=== PATIENT | female | born 1950 | race American Indian/Alaskan Native ===

== ENCOUNTER 2019-06-26 05:03 | Inpatient (IN) | payer MEDICARE ==
[2019-06-26] MEDS ORDERED: dilTIAZem 50 MG/10 ML INJ IV ONE (05:07)
[2019-06-26] MEDS ORDERED: SODIUM CHLORIDE 0.9% 1000 ML 1,000 ML IV ONE (05:07)
--- NOTE | 2019-06-26 05:09 | Emergency Department Report ---
ED Palpitations HPI - General Stated Complaint: DIFFICULTY IN BREATHING Time Seen by Provider: 06/26/19 05:05 Source: patient, EMS Mode of arrival: Stretcher Limitations: No Limitations - History of Present Illness Initial Comments: Patient is a 68-year-old female that presents emergency complaints of shortness of breath patient states that cough approximately 3 days. Patient states she's had nausea and vomiting for 3 days. Patient's initial arrival and now. Patient denies fever and chills. Patient denies chest pain. Patient states she called EMS because her shortness of breath worsened. MD Complaint: rapid heart beat, "heart racing", palpitations -: Sudden Context: occured during rest Associated Symptoms: shortness of breath. denies: syncope, near-syncope, nausea /vomiting, anxiety, diaphoresis, cough, parasthesias, feeling of impending doom, muscle cramps - Related Data Home Medications Medication Instructions Recorded Confirmed Last Taken Bisoprolol/Hctz (Nf) [Ziac 5/6.25 1 tab PO DAILY 03/18/14 03/18/14 03/18/14 (Nf)] HYDROcodone/ACETAMINOPHEN 1 tab PO PRN 03/18/14 03/18/14 Unknown [Hydrocodone Acetaminophen(Nf) 7.5/500 mg Tab] Methscopolamine [place] [Pamine] 1 tab PO DAILY 03/18/14 03/18/14 Unknown Allergies Allergy/AdvReac Type Severity Reaction Status Date / Time No Known Allergies Allergy Verified 03/18/14 13:43 ED Review of Systems ROS: Stated complaint: DIFFICULTY IN BREATHING Other details as noted in HPI Constitutional: denies: chills, fever Eyes: denies: eye pain, eye discharge, vision change ENT: denies: ear pain, throat pain Respiratory: shortness of breath. denies: cough, wheezing Cardiovascular: denies: chest pain, palpitations Endocrine: no symptoms reported Gastrointestinal: denies: abdominal pain, nausea, diarrhea Genitourinary: denies: urgency, dysuria, discharge Musculoskeletal: denies: back pain, joint swelling, arthralgia Skin: denies: rash, lesions Neurological: denies: headache, weakness, paresthesias Psychiatric: denies: anxiety, depression Hematological/Lymphatic: denies: easy bleeding, easy bruising ED Past Medical Hx - Past Medical History Previous Medical History?: Yes Hx Hypertension: Yes Hx Asthma: No Hx COPD: No Hx Tuberculosis: No Hx HIV: No Additional medical history: Mouth cancer. - Surgical History Past Surgical History?: Yes Hx Appendectomy: Yes (CHILDHOOD) Additional Surgical History: Mouth surgery of her mouth cancer. - Family History Family history: no significant - Social History Smoking Status: Never Smoker Substance Use Type: None - Medications Home Medications: Home Medications Medication Instructions Recorded Confirmed Last Taken Type Bisoprolol/Hctz (Nf) [Ziac 5/6.25 1 tab PO DAILY 03/18/14 03/18/14 03/18/14 History (Nf)] HYDROcodone/ACETAMINOPHEN 1 tab PO PRN 03/18/14 03/18/14 Unknown History [Hydrocodone Acetaminophen(Nf) 7.5/500 mg Tab] Methscopolamine [place] [Pamine] 1 tab PO DAILY 03/18/14 03/18/14 Unknown History ED Physical Exam - General Limitations: Physical Limitation General appearance: alert, in no apparent distress - Head Head exam: Present: atraumatic, normocephalic - Eye Eye exam: Present: normal appearance - ENT ENT exam: Present: mucous membranes dry - Neck Neck exam: Present: normal inspection - Respiratory Respiratory exam: Present: normal lung sounds bilaterally, rhonchi. Absent: respiratory distress, wheezes - Cardiovascular Cardiovascular Exam: Present: regular rate, normal rhythm, tachycardia. Absent: systolic murmur, diastolic murmur, rubs, gallop - GI/Abdominal GI/Abdominal exam: Present: soft, normal bowel sounds. Absent: distended, tenderness - Extremities Exam Extremities exam: Present: normal inspection - Back Exam Back exam: Present: normal inspection - Neurological Exam Neurological exam: Present: alert, oriented X3 - Psychiatric Psychiatric exam: Present: normal affect, normal mood - Skin Skin exam: Present: warm, dry, intact, normal color. Absent: rash ED Course Vital Signs 06/26/19 06/26/19 06/26/19 05:10 05:16 05:20 Temperature 103.2 F H Pulse Rate 155 H 153 H Respiratory 41 H 39 H 1 L Rate Blood Pressure 159/77 06/26/19 06/26/19 06/26/19 05:21 05:30 05:45 Temperature 103.2 F H Pulse Rate 155 H 153 H 148 H Respiratory 22 37 H 38 H Rate Blood Pressure 159/77 159/77 138/62 06/26/19 06/26/19 06/26/19 06:00 06:15 06:30 Temperature Pulse Rate 151 H 121 H Respiratory 33 H 25 H 26 H Rate Blood Pressure 109/91 109/91 109/91 - Reevaluation(s) Reevaluation #1: Patient placed on cardiac nurse specialist and shows an irregular rate of greater than 150. Patient will be given a Cardizem push and given fluids. Patient found to be febrile. Patient was given rectal Tylenol and given fluids. Sepsis protocol initiated. 06/26/19 05:15 Reevaluation #2: Nurses unable to obtain as peripheral IV and central line placed. Patient given Cardizem and heart rate decreased. Patient will be given fluids. Patient placed on a Cardizem drip. 06/26/19 0550 Reevaluation #3: I discussed all results and plan of care with patient. Patient agrees plan of care. 06/26/19 06:16 - Consultations Consultation #1: Hospitalist consulted for admission. Hospitalist admit patient. 06/26/19 06:17 - Central Line Placement Right Femoral Consent Obtained: verbal consent, emergent situation Time Out Performed: Yes Patient Placed on Monitor/Pulse Ox: Yes MD Prep: mask, gown, gloves Central Line Prep: Povidone-Iodine 1%, Chlorhexidine scrub, sterile drapes applied Local Anesthesia Used: Lidocaine 1% Ultrasound Used for Placement: Yes Central Line Lumen Inserted: triple Bloods Obtained for Lab: Yes Central Line Position: good blood return, all ports aspirated, flus, sutured in place with 2-0 Dressing Applied: Tegaderm Patient Tolerated Procedure: well, no complications Complications: none ED Medical Decision Making - Lab Data Result diagrams: 06/26/19 05:43 06/26/19 05:43 - EKG Data -: EKG Interpreted by Me EKG shows normal: sinus rhythm, axis, intervals, QRS complexes, ST-T waves Rate: tachycardia - Radiology Data Radiology results: report reviewed, image reviewed interpreted by me: Bilateral pneumonia. - Medical Decision Making Patient is a 68-year-old female that presents emergency room with complaints of shortness of breath and cough. Patient also had nausea and vomiting for 3 days. Patient found to be febrile and tachycardic. Patient's tachycardic rhythm appears to be SVT and was given Cardizem. Nursing notes were obtained peripheral IV and a right femoral central line placed. See procedure note. Patient had x-ray which shows bilateral pneumonia. Patient's labs unremarkable except for lactic acidosis. Patient given fluids and antibiotics. Patient given Tylenol for her fever. - Differential Diagnosis pneumonia, sepsis, SIRS, nausea vomiting, SVT, tachycardia Critical Care Time: Yes Critical care time in (mins) excluding proc time.: 35 Critical care attestation.: If time is entered above; I have spent that time in minutes in the direct care of this critically ill patient, excluding procedure time. Critical Care Time: 35 minutes ED Disposition Clinical Impression: Tachycardia, Cough, SVT (supraventricular tachycardia), Lactic acid acidosis, SOB (shortness of breath) Fever Qualifiers: Fever type: unspecified Qualified Code(s): R50.9 - Fever, unspecified Pneumonia Qualifiers: Pneumonia type: due to unspecified organism Laterality: bilateral Lung location: unspecified part of lung Qualified Code(s): J18.9 - Pneumonia, unspecified organism Sepsis Qualifiers: Sepsis type: sepsis due to unspecified organism Sepsis acute organ dysfunction status: without acute organ dysfunction Qualified Code(s): A41.9 - Sepsis, unspecified organism Disposition: DC-09 OP ADMIT IP TO THIS HOSP Is pt being admited?: Yes Does the pt Need Aspirin: No Condition: Critical Time of Disposition: 06:16
[2019-06-26] MEDS ORDERED: SODIUM CHLORIDE 0.9% 1000 ML IV SOLN IV ONE (05:16)
[2019-06-26] MEDS ORDERED: CEFEPIME/NS 2 GM/100 ML 2 GM/100 ML BAG IV ONE (05:17)
[2019-06-26] MEDS ORDERED: ACETAMINOPHEN 500 MG TAB ONE (05:33)
--- NOTE | 2019-06-26 05:36 | XRay Report ---
CHEST 1 VIEW INDICATION: tachy. COMPARISON: None. FINDINGS: Support devices: None. Heart: Normal. Lungs/Pleura: There are patchy bilateral pulmonary opacities. No significant effusion, no pneumothora x. IMPRESSION: 1. Patchy bilateral airspace disease is concerning for multifocal pneumonia. Follow-up is recommended . Signer Name: Adam Sullivan MD Signed: 06/26/2019 5:31 AM Workstation Name: [id number]
[2019-06-26] MEDS ORDERED: ACETAMINOPHEN 325 MG/10.15 ML ORAL LIQD UNIT DOSE ONE (05:39)
[2019-06-26] MEDS ORDERED: ACETAMINOPHEN 325 MG/10.15 ML ORAL LIQD UNIT DOSE PO ONE (05:40)
[2019-06-26] MEDS ORDERED: LIDOCAINE (2%) 20 MG/1 ML VIAL 20 ML MDV INFILTRATI ONE (05:48)
[2019-06-26 05:56] LABS: Hematocrit 40.7 % (30.3-42.9); Hemoglobin 14.3 gm/dl (10.1-14.3); Mean Corpuscular HGB Conc 35 % (30-34); Mean Corpuscular Volume 100 fl (79-97); Platelet Count 287 K/mm3 (140-440); Red Blood Count 4.08 M/mm3 (3.65-5.03); Red Cell Distribution Width 14.5 % (13.2-15.2)
[2019-06-26] MEDS ORDERED: dilTIAZem/D5W 100 MG/100 ML BAG IV SCH ×2 (06:00→07:00)
[2019-06-26 06:08] LABS: Alanine Aminotransferase 49 units/L (7-56); Albumin 4.1 g/dL (3.9-5); BUN/Creatinine Ratio 17; Blood Urea Nitrogen 15 mg/dL (7-17); Calcium 9.5 mg/dL (8.4-10.2); Hemolysis Index 4
[2019-06-26 06:54] LABS: Band Neutrophils # (Manual) 0.5 K/mm3; Basophils % (Manual) 0 % (0.0-1.8); Eosinophils % (Manual) 0 % (0.0-4.3); Platelet Estimate Consistent w Auto; Total Cells Counted 100
[2019-06-26 07:43] LABS: Bacteria,Urine 1+ /HPF (Negative); Bilirubin,Urine NEG (Negative); Blood,Urine NEG (Negative); Color,Urine Straw (Yellow); Mucus,Urine FEW /HPF; Protein,Urine <15 mg/dL mg/dL (Negative); Urobilinogen,Urine < 2.0 mg/dL (<2.0)
[2019-06-26 07:48] LABS: Amphetamine Screen,Urine PRESUMPTIVE NEGATIVE; Benzodiazepines Screen,Urine PRESUMPTIVE NEGATIVE; Cannabinoid Screen,Urine PRESUMPTIVE NEGATIVE; Cocaine Screen,Urine PRESUMPTIVE NEGATIVE; Methadone Screen,Urine PRESUMPTIVE NEGATIVE; Opiate Screen,Urine PRESUMPTIVE NEGATIVE
[2019-06-26] MEDS ORDERED: [UNRECOGNIZED DRUG - OTHER] PO PRN (09:46)
[2019-06-26] MEDS ORDERED: HYDROCODONE PO PRN (09:46)
[2019-06-26] MEDS ORDERED: ACETAMINOPHEN PO PRN (09:46)
[2019-06-26] MEDS ORDERED: ACETAMINOPHEN 325 MG TAB PO PRN (09:47)
[2019-06-26] MEDS ORDERED: ONDANSETRON 4 MG/2 ML INJ IV PRN (09:47)
--- NOTE | 2019-06-26 09:51 | History and Physical Report ---
History of Present Illness Date of admission: 06/26/19 06:36 Chief complaint: Shortness of breath History of present illness: 68-year-old woman who presents to the hospital with cough x3 days. Associated with nausea vomiting. She also did not check her temperature at home. Does not know if she is having fevers. She reports palpitations, feeling like her heart is racing away from her.She also presents complaining of palpitations. She is reporting fatigue malaise, and just feels quite terrible. She denies any sick contacts. She states that she had bronchitis a long time ago but does not usually have lung problems. Past medical history; hypertension, history of mouth cancer Surgical history; appendectomy, and mild surgery for mouth cancer Family history; non contributory social hx; denies hx of smoker Medications and Allergies Allergies Allergy/AdvReac Type Severity Reaction Status Date / Time No Known Allergies Allergy Verified 03/18/14 13:43 Home Medications Medication Instructions Recorded Confirmed Last Taken Type Bisoprolol/Hctz (Nf) [Ziac 5/6.25 1 tab PO DAILY 03/18/14 06/26/19 03/18/14 History (Nf)] HYDROcodone/ACETAMINOPHEN 1 tab PO PRN 03/18/14 06/26/19 Unknown History [Hydrocodone Acetaminophen(Nf) 7.5/500 mg Tab] Methscopolamine [place] [Pamine] 1 tab PO DAILY 03/18/14 06/26/19 Unknown History Active Meds: Active Medications Acetaminophen (Tylenol) 650 mg PO Q4H PRN PRN Reason: Pain MILD(1-3)/Fever >100.5/CALLEJAS Miscellaneous Medication (Methscopolamine [place] [Pamine]) 1 tab PO DAILY PEPE Miscellaneous Medication (Hydrocodone/Acetaminophen [Hydrocodone Acetaminophen(Nf) 7.5/500 Mg Tab]) 1 tab PO Q6H PRN PRN Reason: Pain, Moderate (4-6) Ondansetron HCl (Zofran) 4 mg IV Q8H PRN PRN Reason: Nausea And Vomiting Sodium Chloride (Sodium Chloride Flush Syringe 10 Ml) 10 ml IV BID PEPE Sodium Chloride (Sodium Chloride Flush Syringe 10 Ml) 10 ml IV PRN PRN PRN Reason: LINE FLUSH Review of Systems All systems: negative Exam - Constitutional Vitals: Temp Pulse Resp BP Pulse Ox 100.4 F H 114 H 26 H 169/69 88 06/26/19 07:20 06/26/19 09:30 06/26/19 09:30 06/26/19 09:30 06/26/19 09:00 General appearance: Present: severe distress, well-nourished - EENT Eyes: Present: PERRL ENT: hearing intact, clear oral mucosa - Neck Neck: Present: supple, normal ROM - Respiratory Respiratory effort: normal Respiratory: bilateral: diminished, rhonchi - Cardiovascular Heart Sounds: Present: S1 & S2. Absent: rub, click - Extremities Extremities: pulses symmetrical, No edema Peripheral Pulses: within normal limits - Abdominal General gastrointestinal: Present: soft, non-tender, non-distended, normal bowel sounds Female genitourinary: Present: normal - Integumentary Integumentary: Present: clear, warm, dry - Musculoskeletal Musculoskeletal: gait normal, strength equal bilaterally - Psychiatric Psychiatric: appropriate mood/affect, intact judgment & insight - Neurologic Neurologic: CNII-XII intact, moves all extremities Results - Labs CBC & Chem 7: 06/26/19 05:43 06/26/19 05:43 Labs: Laboratory Last Values WBC 10.4 K/mm3 (4.5-11.0) 06/26/19 05:43 RBC 4.08 M/mm3 (3.65-5.03) 06/26/19 05:43 Hgb 14.3 gm/dl (10.1-14.3) 06/26/19 05:43 Hct 40.7 % (30.3-42.9) 06/26/19 05:43 MCV 100 fl (79-97) H 06/26/19 05:43 MCH 35 pg (28-32) H 06/26/19 05:43 MCHC 35 % (30-34) H 06/26/19 05:43 RDW 14.5 % (13.2-15.2) 06/26/19 05:43 Plt Count 287 K/mm3 (140-440) 06/26/19 05:43 Add Manual Diff Complete 06/26/19 05:43 Total Counted 100 06/26/19 05:43 Seg Neutrophils % Repossession Agent 06/26/19 05:43 Seg Neuts % (Manual) 87.0 % (40.0-70.0) H 06/26/19 05:43 Band Neutrophils % 5.0 % 06/26/19 05:43 Lymphocytes % (Manual) 6.0 % (13.4-35.0) L 06/26/19 05:43 Reactive Lymphs % (Man) 0 % 06/26/19 05:43 Monocytes % (Manual) 2.0 % (0.0-7.3) 06/26/19 05:43 Eosinophils % (Manual) 0 % (0.0-4.3) 06/26/19 05:43 Basophils % (Manual) 0 % (0.0-1.8) 06/26/19 05:43 Metamyelocytes % 0 % 06/26/19 05:43 Myelocytes % 0 % 06/26/19 05:43 Promyelocytes % 0 % 06/26/19 05:43 Blast Cells % 0 % 06/26/19 05:43 Nucleated RBC % Not Reportable 06/26/19 05:43 Seg Neutrophils # Man 9.0 K/mm3 (1.8-7.7) H 06/26/19 05:43 Band Neutrophils # 0.5 K/mm3 06/26/19 05:43 Lymphocytes # (Manual) 0.6 K/mm3 (1.2-5.4) L 06/26/19 05:43 Abs React Lymphs (Man) 0.0 K/mm3 06/26/19 05:43 Monocytes # (Manual) 0.2 K/mm3 (0.0-0.8) 06/26/19 05:43 Eosinophils # (Manual) 0.0 K/mm3 (0.0-0.4) 06/26/19 05:43 Basophils # (Manual) 0.0 K/mm3 (0.0-0.1) 06/26/19 05:43 Metamyelocytes # 0.0 K/mm3 06/26/19 05:43 Myelocytes # 0.0 K/mm3 06/26/19 05:43 Promyelocytes # 0.0 K/mm3 06/26/19 05:43 Blast Cells # 0.0 K/mm3 06/26/19 05:43 WBC Morphology Not Reportable 06/26/19 05:43 Hypersegmented Neuts Not Reportable 06/26/19 05:43 Hyposegmented Neuts Not Reportable 06/26/19 05:43 Hypogranular Neuts Not Reportable 06/26/19 05:43 Smudge Cells Not Reportable 06/26/19 05:43 Toxic Granulation Not Reportable 06/26/19 05:43 Toxic Vacuolation Not Reportable 06/26/19 05:43 Dohle Bodies Not Reportable 06/26/19 05:43 Pelger-Huet Anomaly Not Reportable 06/26/19 05:43 Ty Rods Not Reportable 06/26/19 05:43 Platelet Estimate Consistent w auto 06/26/19 05:43 Clumped Platelets Not Reportable 06/26/19 05:43 Plt Clumps, EDTA Not Reportable 06/26/19 05:43 Large Platelets Not Reportable 06/26/19 05:43 Giant Platelets Not Reportable 06/26/19 05:43 Platelet Satelliting Not Reportable 06/26/19 05:43 Plt Morphology Comment Not Reportable 06/26/19 05:43 RBC Morphology Not Reportable 06/26/19 05:43 Dimorphic RBCs Not Reportable 06/26/19 05:43 Polychromasia Not Reportable 06/26/19 05:43 Hypochromasia Not Reportable 06/26/19 05:43 Poikilocytosis Not Reportable 06/26/19 05:43 Anisocytosis Not Reportable 06/26/19 05:43 Microcytosis Not Reportable 06/26/19 05:43 Macrocytosis Not Reportable 06/26/19 05:43 Spherocytes Not Reportable 06/26/19 05:43 Pappenheimer Bodies Not Reportable 06/26/19 05:43 Sickle Cells Not Reportable 06/26/19 05:43 Target Cells Not Reportable 06/26/19 05:43 Tear Drop Cells Not Reportable 06/26/19 05:43 Ovalocytes Not Reportable 06/26/19 05:43 Helmet Cells Not Reportable 06/26/19 05:43 [place] Bodies Not Reportable 06/26/19 05:43 [place] Rings Not Reportable 06/26/19 05:43 [place] Cells Not Reportable 06/26/19 05:43 Bite Cells Not Reportable 06/26/19 05:43 Crenated Cell Not Reportable 06/26/19 05:43 Elliptocytes Not Reportable 06/26/19 05:43 Acanthocytes (Spur) Not Reportable 06/26/19 05:43 Rouleaux Not Reportable 06/26/19 05:43 Hemoglobin C Crystals Not Reportable 06/26/19 05:43 Schistocytes Not Reportable 06/26/19 05:43 Malaria parasites Not Reportable 06/26/19 05:43 [place] Bodies Not Reportable 06/26/19 05:43 Hem Pathologist Commnt No 06/26/19 05:43 Sodium 141 mmol/L (137-145) 06/26/19 05:43 Potassium 3.7 mmol/L (3.6-5.0) 06/26/19 05:43 Chloride 95.9 mmol/L (98-107) L 06/26/19 05:43 Carbon Dioxide 28 mmol/L (22-30) 06/26/19 05:43 Anion Gap 21 mmol/L 06/26/19 05:43 BUN 15 mg/dL (7-17) 06/26/19 05:43 Creatinine 0.9 mg/dL (0.7-1.2) 06/26/19 05:43 Estimated GFR > 60 ml/min 06/26/19 05:43 BUN/Creatinine Ratio 17 % 06/26/19 05:43 Glucose 153 mg/dL (65-100) H 06/26/19 05:43 Lactic Acid 6.00 mmol/L (0.7-2.0) H* 06/26/19 05:43 Calcium 9.5 mg/dL (8.4-10.2) 06/26/19 05:43 Total Bilirubin 0.40 mg/dL (0.1-1.2) 06/26/19 05:43 AST 100 units/L (5-40) H 06/26/19 05:43 ALT 49 units/L (7-56) 06/26/19 05:43 Alkaline Phosphatase 54 units/L (35-129) 06/26/19 05:43 Troponin T < 0.010 ng/mL (0.00-0.029) 06/26/19 05:43 Total Protein 7.6 g/dL (6.3-8.2) 06/26/19 05:43 Albumin 4.1 g/dL (3.9-5) 06/26/19 05:43 Albumin/Globulin Ratio 1.2 % 06/26/19 05:43 Urine Color Straw (Yellow) 06/26/19 Unknown Urine Turbidity Clear (Clear) 06/26/19 Unknown Urine pH 6.0 (5.0-7.0) 06/26/19 Unknown Ur Specific [place] 1.006 (1.003-1.030) 06/26/19 Unknown Urine Protein <15 mg/dl mg/dL (Negative) 06/26/19 Unknown Urine Glucose (UA) Neg mg/dL (Negative) 06/26/19 Unknown Urine Ketones Neg mg/dL (Negative) 06/26/19 Unknown Urine Blood Neg (Negative) 06/26/19 Unknown Urine Nitrite Neg (Negative) 06/26/19 Unknown Urine Bilirubin Neg (Negative) 06/26/19 Unknown Urine Urobilinogen < 2.0 mg/dL (<2.0) 06/26/19 Unknown Ur Leukocyte Esterase Neg (Negative) 06/26/19 Unknown Urine WBC (Auto) 1.0 /HPF (0.0-6.0) 06/26/19 Unknown Urine RBC (Auto) 1.0 /HPF (0.0-6.0) 06/26/19 Unknown Urine Bacteria (Auto) 1+ /HPF (Negative) 06/26/19 Unknown Urine Mucus Few /HPF 06/26/19 Unknown Urine Opiates Screen Presumptive negative 06/26/19 Unknown Urine Methadone Screen Presumptive negative 06/26/19 Unknown Ur Barbiturates Screen Presumptive negative 06/26/19 Unknown Ur Phencyclidine Scrn Presumptive negative 06/26/19 Unknown Ur Amphetamines Screen Presumptive negative 06/26/19 Unknown U Benzodiazepines Scrn Presumptive negative 06/26/19 Unknown Urine Cocaine Screen Presumptive negative 06/26/19 Unknown U Marijuana (THC) Screen Presumptive negative 06/26/19 Unknown Drugs of Abuse Note Disclamer 06/26/19 Unknown Assessment and Plan Assessment and plan: 68-year-old woman who was in the hospital with cough sob and palpitations. Multifocal pneumonia/sepsis Likely gram-positive bacteria Empiric antibiotics, sputum culture A. fib with RVR and hypercoagulable state Continue rate control medications, cardiology consult, echo. Will confer with cardiology about long-term stroke prophylaxis medications, she is only on prophylaxis with Lovenox at this time. She received Cardizem in ER with good response. Hypomagnesemia Repleted Hypothyroidism This is a new diagnosis for the patient, will hold off on giving Synthroid at this time as patient is tachycardic with RVR. Acute hypoxic respiratory failure Continue supplemental oxygen, wean as tolerated Hypertension Optimize meds. DVT prophylaxis; lovenox
[2019-06-26] MEDS ORDERED: METHSCOPOLAMINE BROMIDE PO SCH (10:00)
[2019-06-26] MEDS ORDERED: carvediloL 6.25 MG TAB PO SCH (11:00)
[2019-06-26] MEDS ORDERED: carvediloL 6.25 MG TAB ONE (11:17)
--- NOTE | 2019-06-26 11:20 | Consultation ---
History of Present Illness Consult date: 06/26/19 Requesting physician: WM THAYER Consult reason: atrial fibrillation History of present illness: The pt is a 68 YO female with a past medical history of HTN. She is previously unknown to our practice. She is a rather poor historian. She states she does not know why she is in the hospital. She does recall experiencing some SOB prior to arrival. She states she is very sleepy. Per ED documentation, pt presented with c/o shortness of n/v, breath and cough for approximately 3 days. Pt denies any occurrence of chest pain, palpitations, diaphoresis, dizziness or syncope. Per ED documentation, patient was placed on court recording monitor which showed an irregular rate of greater than 150, suspected to be AFib with RVR, and was given cardizem and initiated on cardizem gtt thus cardiology has been consulted. However, review of telemetry and ECGs since admission shows sinus tachycardia, no AFib or AFlutter noted. On evaluation, pt is in sinus tachycardia HR 100s - 110s. She is not currently receiving IV cardizem. She is on O2 via venti mask. CXR shows bilateral infiltrates suspicious for PNA. Pt denies any known prior cardiac issues or cardiac w/u. Past History Past Medical History: hypertension Medications and Allergies Allergies Allergy/AdvReac Type Severity Reaction Status Date / Time No Known Allergies Allergy Verified 03/18/14 13:43 Home Medications Medication Instructions Recorded Confirmed Last Taken Type Bisoprolol/Hctz (Nf) [Ziac 5/6.25 1 tab PO DAILY 03/18/14 03/18/14 03/18/14 History (Nf)] HYDROcodone/ACETAMINOPHEN 1 tab PO PRN 03/18/14 03/18/14 Unknown History [Hydrocodone Acetaminophen(Nf) 7.5/500 mg Tab] Methscopolamine [place] [Pamine] 1 tab PO DAILY 03/18/14 03/18/14 Unknown History Active Meds: Active Medications Acetaminophen (Tylenol) 650 mg PO Q4H PRN PRN Reason: Pain MILD(1-3)/Fever >100.5/CALLEJAS Acetaminophen/Hydrocodone Bitart ([place] 7.5/325) 1 each PO Q6H PRN PRN Reason: Pain, Moderate (4-6) Carvedilol (Coreg) 6.25 mg PO BID [facility] Enoxaparin Sodium (Enoxaparin) 40 mg SUB-Q QDAY@2200 [facility] Ceftriaxone Sodium (Rocephin/Ns 1 Gm/50 Ml) 1 gm in 50 mls @ 100 mls/hr IV Q24HR [facility]; Protocol Azithromycin 500 mg/ Sodium (Chloride) 250 mls @ 250 mls/hr IV Q24HR [facility]; Protocol Sodium Chloride (Nacl 0.9% 1000 Ml) 1,000 mls @ 75 mls/hr IV DIRECT [facility]PE Magnesium Sulfate (Magnesium Sulfate 4gm/100ml) 4 gm in 100 mls @ 25 mls/hr IV ONCE ONE Stop: 06/26/19 15:59 Miscellaneous Medication (Methscopolamine [place] [Pamine]) 1 tab PO DAILY [facility] Last Admin: 06/26/19 11:11 Dose: Not Given Documented by: Ondansetron HCl (Zofran) 4 mg IV Q8H PRN PRN Reason: Nausea And Vomiting Sodium Chloride (Sodium Chloride Flush Syringe 10 Ml) 10 ml IV BID [facility] Last Admin: 06/26/19 10:00 Dose: 10 ml Documented by: Sodium Chloride (Sodium Chloride Flush Syringe 10 Ml) 10 ml IV PRN PRN PRN Reason: LINE FLUSH Review of Systems Constitutional: no weight loss, no weight gain, no fever, no chills, no sweats Ears, nose, mouth and throat: no ear pain, no nose pain, no sinus pressure, no sinus pain Cardiovascular: shortness of breath, no chest pain, no orthopnea, no palpitations, no rapid/irregular heart beat, no edema, no syncope, no lightheadedness, no leg edema Respiratory: cough, shortness of breath, no congestion, no wheezing, no pain on inspiration Gastrointestinal: no abdominal pain, no nausea, no vomiting, no diarrhea, no constipation, no change in bowel habits Genitourinary Female: no pelvic pain, no flank pain, no dysuria, no urinary frequency, no urgency Musculoskeletal: no neck stiffness, no neck pain, no shooting arm pain, no arm numbness/tingling, no low back pain, no shooting leg pain Integumentary: no rash, no pruritis, no redness, no sores, no wounds Neurological: no head injury, no paralysis, no weakness, no parathesias, no numbness, no tingling, no seizures, no syncope Psychiatric: no anxiety Endocrine: no cold intolerance, no heat intolerance Hematologic/Lymphatic: no easy bruising, no easy bleeding Allergic/Immunologic: no urticaria Physical Examination Vital Signs Pulse Resp 155 H 41 H 06/26/19 05:10 06/26/19 05:10 General appearance: no acute distress HEENT: Positive: PERRL, Normocephaly, Mucus Membranes Moist Neck: Positive: neck supple, trachea midline Cardiac: Positive: Regular Rhythm, S1/S2 Lungs: Positive: Decreased Breath Sounds, Rhonchi, Oxygen Neuro: Positive: Grossly Intact Abdomen: Negative: Tender Skin: Negative: Rash Musculoskeletal: No Pain Extremities: Absent: edema Results 06/26/19 05:43 06/26/19 05:43 Cardiac Enzymes 06/26/19 Range/Units 05:43 AST 100 H (5-40) units/L CBC 06/26/19 Range/Units 05:43 WBC 10.4 (4.5-11.0) K/mm3 RBC 4.08 (3.65-5.03) M/mm3 Hgb 14.3 (10.1-14.3) gm/dl Hct 40.7 (30.3-42.9) % Plt Count 287 (140-440) K/mm3 Comprehensive Metabolic Panel 06/26/19 Range/Units 05:43 Sodium 141 (137-145) mmol/L Potassium 3.7 (3.6-5.0) mmol/L Chloride 95.9 L (98-107) mmol/L Carbon Dioxide 28 (22-30) mmol/L BUN 15 (7-17) mg/dL Creatinine 0.9 (0.7-1.2) mg/dL Glucose 153 H (65-100) mg/dL Calcium 9.5 (8.4-10.2) mg/dL AST 100 H (5-40) units/L ALT 49 (7-56) units/L Alkaline Phosphatase 54 (35-129) units/L Total Protein 7.6 (6.3-8.2) g/dL Albumin 4.1 (3.9-5) g/dL - Imaging and Cardiology Echo: pending EKG: report reviewed, image reviewed EKG interpretations - Telemetry EKG Rhythm: Sinus Tachycardia - EKG Sinus rhythms and dysrhythmias: sinus tachycardia Assessment and Plan Review of telemetry and ECGs since admission shows sinus tachycardia, no AFib or AFlutter noted. On evaluation, pt is in sinus tachycardia HR 100s - 110s. She is not currently receiving IV cardizem. She is on O2 via venti mask. CXR shows bilateral infiltrates suspicious for PNA. Pt noted to be febrile, blood cultures pending. PNA management per primary team. Optimize HR - initiate PO Cardizem. Obtain echo and check thyroid profile. Cont to observe on telemetry. Further recs to follow per hospital course. The patient has been seen in conjunction with Dr. Singh who agrees with the assessment and plan of care. - Patient Problems (1) Sinus tachycardia Current Visit: Yes Status: Acute (2) Pneumonia Current Visit: Yes Status: Acute Qualifiers: Pneumonia type: due to unspecified organism Laterality: bilateral Lung location: unspecified part of lung Qualified Code(s): J18.9 - Pneumonia, unspecified organism (3) Fever Current Visit: Yes Status: Acute Qualifiers: Fever type: unspecified Qualified Code(s): R50.9 - Fever, unspecified (4) HTN (hypertension) Current Visit: Yes Status: Chronic
[2019-06-26] MEDS ORDERED: MAGNESIUM SULFATE 4 GM/100 ML BAG IV ONE (12:00)
[2019-06-26] MEDS: AZITHROMYCIN 500 MG in SODIUM CHLORIDE 0.9% 250ML 250 ML IV SCH (12:24)
[2019-06-26] MEDS: SODIUM CHLORIDE 0.9% 1000 ML 1,000 ML IV SCH (12:32)
[2019-06-26] MEDS: cefTRIAXone/NS 1 GM/50 ML 1 GM/50 ML BAG IV SCH (13:33)
--- NOTE | 2019-06-26 16:30 | Consultation ---
History of Present Illness Consult date: 06/26/19 Requesting physician: WM THAYER History of present illness: 68-year-old woman who presents to the hospital with cough x3 days. Associated with nausea vomiting. She also did not check her temperature at home. Does not know if she is having fevers. She reports palpitations, feeling like her heart is racing away from her.She also presents complaining of palpitations. She is reporting fatigue malaise, and just feels quite terrible. She denies any sick contacts. She states that she had bronchitis a long time ago but does not usua lly have lung problems. She was admitted to the ICU and I have been consulted fro critical care brandyn payne. She has been on 100% NRBM, which was switched to venturi mask. She complains of feeling very sleepy and tired. patient was seen and examined. Vitals, labs, medications, chart and imaging reviewed. ROS Constitutional: denies: chills, fever Eyes: denies: eye pain, eye discharge, vision change ENT: denies: ear pain, throat pain Respiratory: shortness of breath. denies: cough, wheezing Cardiovascular: denies: chest pain, palpitations Endocrine: no symptoms reported Gastrointestinal: denies: abdominal pain, nausea, diarrhea Genitourinary: denies: urgency, dysuria, discharge Musculoskeletal: denies: back pain, joint swelling, arthralgia Skin: denies: rash, lesions Neurological: denies: headache, weakness, paresthesias Psychiatric: denies: anxiety, depression Hematological/Lymphatic: denies: easy bleeding, easy bruising Past medical history; hypertension, history of mouth cancer Surgical history; appendectomy, and mild surgery for mouth cancer Family history; non contributory Social hx; denies history of smoking Past History Past Medical History: hypertension Medications and Allergies Allergies Allergy/AdvReac Type Severity Reaction Status Date / Time No Known Allergies Allergy Verified 03/18/14 13:43 Home Medications Medication Instructions Recorded Confirmed Last Taken Type Bisoprolol/Hctz (Nf) [Ziac 5/6.25 1 tab PO DAILY 03/18/14 06/26/19 03/18/14 History (Nf)] HYDROcodone/ACETAMINOPHEN 1 tab PO PRN 03/18/14 06/26/19 Unknown History [Hydrocodone Acetaminophen(Nf) 7.5/500 mg Tab] Methscopolamine [place] [Pamine] 1 tab PO DAILY 03/18/14 06/26/19 Unknown History clonazePAM [Klonopin] 1 mg PO HS 06/26/19 06/26/19 Unknown History Active Meds: Active Medications Acetaminophen (Tylenol) 650 mg PO Q4H PRN PRN Reason: Pain MILD(1-3)/Fever >100.5/[place]AS Acetaminophen/Hydrocodone Bitart ([place] 7.5/325) 1 each PO Q6H PRN PRN Reason: Pain, Moderate (4-6) Diltiazem HCl (Cardizem) 60 mg PO Q8HR [facility] Last Admin: 06/26/19 14:51 Dose: 60 mg Documented by: Enoxaparin Sodium (Enoxaparin) 40 mg SUB-Q QDAY@2200 [facility] Ceftriaxone Sodium (Rocephin/Ns 1 Gm/50 Ml) 1 gm in 50 mls @ 100 mls/hr IV Q24HR [facility]; Protocol Last Admin: 06/26/19 13:33 Dose: 100 mls/hr Documented by: Azithromycin 500 mg/ Sodium (Chloride) 250 mls @ 250 mls/hr IV Q24HR [facility]; Protocol Last Admin: 06/26/19 12:24 Dose: 250 mls/hr Documented by: Sodium Chloride (Nacl 0.9% 1000 Ml) 1,000 mls @ 75 mls/hr IV DIRECT [facility] Last Admin: 06/26/19 12:32 Dose: 75 mls/hr Documented by: Miscellaneous Medication (Methscopolamine [place] [Pamine]) 1 tab PO DAILY [facility] Last Admin: 06/26/19 11:11 Dose: Not Given Documented by: Ondansetron HCl (Zofran) 4 mg IV Q8H PRN PRN Reason: Nausea And Vomiting Sodium Chloride (Sodium Chloride Flush Syringe 10 Ml) 10 ml IV BID [facility] Last Admin: 06/26/19 10:00 Dose: 10 ml Documented by: Sodium Chloride (Sodium Chloride Flush Syringe 10 Ml) 10 ml IV PRN PRN PRN Reason: LINE FLUSH Physical Examination Vital signs: Vital Signs Pulse Resp 155 H 41 H 06/26/19 05:10 06/26/19 05:10 Vitals reviewed. General appearance: Present: severe distress, chronically ill looking - EENT Eyes: Present: PERRL ENT: hearing intact, - Neck Neck: Present: supple, normal ROM - Respiratory Respiratory effort: normal Respiratory: bilateral: diminished, rhonchi - Cardiovascular Heart Sounds: Present: S1 & S2. Absent: rub, click - Extremities Extremities: pulses symmetrical, No edema Peripheral Pulses: within normal limits - Abdominal General gastrointestinal: Present: soft, non-tender, non-distended, normal bowel sounds - Integumentary Integumentary: Present: clear, warm, dry Right femoral central venous catheter - Musculoskeletal Musculoskeletal: lying in bed - Psychiatric Psychiatric: appropriate mood/affect, intact judgment & insight - Neurologic Neurologic: CNII-XII intact, moves all extremities Results - Laboratory Findings CBC and BMP: 06/26/19 05:43 06/26/19 05:43 Abnormal lab findings: Abnormal Labs 06/26/19 06/26/19 06/26/19 05:43 05:43 05:43 MCV 100 H MCH 35 H MCHC 35 H Seg Neuts % (Manual) 87.0 H Lymphocytes % (Manual) 6.0 L Seg Neutrophils # Man 9.0 H Lymphocytes # (Manual) 0.6 L Chloride 95.9 L Glucose 153 H Lactic Acid 6.00 H* Magnesium AST 100 H Free T4 Thyroxine (T4) 06/26/19 06/26/19 06/26/19 05:43 12:47 12:47 MCV MCH MCHC Seg Neuts % (Manual) Lymphocytes % (Manual) Seg Neutrophils # Man Lymphocytes # (Manual) Chloride Glucose Lactic Acid 2.20 H* Magnesium 1.10 L AST Free T4 0.69 L Thyroxine (T4) 06/26/19 12:47 MCV MCH MCHC Seg Neuts % (Manual) Lymphocytes % (Manual) Seg Neutrophils # Man Lymphocytes # (Manual) Chloride Glucose Lactic Acid Magnesium AST Free T4 Thyroxine (T4) 3.9 L - Diagnostic Findings Chest x-ray: image reviewed (Multifocal infiltrates) Additional studies: Transthoracic echocardiogram- Preserved EF, no evidence of pulmonary hypertension Assessment and Plan Acute hypoxemic respiratory failure Multifocal infiltrates/presumed pneumonia Moderate protein calorie malnutrition Low grade fevers -ABG -Supplemental oxygen, wean for O2 sats>90% -Get CT chest to better characterize the multifocal infiltrates- the patient does not classic clinical signs of pneumonia(no leukocytosis, multifocal nature of the infiltrates). She has a history of oral cancer, need to r/o possible metastatic disease -Rapid flu swab -VTE prophylaxis -Optimize nutritional status- BMI 18.9 -Chronic home medications -Monitor hemodynamics closely -Monitor and trend fever curve Thank you for this consult. Will follow. Please do not hesitate to call with any questions or concerns
[2019-06-26] MEDS: ENOXAPARIN 40 MG/0.4 ML INJ SUB-Q SCH (21:31)
[2019-06-26] MEDS: clonazePAM 0.5 MG TAB PO SCH (23:28)
[2019-06-27] MEDS: SODIUM CHLORIDE 0.9% 1000 ML 1,000 ML IV SCH ×2 (05:22→20:01)
[2019-06-27 05:56] LABS: Hematocrit 31.5 % (30.3-42.9); Hemoglobin 10.7 gm/dl (10.1-14.3); Mean Corpuscular HGB Conc 34 % (30-34); Mean Corpuscular Volume 101 fl (79-97); Platelet Count 185 K/mm3 (140-440); Red Blood Count 3.13 M/mm3 (3.65-5.03); Red Cell Distribution Width 14.7 % (13.2-15.2)
[2019-06-27 06:20] LABS: BUN/Creatinine Ratio 15; Blood Urea Nitrogen 9 mg/dL (7-17); Calcium 7.5 mg/dL (8.4-10.2); Hemolysis Index 0
[2019-06-27 08:07] LABS: Basophils % (Manual) 0 % (0.0-1.8); Eosinophils % (Manual) 0 % (0.0-4.3); Monocytes % (Manual) 0 % (0.0-7.3); Total Cells Counted 100
[2019-06-27 08:08] LABS: Platelet Estimate Consistent w Auto; RBC Morphology Normal
[2019-06-27] MEDS ORDERED: POTASSIUM CHLORIDE ER 20 MEQ TAB PO NR (08:21)
--- NOTE | 2019-06-27 08:21 | Progress Note ---
Assessment and Plan Assessment and plan: 68-year-old woman who was in the hospital with cough sob and palpitations. Multifocal pneumonia/sepsis Likely gram-positive bacteria Empiric antibiotics, sputum culture Copd exacerbation; steroids, nebs, pulmonology consults, aggressive chest PT -She reports history of smoking, has now quit for years afib ruled out, has Sinus tachy due to sepsis Continue treatment for sepsis, cardiology input appreciated Hypokalemia Repleted Hypomagnesemia Repleted Hypothyroidism This is a new diagnosis for the patient, will hold off on giving Synthroid at this time as patient is tachycardic with RVR. -Plan to start her on low-dose Synthroid at time of discharge Acute hypoxic respiratory failure Continue supplemental oxygen, wean as tolerated, still on Ventimask today. Hypertension Optimize meds. DVT prophylaxis; lovenox History Interval history: Review of systems Constitutional: No fevers, no malaise, no joint pains CVS: No chest pain, no orthopnea, no pedal edema GI: No abdominal pain, no diarrhea, no vomiting, no constipation Respiratory: , Continues to complain of shortness of breath and cough. Hospitalist Physical - Physical exam Narrative exam: general.: Mild distress HEENT: Moist mucous membranes, extraocular muscles intact, no lymphadenopathy Neck: supple Cardiac: S1-S2 heard Lungs: Rhonchorous breath sounds, faint expiratory wheeze, decreased air entry Abdomen: soft , nontender, nondistended, bowel sounds positive Extremities: no edema clubbing or cyanosis Skin: no rash or lesions Neurologic: no gross focal deficits Psych: calm, and cooperative - Constitutional Vitals: Temp Pulse Resp BP Pulse Ox 98.4 F 95 H 18 117/57 97 06/27/19 07:14 06/27/19 04:28 06/27/19 07:14 06/27/19 07:14 06/27/19 06:18 General appearance: Present: severe distress, well-nourished Results - Labs CBC & Chem 7: 06/27/19 05:38 06/27/19 05:38 Labs: Laboratory Last Values WBC 14.3 K/mm3 (4.5-11.0) H 06/27/19 05:38 RBC 3.13 M/mm3 (3.65-5.03) L 06/27/19 05:38 Hgb 10.7 gm/dl (10.1-14.3) D 06/27/19 05:38 Hct 31.5 % (30.3-42.9) D 06/27/19 05:38 MCV 101 fl (79-97) H 06/27/19 05:38 MCH 34 pg (28-32) H 06/27/19 05:38 MCHC 34 % (30-34) 06/27/19 05:38 RDW 14.7 % (13.2-15.2) 06/27/19 05:38 Plt Count 185 K/mm3 (140-440) 06/27/19 05:38 Add Manual Diff Complete 06/27/19 05:38 Total Counted 100 06/27/19 05:38 Seg Neutrophils % [employer] Worker 06/27/19 05:38 Seg Neuts % (Manual) 96.0 % (40.0-70.0) H 06/27/19 05:38 Band Neutrophils % 0 % 06/27/19 05:38 Lymphocytes % (Manual) 3.0 % (13.4-35.0) L 06/27/19 05:38 Reactive Lymphs % (Man) 0 % 06/27/19 05:38 Monocytes % (Manual) 0 % (0.0-7.3) 06/27/19 05:38 Eosinophils % (Manual) 0 % (0.0-4.3) 06/27/19 05:38 Basophils % (Manual) 0 % (0.0-1.8) 06/27/19 05:38 Metamyelocytes % 1.0 % 06/27/19 05:38 Myelocytes % 0 % 06/27/19 05:38 Promyelocytes % 0 % 06/27/19 05:38 Blast Cells % 0 % 06/27/19 05:38 Nucleated RBC % Not Reportable 06/27/19 05:38 Seg Neutrophils # Man 13.7 K/mm3 (1.8-7.7) H 06/27/19 05:38 Band Neutrophils # 0.0 K/mm3 06/27/19 05:38 Lymphocytes # (Manual) 0.4 K/mm3 (1.2-5.4) L 06/27/19 05:38 Abs React Lymphs (Man) 0.0 K/mm3 06/27/19 05:38 Monocytes # (Manual) 0.0 K/mm3 (0.0-0.8) 06/27/19 05:38 Eosinophils # (Manual) 0.0 K/mm3 (0.0-0.4) 06/27/19 05:38 Basophils # (Manual) 0.0 K/mm3 (0.0-0.1) 06/27/19 05:38 Metamyelocytes # 0.1 K/mm3 06/27/19 05:38 Myelocytes # 0.0 K/mm3 06/27/19 05:38 Promyelocytes # 0.0 K/mm3 06/27/19 05:38 Blast Cells # 0.0 K/mm3 06/27/19 05:38 WBC Morphology Not Reportable 06/27/19 05:38 Hypersegmented Neuts Not Reportable 06/27/19 05:38 Hyposegmented Neuts Not Reportable 06/27/19 05:38 Hypogranular Neuts Not Reportable 06/27/19 05:38 Smudge Cells Not Reportable 06/27/19 05:38 Toxic Granulation Not Reportable 06/27/19 05:38 Toxic Vacuolation Not Reportable 06/27/19 05:38 Dohle Bodies Not Reportable 06/27/19 05:38 Pelger-Huet Anomaly Not Reportable 06/27/19 05:38 Ty Rods Not Reportable 06/27/19 05:38 Platelet Estimate Consistent w auto 06/27/19 05:38 Clumped Platelets Not Reportable 06/27/19 05:38 Plt Clumps, EDTA Not Reportable 06/27/19 05:38 Large Platelets Not Reportable 06/27/19 05:38 Giant Platelets Not Reportable 06/27/19 05:38 Platelet Satelliting Not Reportable 06/27/19 05:38 Plt Morphology Comment Not Reportable 06/27/19 05:38 RBC Morphology Normal 06/27/19 05:38 Dimorphic RBCs Not Reportable 06/27/19 05:38 Polychromasia Not Reportable 06/27/19 05:38 Hypochromasia Not Reportable 06/27/19 05:38 Poikilocytosis Not Reportable 06/27/19 05:38 Anisocytosis Not Reportable 06/27/19 05:38 Microcytosis Not Reportable 06/27/19 05:38 Macrocytosis Not Reportable 06/27/19 05:38 Spherocytes Not Reportable 06/27/19 05:38 Pappenheimer Bodies Not Reportable 06/27/19 05:38 Sickle Cells Not Reportable 06/27/19 05:38 Target Cells Not Reportable 06/27/19 05:38 Tear Drop Cells Not Reportable 06/27/19 05:38 Ovalocytes Not Reportable 06/27/19 05:38 Helmet Cells Not Reportable 06/27/19 05:38 Sidhu-[place] Bodies Not Reportable 06/27/19 05:38 [place] Rings Not Reportable 06/27/19 05:38 [place] Cells Not Reportable 06/27/19 05:38 Bite Cells Not Reportable 06/27/19 05:38 Crenated Cell Not Reportable 06/27/19 05:38 Elliptocytes Not Reportable 06/27/19 05:38 Acanthocytes (Spur) Not Reportable 06/27/19 05:38 Rouleaux Not Reportable 06/27/19 05:38 Hemoglobin C Crystals Not Reportable 06/27/19 05:38 Schistocytes Not Reportable 06/27/19 05:38 Malaria parasites Not Reportable 06/27/19 05:38 [place] Bodies Not Reportable 06/27/19 05:38 Hem Pathologist Commnt No 06/27/19 05:38 Sodium 139 mmol/L (137-145) 06/27/19 05:38 Potassium 3.5 mmol/L (3.6-5.0) L 06/27/19 05:38 Chloride 104.0 mmol/L (98-107) 06/27/19 05:38 Carbon Dioxide 23 mmol/L (22-30) 06/27/19 05:38 Anion Gap 16 mmol/L 06/27/19 05:38 BUN 9 mg/dL (7-17) 06/27/19 05:38 Creatinine 0.6 mg/dL (0.7-1.2) L 06/27/19 05:38 Estimated GFR > 60 ml/min 06/27/19 05:38 BUN/Creatinine Ratio 15 % 06/27/19 05:38 Glucose 137 mg/dL (65-100) H 06/27/19 05:38 Lactic Acid 2.20 mmol/L (0.7-2.0) H* 06/26/19 12:47 Calcium 7.5 mg/dL (8.4-10.2) L D 06/27/19 05:38 Magnesium 1.10 mg/dL (1.7-2.3) L 06/26/19 05:43 Total Bilirubin 0.40 mg/dL (0.1-1.2) 06/26/19 05:43 AST 100 units/L (5-40) H 06/26/19 05:43 ALT 49 units/L (7-56) 06/26/19 05:43 Alkaline Phosphatase 54 units/L (35-129) 06/26/19 05:43 Troponin T < 0.010 ng/mL (0.00-0.029) 06/26/19 05:43 Total Protein 7.6 g/dL (6.3-8.2) 06/26/19 05:43 Albumin 4.1 g/dL (3.9-5) 06/26/19 05:43 Albumin/Globulin Ratio 1.2 % 06/26/19 05:43 TSH 0.939 mlU/mL (0.270-4.200) 06/26/19 12:47 Free T4 0.69 ng/dL (0.76-1.46) L 06/26/19 12:47 Thyroxine (T4) 3.9 ug/dL (4.0-12.0) L 06/26/19 12:47 Urine Color Straw (Yellow) 06/26/19 Unknown Urine Turbidity Clear (Clear) 06/26/19 Unknown Urine pH 6.0 (5.0-7.0) 06/26/19 Unknown Ur Specific Wise 1.006 (1.003-1.030) 06/26/19 Unknown Urine Protein <15 mg/dl mg/dL (Negative) 06/26/19 Unknown Urine Glucose (UA) Neg mg/dL (Negative) 06/26/19 Unknown Urine Ketones Neg mg/dL (Negative) 06/26/19 Unknown Urine Blood Neg (Negative) 06/26/19 Unknown Urine Nitrite Neg (Negative) 06/26/19 Unknown Urine Bilirubin Neg (Negative) 06/26/19 Unknown Urine Urobilinogen < 2.0 mg/dL (<2.0) 06/26/19 Unknown Ur Leukocyte Esterase Neg (Negative) 06/26/19 Unknown Urine WBC (Auto) 1.0 /HPF (0.0-6.0) 06/26/19 Unknown Urine RBC (Auto) 1.0 /HPF (0.0-6.0) 06/26/19 Unknown Urine Bacteria (Auto) 1+ /HPF (Negative) 06/26/19 Unknown Urine Mucus Few /HPF 06/26/19 Unknown Urine Opiates Screen Presumptive negative 06/26/19 Unknown Urine Methadone Screen Presumptive negative 06/26/19 Unknown Ur Barbiturates Screen Presumptive negative 06/26/19 Unknown Ur Phencyclidine Scrn Presumptive negative 06/26/19 Unknown Ur Amphetamines Screen Presumptive negative 06/26/19 Unknown U Benzodiazepines Scrn Presumptive negative 06/26/19 Unknown Urine Cocaine Screen Presumptive negative 06/26/19 Unknown U Marijuana (THC) Screen Presumptive negative 06/26/19 Unknown Drugs of Abuse Note Disclamer 06/26/19 Unknown Influenza A (Rapid) Negative (Negative) 06/27/19 03:00 Influenza B (Rapid) Negative (Negative) 06/27/19 03:00 Active Medications - Current Medications Current Medications: Generic Name Dose Route Start Last Admin Trade Name Freq PRN Reason Stop Dose Admin Acetaminophen 650 mg 06/26/19 09:47 Tylenol PO Q4H PRN Pain MILD(1-3)/Fever >100.5/CALLEJAS Acetaminophen/Hydrocodone Bitart 1 each 06/26/19 10:39 [place] 7.5/325 PO Q6H PRN Pain, Moderate (4-6) Clonazepam 1 mg 06/26/19 23:00 06/26/19 23:28 Klonopin PO 1 mg QHS [facility] Administration Diltiazem HCl 60 mg 06/26/19 14:00 06/27/19 05:21 Cardizem PO 60 mg Q8HR [facility] Administration Enoxaparin Sodium 40 mg 06/26/19 22:00 06/26/19 21:31 Enoxaparin SUB-Q 40 mg QDAY@2200 [facility] Administration Ceftriaxone Sodium 1 gm in 50 mls @ 100 mls/hr 06/26/19 12:00 06/26/19 13:33 Rocephin/Ns 1 Gm/50 Ml IV 100 mls/hr Q24HR [facility] Administration Protocol Azithromycin 500 mg/ Sodium 250 mls @ 250 mls/hr 06/26/19 11:00 06/26/19 12:24 Chloride IV 250 mls/hr Q24HR [facility] Administration Protocol Sodium Chloride 1,000 mls @ 75 mls/hr 06/26/19 10:00 06/27/19 05:22 Nacl 0.9% 1000 Ml IV 75 mls/hr DIRECT [facility] Administration Miscellaneous Medication 1 tab 06/26/19 10:00 06/26/19 11:11 Methscopolamine [place] [Pamine] PO Not Given DAILY [facility] Ondansetron HCl 4 mg 06/26/19 09:47 Zofran IV Q8H PRN Nausea And Vomiting Sodium Chloride 10 ml 06/26/19 10:00 06/26/19 23:28 Sodium Chloride Flush Syringe 10 Ml IV 10 ml BID [facility] Administration Sodium Chloride 10 ml 06/26/19 09:47 Sodium Chloride Flush Syringe 10 Ml IV PRN PRN LINE FLUSH
[2019-06-27] MEDS ORDERED: POTASSIUM CHLORIDE ER 20 MEQ TAB PO ONE (08:22)
--- NOTE | 2019-06-27 09:50 | Progress Note ---
Assessment and Plan TTE reviewed with no significant abnormalities. Review of telemetry and ECGs since admission shows SR or sinus tachycardia, no AFib or AFlutter noted. Currently stable cardiac status. cont present cardiac regimen. nothing further to add from cardiac perspective at this time. will sign off. Recommend pt follow up in our office with Dr. Singh within 1-2 weeks of discharge ([phone]). The patient has been seen in conjunction with Dr. Singh who agrees with the assessment and plan of care. - Patient Problems (1) Sinus tachycardia Current Visit: Yes Status: Acute (2) Pneumonia Current Visit: Yes Status: Acute Qualifiers: Pneumonia type: due to unspecified organism Laterality: bilateral Lung location: unspecified part of lung Qualified Code(s): J18.9 - Pneumonia, unspecified organism (3) Fever Current Visit: Yes Status: Acute Qualifiers: Fever type: unspecified Qualified Code(s): R50.9 - Fever, unspecified (4) HTN (hypertension) Current Visit: Yes Status: Chronic Subjective Date of service: 06/27/19 Principal diagnosis: PNA Interval history: pt resting in bed, states she feels a little better today. tele reviewed- in SR, no arrhythmias noted overnight. Objective Last Vital Signs Temp 98.4 F 06/27/19 07:14 Pulse 95 H 06/27/19 04:28 Resp 18 06/27/19 07:14 BP 117/57 06/27/19 07:14 Pulse Ox 97 06/27/19 06:18 - Physical Examination General: No Apparent Distress HEENT: Positive: PERRL, Normocephaly, Mucus Membranes Moist Neck: Positive: neck supple, trachea midline Cardiac: Positive: Reg Rate and Rhythm, S1/S2 Lungs: Positive: Decreased Breath Sounds, Rhonchi, Oxygen Neuro: Positive: Grossly Intact Abdomen: Negative: Tender Skin: Negative: Rash Musculoskeletal: No Pain Extremities: Absent: edema - Labs and Meds CBC 06/27/19 Range/Units 05:38 WBC 14.3 H (4.5-11.0) K/mm3 RBC 3.13 L (3.65-5.03) M/mm3 Hgb 10.7 D (10.1-14.3) gm/dl Hct 31.5 D (30.3-42.9) % Plt Count 185 (140-440) K/mm3 Comprehensive Metabolic Panel 06/27/19 Range/Units 05:38 Sodium 139 (137-145) mmol/L Potassium 3.5 L (3.6-5.0) mmol/L Chloride 104.0 (98-107) mmol/L Carbon Dioxide 23 (22-30) mmol/L BUN 9 (7-17) mg/dL Creatinine 0.6 L (0.7-1.2) mg/dL Glucose 137 H (65-100) mg/dL Calcium 7.5 L D (8.4-10.2) mg/dL - Imaging and Cardiology EKG: report reviewed, image reviewed Echo: report reviewed - Telemetry EKG Rhythm: Sinus Rhythm - EKG Sinus rhythms and dysrhythmias: sinus tachycardia
[2019-06-27] MEDS: cefTRIAXone/NS 1 GM/50 ML 1 GM/50 ML BAG IV SCH (09:58)
--- NOTE | 2019-06-27 12:27 | Progress Note ---
Assessment and Plan Acute hypoxemic respiratory failure Multifocal infiltrates/presumed pneumonia Moderate protein calorie malnutrition Low grade fevers -ABG -Supplemental oxygen, wean for O2 sats>90% -Get CT chest to better characterize the multifocal infiltrates- the patient does not classic clinical signs of pneumonia(no leukocytosis, multifocal nature of the infiltrates). She has a history of oral cancer, need to r/o possible metastatic disease -Rapid flu swab -VTE prophylaxis -Optimize nutritional status- BMI 18.9 -Chronic home medications -Monitor hemodynamics closely -Monitor and trend fever curve Thank you for this consult. Will follow. Please do not hesitate to call with any questions or concerns Subjective Date of service: 06/27/19 Principal diagnosis: PNA Interval history: Patient is seen today for: Seen and examined at bedside; 24hour events reviewed; nursing and respiratory care staff consulted; no adverse overnight events reported to me; Objective Vital Signs - 12hr 06/27/19 06/27/19 06/27/19 04:28 06:18 07:14 Temperature 97.8 F 98.4 F Pulse Rate 95 H Respiratory 20 18 Rate Blood Pressure 163/54 117/57 O2 Sat by Pulse 97 97 Oximetry 06/27/19 10:20 Temperature Pulse Rate Respiratory Rate Blood Pressure O2 Sat by Pulse 92 Oximetry CBC and BMP: 06/27/19 05:38 06/27/19 05:38 Abnormal lab findings: Abnormal Labs 06/26/19 06/26/19 06/26/19 05:43 05:43 05:43 WBC RBC MCV 100 H MCH 35 H MCHC 35 H Seg Neuts % (Manual) 87.0 H Lymphocytes % (Manual) 6.0 L Seg Neutrophils # Man 9.0 H Lymphocytes # (Manual) 0.6 L Potassium Chloride 95.9 L Creatinine Glucose 153 H Lactic Acid 6.00 H* Calcium Magnesium AST 100 H Free T4 Thyroxine (T4) 06/26/19 06/26/19 06/26/19 05:43 12:47 12:47 WBC RBC MCV MCH MCHC Seg Neuts % (Manual) Lymphocytes % (Manual) Seg Neutrophils # Man Lymphocytes # (Manual) Potassium Chloride Creatinine Glucose Lactic Acid 2.20 H* Calcium Magnesium 1.10 L AST Free T4 0.69 L Thyroxine (T4) 06/26/19 06/27/19 06/27/19 12:47 05:38 05:38 WBC 14.3 H RBC 3.13 L MCV 101 H MCH 34 H MCHC Seg Neuts % (Manual) 96.0 H Lymphocytes % (Manual) 3.0 L Seg Neutrophils # Man 13.7 H Lymphocytes # (Manual) 0.4 L Potassium 3.5 L Chloride Creatinine 0.6 L Glucose 137 H Lactic Acid Calcium 7.5 L D Magnesium AST Free T4 Thyroxine (T4) 3.9 L
--- NOTE | 2019-06-27 12:31 | Cat Scan Report ---
CT CHEST WITHOUT CONTRAST INDICATION / CLINICAL INFORMATION: Multifocal pneumonia. TECHNIQUE: Axial CT images were obtained through the chest without contrast. Sagittal and coronal reformatted im ages. All CT scans at this location are performed using CT dose reduction for ALARA by means of autom ated exposure control. COMPARISON: None available. FINDINGS: HEART: No significant abnormality. THORACIC AORTA: No significant abnormality. MEDIASTINUM and CORY: No significant abnormality. LUNGS: Moderate patchy airspace disease is identified throughout both lungs. The upper lobes and left lower lobe are most affected. There is no obvious mass given the infiltrate. PLEURA: No significant pleural effusion. No pneumothorax. SKELETAL SYSTEM: No significant abnormality. UPPER ABDOMEN: No significant abnormality. ADDITIONAL FINDINGS: None. IMPRESSION: Bilateral pneumonic infiltrates as described. Signer Name: Piyush Leal Jr, MD Signed: 06/27/2019 12:27 PM Workstation Name: [id number]
[2019-06-27] MEDS: AZITHROMYCIN 500 MG in SODIUM CHLORIDE 0.9% 250ML 250 ML IV SCH (12:53)
[2019-06-27] MEDS ORDERED: ALBUTEROL 2.5 MG/3 ML NEBU IH PRN (14:12)
[2019-06-27] MEDS: methylPREDNISolone Sod Succinate 40 MG/1 ML INJ IV SCH (15:02)
[2019-06-27] MEDS: IPRATROPIUM/ALBUTEROL SULFATE 3 ML AMPUL.NEB IH SCH ×2 (15:23→21:50)
[2019-06-27] MEDS: BUDESONIDE 0.5 MG/2 ML NEBU IH SCH (21:51)
[2019-06-27] MEDS: ARFORMOTEROL 15 MCG/2 ML NEBU IH SCH (21:52)
[2019-06-27] MEDS: clonazePAM 0.5 MG TAB PO SCH (22:33)
[2019-06-27] MEDS: dilTIAZem 60 MG TAB PO SCH (22:34)
[2019-06-27] MEDS: ENOXAPARIN 40 MG/0.4 ML INJ SUB-Q SCH (22:35)
[2019-06-28] MEDS: IPRATROPIUM/ALBUTEROL SULFATE 3 ML AMPUL.NEB IH SCH ×4 (03:45→20:34)
[2019-06-28] MEDS: methylPREDNISolone Sod Succinate 40 MG/1 ML INJ IV SCH ×2 (04:26→15:27)
[2019-06-28] MEDS: dilTIAZem 60 MG TAB PO SCH ×3 (05:57→21:36)
[2019-06-28] MEDS: BUDESONIDE 0.5 MG/2 ML NEBU IH SCH ×2 (08:03→20:34)
[2019-06-28] MEDS: ARFORMOTEROL 15 MCG/2 ML NEBU IH SCH ×2 (08:03→20:34)
[2019-06-28] MEDS: SODIUM CHLORIDE 0.9% 1000 ML 1,000 ML IV SCH (09:04)
[2019-06-28] MEDS: AZITHROMYCIN 500 MG in SODIUM CHLORIDE 0.9% 250ML 250 ML IV SCH (09:05)
[2019-06-28] MEDS: cefTRIAXone/NS 1 GM/50 ML 1 GM/50 ML BAG IV SCH (10:15)
--- NOTE | 2019-06-28 13:39 | Progress Note ---
Assessment and Plan Assessment and plan: 68-year-old woman who was in the hospital with cough sob and palpitations. Multifocal pneumonia/sepsis Likely gram-positive bacteria Empiric antibiotics, sputum culture Copd exacerbation; steroids, nebs, pulmonology consults, aggressive chest PT -She reports history of smoking, has now quit for years afib ruled out, has Sinus tachy due to sepsis Continue treatment for sepsis, cardiology input appreciated Hypokalemia Repleted Hypomagnesemia Repleted Hypothyroidism This is a new diagnosis for the patient, will hold off on giving Synthroid at this time as patient is tachycardic with RVR. -Plan to start her on low-dose Synthroid at time of discharge Acute hypoxic respiratory failure Continue supplemental oxygen, wean as tolerated, wean down to nasal cannula today. Will need oxygen evaluation prior to discharge, planned for Sunday.. Hypertension Optimize meds. DVT prophylaxis; lovenox History Interval history: Review of systems Constitutional: No fevers, no malaise, no joint pains CVS: No chest pain, no orthopnea, no pedal edema GI: No abdominal pain, no diarrhea, no vomiting, no constipation Respiratory: , Interval improvement in shortness of breath and cough. Hospitalist Physical - Physical exam Narrative exam: general.: Mild distress HEENT: Moist mucous membranes, extraocular muscles intact, no lymphadenopathy Neck: supple Cardiac: S1-S2 heard Lungs: Rhonchorous breath sounds, faint expiratory wheeze, decreased air entry Abdomen: soft , nontender, nondistended, bowel sounds positive Extremities: no edema clubbing or cyanosis Skin: no rash or lesions Neurologic: no gross focal deficits Psych: calm, and cooperative - Constitutional Vitals: Temp Pulse Resp BP Pulse Ox 98.5 F 106 H 24 142/47 95 06/28/19 12:53 06/28/19 13:36 06/28/19 12:53 06/28/19 12:53 06/28/19 12:53 General appearance: Present: mild distress, well-nourished Results - Labs CBC & Chem 7: 06/27/19 05:38 06/27/19 05:38 Labs: Laboratory Last Values WBC 14.3 K/mm3 (4.5-11.0) H 06/27/19 05:38 RBC 3.13 M/mm3 (3.65-5.03) L 06/27/19 05:38 Hgb 10.7 gm/dl (10.1-14.3) D 06/27/19 05:38 Hct 31.5 % (30.3-42.9) D 06/27/19 05:38 MCV 101 fl (79-97) H 06/27/19 05:38 MCH 34 pg (28-32) H 06/27/19 05:38 MCHC 34 % (30-34) 06/27/19 05:38 RDW 14.7 % (13.2-15.2) 06/27/19 05:38 Plt Count 185 K/mm3 (140-440) 06/27/19 05:38 Add Manual Diff Complete 06/27/19 05:38 Total Counted 100 06/27/19 05:38 Seg Neutrophils % Mechanic Welder 06/27/19 05:38 Seg Neuts % (Manual) 96.0 % (40.0-70.0) H 06/27/19 05:38 Band Neutrophils % 0 % 06/27/19 05:38 Lymphocytes % (Manual) 3.0 % (13.4-35.0) L 06/27/19 05:38 Reactive Lymphs % (Man) 0 % 06/27/19 05:38 Monocytes % (Manual) 0 % (0.0-7.3) 06/27/19 05:38 Eosinophils % (Manual) 0 % (0.0-4.3) 06/27/19 05:38 Basophils % (Manual) 0 % (0.0-1.8) 06/27/19 05:38 Metamyelocytes % 1.0 % 06/27/19 05:38 Myelocytes % 0 % 06/27/19 05:38 Promyelocytes % 0 % 06/27/19 05:38 Blast Cells % 0 % 06/27/19 05:38 Nucleated RBC % Not Reportable 06/27/19 05:38 Seg Neutrophils # Man 13.7 K/mm3 (1.8-7.7) H 06/27/19 05:38 Band Neutrophils # 0.0 K/mm3 06/27/19 05:38 Lymphocytes # (Manual) 0.4 K/mm3 (1.2-5.4) L 06/27/19 05:38 Abs React Lymphs (Man) 0.0 K/mm3 06/27/19 05:38 Monocytes # (Manual) 0.0 K/mm3 (0.0-0.8) 06/27/19 05:38 Eosinophils # (Manual) 0.0 K/mm3 (0.0-0.4) 06/27/19 05:38 Basophils # (Manual) 0.0 K/mm3 (0.0-0.1) 06/27/19 05:38 Metamyelocytes # 0.1 K/mm3 06/27/19 05:38 Myelocytes # 0.0 K/mm3 06/27/19 05:38 Promyelocytes # 0.0 K/mm3 06/27/19 05:38 Blast Cells # 0.0 K/mm3 06/27/19 05:38 WBC Morphology Not Reportable 06/27/19 05:38 Hypersegmented Neuts Not Reportable 06/27/19 05:38 Hyposegmented Neuts Not Reportable 06/27/19 05:38 Hypogranular Neuts Not Reportable 06/27/19 05:38 Smudge Cells Not Reportable 06/27/19 05:38 Toxic Granulation Not Reportable 06/27/19 05:38 Toxic Vacuolation Not Reportable 06/27/19 05:38 Dohle Bodies Not Reportable 06/27/19 05:38 Pelger-Huet Anomaly Not Reportable 06/27/19 05:38 Ty Rods Not Reportable 06/27/19 05:38 Platelet Estimate Consistent w auto 06/27/19 05:38 Clumped Platelets Not Reportable 06/27/19 05:38 Plt Clumps, EDTA Not Reportable 06/27/19 05:38 Large Platelets Not Reportable 06/27/19 05:38 Giant Platelets Not Reportable 06/27/19 05:38 Platelet Satelliting Not Reportable 06/27/19 05:38 Plt Morphology Comment Not Reportable 06/27/19 05:38 RBC Morphology Normal 06/27/19 05:38 Dimorphic RBCs Not Reportable 06/27/19 05:38 Polychromasia Not Reportable 06/27/19 05:38 Hypochromasia Not Reportable 06/27/19 05:38 Poikilocytosis Not Reportable 06/27/19 05:38 Anisocytosis Not Reportable 06/27/19 05:38 Microcytosis Not Reportable 06/27/19 05:38 Macrocytosis Not Reportable 06/27/19 05:38 Spherocytes Not Reportable 06/27/19 05:38 Pappenheimer Bodies Not Reportable 06/27/19 05:38 Sickle Cells Not Reportable 06/27/19 05:38 Target Cells Not Reportable 06/27/19 05:38 Tear Drop Cells Not Reportable 06/27/19 05:38 Ovalocytes Not Reportable 06/27/19 05:38 Helmet Cells Not Reportable 06/27/19 05:38 Sidhu-[place] Bodies Not Reportable 06/27/19 05:38 [place] Rings Not Reportable 06/27/19 05:38 [place] Cells Not Reportable 06/27/19 05:38 Bite Cells Not Reportable 06/27/19 05:38 Crenated Cell Not Reportable 06/27/19 05:38 Elliptocytes Not Reportable 06/27/19 05:38 Acanthocytes (Spur) Not Reportable 06/27/19 05:38 Rouleaux Not Reportable 06/27/19 05:38 Hemoglobin C Crystals Not Reportable 06/27/19 05:38 Schistocytes Not Reportable 06/27/19 05:38 Malaria parasites Not Reportable 06/27/19 05:38 Maxwell Bodies Not Reportable 06/27/19 05:38 Hem Pathologist Commnt No 06/27/19 05:38 Sodium 139 mmol/L (137-145) 06/27/19 05:38 Potassium 3.5 mmol/L (3.6-5.0) L 06/27/19 05:38 Chloride 104.0 mmol/L (98-107) 06/27/19 05:38 Carbon Dioxide 23 mmol/L (22-30) 06/27/19 05:38 Anion Gap 16 mmol/L 06/27/19 05:38 BUN 9 mg/dL (7-17) 06/27/19 05:38 Creatinine 0.6 mg/dL (0.7-1.2) L 06/27/19 05:38 Estimated GFR > 60 ml/min 06/27/19 05:38 BUN/Creatinine Ratio 15 % 06/27/19 05:38 Glucose 137 mg/dL (65-100) H 06/27/19 05:38 Lactic Acid 2.20 mmol/L (0.7-2.0) H* 06/26/19 12:47 Calcium 7.5 mg/dL (8.4-10.2) L D 06/27/19 05:38 Magnesium 1.90 mg/dL (1.7-2.3) 06/27/19 05:38 Total Bilirubin 0.40 mg/dL (0.1-1.2) 06/26/19 05:43 AST 100 units/L (5-40) H 06/26/19 05:43 ALT 49 units/L (7-56) 06/26/19 05:43 Alkaline Phosphatase 54 units/L (35-129) 06/26/19 05:43 Troponin T < 0.010 ng/mL (0.00-0.029) 06/26/19 05:43 Total Protein 7.6 g/dL (6.3-8.2) 06/26/19 05:43 Albumin 4.1 g/dL (3.9-5) 06/26/19 05:43 Albumin/Globulin Ratio 1.2 % 06/26/19 05:43 TSH 0.939 mlU/mL (0.270-4.200) 06/26/19 12:47 Free T4 0.69 ng/dL (0.76-1.46) L 06/26/19 12:47 Thyroxine (T4) 3.9 ug/dL (4.0-12.0) L 06/26/19 12:47 Urine Color Straw (Yellow) 06/26/19 Unknown Urine Turbidity Clear (Clear) 06/26/19 Unknown Urine pH 6.0 (5.0-7.0) 06/26/19 Unknown Ur Specific [place]iley 1.006 (1.003-1.030) 06/26/19 Unknown Urine Protein <15 mg/dl mg/dL (Negative) 06/26/19 Unknown Urine Glucose (UA) Neg mg/dL (Negative) 06/26/19 Unknown Urine Ketones Neg mg/dL (Negative) 06/26/19 Unknown Urine Blood Neg (Negative) 06/26/19 Unknown Urine Nitrite Neg (Negative) 06/26/19 Unknown Urine Bilirubin Neg (Negative) 06/26/19 Unknown Urine Urobilinogen < 2.0 mg/dL (<2.0) 06/26/19 Unknown Ur Leukocyte Esterase Neg (Negative) 06/26/19 Unknown Urine WBC (Auto) 1.0 /HPF (0.0-6.0) 06/26/19 Unknown Urine RBC (Auto) 1.0 /HPF (0.0-6.0) 06/26/19 Unknown Urine Bacteria (Auto) 1+ /HPF (Negative) 06/26/19 Unknown Urine Mucus Few /HPF 06/26/19 Unknown Urine Opiates Screen Presumptive negative 06/26/19 Unknown Urine Methadone Screen Presumptive negative 06/26/19 Unknown Ur Barbiturates Screen Presumptive negative 06/26/19 Unknown Ur Phencyclidine Scrn Presumptive negative 06/26/19 Unknown Ur Amphetamines Screen Presumptive negative 06/26/19 Unknown U Benzodiazepines Scrn Presumptive negative 06/26/19 Unknown Urine Cocaine Screen Presumptive negative 06/26/19 Unknown U Marijuana (THC) Screen Presumptive negative 06/26/19 Unknown Drugs of Abuse Note Disclamer 06/26/19 Unknown Influenza A (Rapid) Negative (Negative) 06/27/19 03:00 Influenza B (Rapid) Negative (Negative) 06/27/19 03:00 Active Medications - Current Medications Current Medications: Generic Name Dose Route Start Last Admin Trade Name Freq PRN Reason Stop Dose Admin Acetaminophen 650 mg 06/26/19 09:47 Tylenol PO Q4H PRN Pain MILD(1-3)/Fever >100.5/CALLEJAS Acetaminophen/Hydrocodone Bitart 1 each 06/26/19 10:39 [place] 7.5/325 PO Q6H PRN Pain, Moderate (4-6) Albuterol 2.5 mg 06/27/19 14:12 Proventil IH Q4HRT PRN Shortness Of Breath Albuterol/Ipratropium 1 ampul 06/27/19 16:00 06/28/19 13:12 Duoneb *Not For Prn Use* IH 1 ampul Q6HRT PEPE Administration Arformoterol Tartrate 15 mcg 06/27/19 20:00 06/28/19 08:03 Brovana Nebu IH 15 mcg Q12HRT PEPE Administration Budesonide 0.5 mg 06/27/19 20:00 06/28/19 08:03 Pulmicort IH 0.5 mg Q12HRT PEPE Administration Clonazepam 1 mg 06/26/19 23:00 06/27/19 22:33 Klonopin PO 1 mg QHS PEPE Administration Diltiazem HCl 60 mg 06/27/19 22:00 06/28/19 13:36 Cardizem PO 60 mg Q8HR PEPE Administration Enoxaparin Sodium 40 mg 06/26/19 22:00 06/27/19 22:35 Enoxaparin SUB-Q 40 mg QDAY@2200 PEPE Administration Ceftriaxone Sodium 1 gm in 50 mls @ 100 mls/hr 06/26/19 12:00 06/28/19 10:15 Rocephin/Ns 1 Gm/50 Ml IV 100 mls/hr Q24HR PEPE Administration Protocol Azithromycin 500 mg/ Sodium 250 mls @ 250 mls/hr 06/26/19 11:00 06/28/19 09:05 Chloride IV 250 mls/hr Q24HR PEPE Administration Protocol Sodium Chloride 1,000 mls @ 42 mls/hr 06/26/19 10:00 06/28/19 09:04 Nacl 0.9% 1000 Ml IV 75 mls/hr DIRECT PEPE Administration Methylprednisolone Sodium Succinate 40 mg 06/27/19 16:00 06/28/19 04:26 Solu-Medrol IV 40 mg Q12H PEPE Administration Miscellaneous Medication 1 tab 06/26/19 10:00 06/26/19 11:11 Methscopolamine Ralph [Pamine] PO Not Given DAILY PEPE Ondansetron HCl 4 mg 06/26/19 09:47 Zofran IV Q8H PRN Nausea And Vomiting Sodium Chloride 10 ml 06/26/19 10:00 06/28/19 09:08 Sodium Chloride Flush Syringe 10 Ml IV 10 ml BID PEPE Administration Sodium Chloride 10 ml 06/26/19 09:47 06/28/19 04:28 Sodium Chloride Flush Syringe 10 Ml IV 10 ml PRN PRN Administration LINE FLUSH
--- NOTE | 2019-06-28 14:05 | Progress Note ---
Assessment and Plan Acute hypoxemic respiratory failure Multifocal infiltrates/presumed pneumonia Moderate protein calorie malnutrition Low grade fevers (CT chest consistent with element of diffuse proliferative lung disease) - get ABG and address - get KADY & VENKATA levels - continue systemic steroids but taper - continue supplemental oxygen, wean for O2 sats > 90% - get [employer] evaluation for aspiration (? Aspiration pneumonia element) - treat empirically for CAP element - outpatient PFT's - may ultimately need bronchoscopy vs lung biopsy - GI & VTE prophylaxis - Optimize nutritional status- BMI 18.9 - continue chronic home medications - Monitor hemodynamics closely - Monitor and trend fever curve - continue other care per attending ... re-evaluate in am & prn Subjective Date of service: 06/28/19 Principal diagnosis: Ac hypoxemic resp failure; Bilateral pneumonia; DPLD / Pulm Fibrosis Interval history: Patient is seen today for: Acute hypoxemic respiratory failure; Multifocal infiltrates/presumed pneumonia; Moderate protein calorie malnutrition; Low grade fevers Seen and examined at bedside; 24hour events reviewed; nursing and respiratory care staff consulted; no adverse overnight events reported to me; resting peacefully in bed; denies acute chest pains; No hemoptysis; admits to h/o coughing with meals / possible aspiration; denies h/o chest radiation or prior pulmonary evaluation Objective Vital Signs - 12hr 06/28/19 06/28/19 06/28/19 03:48 04:09 05:57 Temperature Pulse Rate 103 H 96 H Pulse Rate [ 20 L Anterior Bilateral Throughout] Pulse Rate [ Right Radial] Respiratory Rate Respiratory 22 Rate [Anterior Bilateral Throughout] Blood Pressure 142/67 O2 Sat by Pulse 98 Oximetry 06/28/19 06/28/19 06/28/19 07:48 10:00 12:53 Temperature 98.2 F 98.5 F Pulse Rate 94 H 106 H Pulse Rate [ Anterior Bilateral Throughout] Pulse Rate [ 94 H Right Radial] Respiratory 20 20 24 Rate Respiratory Rate [Anterior Bilateral Throughout] Blood Pressure 112/53 142/47 O2 Sat by Pulse 95 95 95 Oximetry 06/28/19 13:36 Temperature Pulse Rate 106 H Pulse Rate [ Anterior Bilateral Throughout] Pulse Rate [ Right Radial] Respiratory Rate Respiratory Rate [Anterior Bilateral Throughout] Blood Pressure O2 Sat by Pulse Oximetry Constitutional: no acute distress, other (eldertly looking thin AAF, with mildly increased respiratory effort at rest) Eyes: non-icteric ENT: oropharynx moist, other (s/p oral surgery) Neck: supple, no lymphadenopathy, no JVD Effort: mildly labored Ascultation: Bilateral: diminished breath sounds, rhonchi Percussion: Bilateral: not dull Cardiovascular: regular rate and rhythm Gastrointestinal: normoactive bowel sounds, soft, non-tender, non-distended Integumentary: normal Extremities: no cyanosis, no edema, pulses normal, no ischemia or petechiae Neurologic: normal mental status, non-focal exam, pupils equal and round, CN II- XII normal Psychiatric: mood appropriate, affect normal CBC and BMP: 06/27/19 05:38 06/27/19 05:38 Abnormal lab findings: Abnormal Labs 06/26/19 06/26/19 06/26/19 05:43 05:43 05:43 WBC RBC MCV 100 H MCH 35 H MCHC 35 H Seg Neuts % (Manual) 87.0 H Lymphocytes % (Manual) 6.0 L Seg Neutrophils # Man 9.0 H Lymphocytes # (Manual) 0.6 L Potassium Chloride 95.9 L Creatinine Glucose 153 H Lactic Acid 6.00 H* Calcium Magnesium AST 100 H Free T4 Thyroxine (T4) 06/26/19 06/26/19 06/26/19 05:43 12:47 12:47 WBC RBC MCV MCH MCHC Seg Neuts % (Manual) Lymphocytes % (Manual) Seg Neutrophils # Man Lymphocytes # (Manual) Potassium Chloride Creatinine Glucose Lactic Acid 2.20 H* Calcium Magnesium 1.10 L AST Free T4 0.69 L Thyroxine (T4) 06/26/19 06/27/19 06/27/19 12:47 05:38 05:38 WBC 14.3 H RBC 3.13 L MCV 101 H MCH 34 H MCHC Seg Neuts % (Manual) 96.0 H Lymphocytes % (Manual) 3.0 L Seg Neutrophils # Man 13.7 H Lymphocytes # (Manual) 0.4 L Potassium 3.5 L Chloride Creatinine 0.6 L Glucose 137 H Lactic Acid Calcium 7.5 L D Magnesium AST Free T4 Thyroxine (T4) 3.[address] scan - chest: image reviewed (chronic looking interstitial thickening with upper lobe emphysematous pattern and NSIP pattern in bases)
[2019-06-28 18:08] LABS: ABG Base Excess -1.1 mmol/L (-2.0-3.0); ABG HCO3 24.1 mmol/L (20.0-26.0); ABG Methemoglobin 0.6 % (0.0-1.5); ABG Oxygen Saturation 88.5 % (95.0-99.0); ABG PCO2 41.8 mm Hg; ABG PH 7.378 pH Units (7.350-7.450); ABG PO2 55.7 mm Hg (80.0-90.0)
[2019-06-28] MEDS: clonazePAM 0.5 MG TAB PO SCH (21:36)
[2019-06-28] MEDS: ENOXAPARIN 40 MG/0.4 ML INJ SUB-Q SCH (21:37)
[2019-06-29] MEDS: IPRATROPIUM/ALBUTEROL SULFATE 3 ML AMPUL.NEB IH SCH ×4 (02:36→20:39)
[2019-06-29] MEDS: dilTIAZem 60 MG TAB PO SCH ×3 (05:00→21:54)
[2019-06-29] MEDS: methylPREDNISolone Sod Succinate 40 MG/1 ML INJ IV SCH (05:00)
[2019-06-29] MEDS: SODIUM CHLORIDE 0.9% 1000 ML 1,000 ML IV SCH (07:09)
[2019-06-29] MEDS ORDERED: methylPREDNISolone Sod Succinate 40 MG/1 ML INJ IV SCH (09:07)
[2019-06-29] MEDS: ARFORMOTEROL 15 MCG/2 ML NEBU IH SCH ×2 (09:37→20:39)
[2019-06-29] MEDS: BUDESONIDE 0.5 MG/2 ML NEBU IH SCH ×2 (09:37→20:39)
[2019-06-29] MEDS: cefTRIAXone/NS 1 GM/50 ML 1 GM/50 ML BAG IV SCH (09:42)
[2019-06-29] MEDS ORDERED: methylPREDNISolone Sod Succinate 125 MG/2 ML INJ IV SCH (10:00)
[2019-06-29] MEDS: AZITHROMYCIN 500 MG in SODIUM CHLORIDE 0.9% 250ML 250 ML IV SCH (10:35)
--- NOTE | 2019-06-29 13:33 | Progress Note ---
Assessment and Plan Assessment and plan: 68-year-old woman who was in the hospital with cough sob and palpitations. Acute hypoxic respiratory failure Continue high flow oxygen CT chest consistent with diffuse proliferative disease, fup alpha-1 antitrypsin and VENKATA levels. For possible bronc? Given history of oral cancer irrigation specialist would like to rule out mets Flu negative Multifocal pneumonia/sepsis? Continue empiric antibiotics. Per irrigation specialist presentation is not consistent with pneumonia. ID consult, may benefit from bronc. Copd exacerbation? May have obstructive component to lung disease, continue empiric steroids and nebs. afib ruled out, has Sinus tachy due to sepsis Continue treatment for sepsis, cardiology input appreciated Hypokalemia Repleted Hypomagnesemia Repleted Hypothyroidism, new onset low-dose Synthroid at time of discharge Hypertension Optimize meds. Mild to moderate malnutrition; dietitian consult, continue Ensure shakes DVT prophylaxis; lovenox History Interval history: Review of systems Constitutional: No fevers, no malaise, no joint pains CVS: No chest pain, no orthopnea, no pedal edema GI: No abdominal pain, no diarrhea, no vomiting, no constipation Respiratory: , Interval improvement in shortness of breath and cough. Hospitalist Physical - Physical exam Narrative exam: general.: Mild distress, cachexia HEENT: Moist mucous membranes, extraocular muscles intact, edentulous Neck: supple Cardiac: S1-S2 heard Lungs: Rhonchorous breath sounds, , decreased air entry Abdomen: soft , nontender, nondistended, bowel sounds positive Extremities: no edema clubbing or cyanosis Skin: no rash or lesions Neurologic: no gross focal deficits Psych: calm, and cooperative - Constitutional Vitals: Temp Pulse Resp BP Pulse Ox 98.8 F 90 22 127/55 95 06/29/19 07:27 06/29/19 10:00 06/29/19 10:00 06/29/19 07:27 06/29/19 10:00 General appearance: Present: mild distress, well-nourished Results - Labs CBC & Chem 7: 06/27/19 05:38 06/27/19 05:38 Labs: Laboratory Last Values WBC 14.3 K/mm3 (4.5-11.0) H 06/27/19 05:38 RBC 3.13 M/mm3 (3.65-5.03) L 06/27/19 05:38 Hgb 10.7 gm/dl (10.1-14.3) D 06/27/19 05:38 Hct 31.5 % (30.3-42.9) D 06/27/19 05:38 MCV 101 fl (79-97) H 06/27/19 05:38 MCH 34 pg (28-32) H 06/27/19 05:38 MCHC 34 % (30-34) 06/27/19 05:38 RDW 14.7 % (13.2-15.2) 06/27/19 05:38 Plt Count 185 K/mm3 (140-440) 06/27/19 05:38 Add Manual Diff Complete 06/27/19 05:38 Total Counted 100 06/27/19 05:38 Seg Neutrophils % Manager Icu 06/27/19 05:38 Seg Neuts % (Manual) 96.0 % (40.0-70.0) H 06/27/19 05:38 Band Neutrophils % 0 % 06/27/19 05:38 Lymphocytes % (Manual) 3.0 % (13.4-35.0) L 06/27/19 05:38 Reactive Lymphs % (Man) 0 % 06/27/19 05:38 Monocytes % (Manual) 0 % (0.0-7.3) 06/27/19 05:38 Eosinophils % (Manual) 0 % (0.0-4.3) 06/27/19 05:38 Basophils % (Manual) 0 % (0.0-1.8) 06/27/19 05:38 Metamyelocytes % 1.0 % 06/27/19 05:38 Myelocytes % 0 % 06/27/19 05:38 Promyelocytes % 0 % 06/27/19 05:38 Blast Cells % 0 % 06/27/19 05:38 Nucleated RBC % Not Reportable 06/27/19 05:38 Seg Neutrophils # Man 13.7 K/mm3 (1.8-7.7) H 06/27/19 05:38 Band Neutrophils # 0.0 K/mm3 06/27/19 05:38 Lymphocytes # (Manual) 0.4 K/mm3 (1.2-5.4) L 06/27/19 05:38 Abs React Lymphs (Man) 0.0 K/mm3 06/27/19 05:38 Monocytes # (Manual) 0.0 K/mm3 (0.0-0.8) 06/27/19 05:38 Eosinophils # (Manual) 0.0 K/mm3 (0.0-0.4) 06/27/19 05:38 Basophils # (Manual) 0.0 K/mm3 (0.0-0.1) 06/27/19 05:38 Metamyelocytes # 0.1 K/mm3 06/27/19 05:38 Myelocytes # 0.0 K/mm3 06/27/19 05:38 Promyelocytes # 0.0 K/mm3 06/27/19 05:38 Blast Cells # 0.0 K/mm3 06/27/19 05:38 WBC Morphology Not Reportable 06/27/19 05:38 Hypersegmented Neuts Not Reportable 06/27/19 05:38 Hyposegmented Neuts Not Reportable 06/27/19 05:38 Hypogranular Neuts Not Reportable 06/27/19 05:38 Smudge Cells Not Reportable 06/27/19 05:38 Toxic Granulation Not Reportable 06/27/19 05:38 Toxic Vacuolation Not Reportable 06/27/19 05:38 Dohle Bodies Not Reportable 06/27/19 05:38 Pelger-Huet Anomaly Not Reportable 06/27/19 05:38 Ty Rods Not Reportable 06/27/19 05:38 Platelet Estimate Consistent w auto 06/27/19 05:38 Clumped Platelets Not Reportable 06/27/19 05:38 Plt Clumps, EDTA Not Reportable 06/27/19 05:38 Large Platelets Not Reportable 06/27/19 05:38 Giant Platelets Not Reportable 06/27/19 05:38 Platelet Satelliting Not Reportable 06/27/19 05:38 Plt Morphology Comment Not Reportable 06/27/19 05:38 RBC Morphology Normal 06/27/19 05:38 Dimorphic RBCs Not Reportable 06/27/19 05:38 Polychromasia Not Reportable 06/27/19 05:38 Hypochromasia Not Reportable 06/27/19 05:38 Poikilocytosis Not Reportable 06/27/19 05:38 Anisocytosis Not Reportable 06/27/19 05:38 Microcytosis Not Reportable 06/27/19 05:38 Macrocytosis Not Reportable 06/27/19 05:38 Spherocytes Not Reportable 06/27/19 05:38 Pappenheimer Bodies Not Reportable 06/27/19 05:38 Sickle Cells Not Reportable 06/27/19 05:38 Target Cells Not Reportable 06/27/19 05:38 Tear Drop Cells Not Reportable 06/27/19 05:38 Ovalocytes Not Reportable 06/27/19 05:38 Helmet Cells Not Reportable 06/27/19 05:38 Sidhu-Pinckney Bodies Not Reportable 06/27/19 05:38 [place] Rings Not Reportable 06/27/19 05:38 [place] Cells Not Reportable 06/27/19 05:38 Bite Cells Not Reportable 06/27/19 05:38 Crenated Cell Not Reportable 06/27/19 05:38 Elliptocytes Not Reportable 06/27/19 05:38 Acanthocytes (Spur) Not Reportable 06/27/19 05:38 Rouleaux Not Reportable 06/27/19 05:38 Hemoglobin C Crystals Not Reportable 06/27/19 05:38 Schistocytes Not Reportable 06/27/19 05:38 Malaria parasites Not Reportable 06/27/19 05:38 [place] Bodies Not Reportable 06/27/19 05:38 Hem Pathologist Commnt No 06/27/19 05:38 ABG pH 7.378 pH Units (7.350-7.450) 06/28/19 17:50 ABG pCO2 41.8 mm Hg 06/28/19 17:50 ABG pO2 55.7 mm Hg (80.0-90.0) L 06/28/19 17:50 ABG HCO3 24.1 mmol/L (20.0-26.0) 06/28/19 17:50 ABG O2 Saturation 88.5 % (95.0-99.0) L 06/28/19 17:50 ABG O2 Content 13.6 (0.0-44) 06/28/19 17:50 ABG Base Excess -1.1 mmol/L (-2.0-3.0) 06/28/19 17:50 ABG Hemoglobin 11.1 gm/dl (12.0-16.0) L 06/28/19 17:50 ABG Carboxyhemoglobin 1.3 % (0.0-5.0) 06/28/19 17:50 ABG Methemoglobin 0.6 % (0.0-1.5) 06/28/19 17:50 Oxyhemoglobin 86.8 % (95.0-99.0) L 06/28/19 17:50 FiO2 50 % 06/28/19 17:50 Sodium 139 mmol/L (137-145) 06/27/19 05:38 Potassium 3.5 mmol/L (3.6-5.0) L 06/27/19 05:38 Chloride 104.0 mmol/L (98-107) 06/27/19 05:38 Carbon Dioxide 23 mmol/L (22-30) 06/27/19 05:38 Anion Gap 16 mmol/L 06/27/19 05:38 BUN 9 mg/dL (7-17) 06/27/19 05:38 Creatinine 0.6 mg/dL (0.7-1.2) L 06/27/19 05:38 Estimated GFR > 60 ml/min 06/27/19 05:38 BUN/Creatinine Ratio 15 % 06/27/19 05:38 Glucose 137 mg/dL (65-100) H 06/27/19 05:38 Lactic Acid 2.20 mmol/L (0.7-2.0) H* 06/26/19 12:47 Calcium 7.5 mg/dL (8.4-10.2) L D 06/27/19 05:38 Magnesium 1.90 mg/dL (1.7-2.3) 06/27/19 05:38 Total Bilirubin 0.40 mg/dL (0.1-1.2) 06/26/19 05:43 AST 100 units/L (5-40) H 06/26/19 05:43 ALT 49 units/L (7-56) 06/26/19 05:43 Alkaline Phosphatase 54 units/L (35-129) 06/26/19 05:43 Troponin T < 0.010 ng/mL (0.00-0.029) 06/26/19 05:43 Total Protein 7.6 g/dL (6.3-8.2) 06/26/19 05:43 Albumin 4.1 g/dL (3.9-5) 06/26/19 05:43 Albumin/Globulin Ratio 1.2 % 06/26/19 05:43 TSH 0.939 mlU/mL (0.270-4.200) 06/26/19 12:47 Free T4 0.69 ng/dL (0.76-1.46) L 06/26/19 12:47 Thyroxine (T4) 3.9 ug/dL (4.0-12.0) L 06/26/19 12:47 Urine Color Straw (Yellow) 06/26/19 Unknown Urine Turbidity Clear (Clear) 06/26/19 Unknown Urine pH 6.0 (5.0-7.0) 06/26/19 Unknown Ur Specific [place] 1.006 (1.003-1.030) 06/26/19 Unknown Urine Protein <15 mg/dl mg/dL (Negative) 06/26/19 Unknown Urine Glucose (UA) Neg mg/dL (Negative) 06/26/19 Unknown Urine Ketones Neg mg/dL (Negative) 06/26/19 Unknown Urine Blood Neg (Negative) 06/26/19 Unknown Urine Nitrite Neg (Negative) 06/26/19 Unknown Urine Bilirubin Neg (Negative) 06/26/19 Unknown Urine Urobilinogen < 2.0 mg/dL (<2.0) 06/26/19 Unknown Ur Leukocyte Esterase Neg (Negative) 06/26/19 Unknown Urine WBC (Auto) 1.0 /HPF (0.0-6.0) 06/26/19 Unknown Urine RBC (Auto) 1.0 /HPF (0.0-6.0) 06/26/19 Unknown Urine Bacteria (Auto) 1+ /HPF (Negative) 06/26/19 Unknown Urine Mucus Few /HPF 06/26/19 Unknown Urine Opiates Screen Presumptive negative 06/26/19 Unknown Urine Methadone Screen Presumptive negative 06/26/19 Unknown Ur Barbiturates Screen Presumptive negative 06/26/19 Unknown Ur Phencyclidine Scrn Presumptive negative 06/26/19 Unknown Ur Amphetamines Screen Presumptive negative 06/26/19 Unknown U Benzodiazepines Scrn Presumptive negative 06/26/19 Unknown Urine Cocaine Screen Presumptive negative 06/26/19 Unknown U Marijuana (THC) Screen Presumptive negative 06/26/19 Unknown Drugs of Abuse Note Disclamer 06/26/19 Unknown Influenza A (Rapid) Negative (Negative) 06/27/19 03:00 Influenza B (Rapid) Negative (Negative) 06/27/19 03:00 Active Medications - Current Medications Current Medications: Generic Name Dose Route Start Last Admin Trade Name Freq PRN Reason Stop Dose Admin Acetaminophen 650 mg 06/26/19 09:47 Tylenol PO Q4H PRN Pain MILD(1-3)/Fever >100.5/CALLEJAS Acetaminophen/Hydrocodone Bitart 1 each 06/26/19 10:39 [place] 7.5/325 PO Q6H PRN Pain, Moderate (4-6) Albuterol 2.5 mg 06/27/19 14:12 Proventil IH Q4HRT PRN Shortness Of Breath Albuterol/Ipratropium 1 ampul 06/27/19 16:00 06/29/19 09:37 Duoneb *Not For Prn Use* IH 1 ampul Q6HRT PEPE Administration Arformoterol Tartrate 15 mcg 06/27/19 20:00 06/29/19 09:37 Brovana Nebu IH 15 mcg Q12HRT PEPE Administration Budesonide 0.5 mg 06/27/19 20:00 06/29/19 09:37 Pulmicort IH 0.5 mg Q12HRT PEPE Administration Clonazepam 1 mg 06/26/19 23:00 06/28/19 21:36 Klonopin PO 1 mg QHS PEPE Administration Diltiazem HCl 60 mg 06/27/19 22:00 06/29/19 05:00 Cardizem PO 60 mg Q8HR PEPE Administration Enoxaparin Sodium 40 mg 06/26/19 22:00 06/28/19 21:37 Enoxaparin SUB-Q 40 mg QDAY@2200 PEPE Administration Ceftriaxone Sodium 1 gm in 50 mls @ 100 mls/hr 06/26/19 12:00 06/29/19 09:42 Rocephin/Ns 1 Gm/50 Ml IV 100 mls/hr Q24HR PEPE Administration Protocol Azithromycin 500 mg/ Sodium 250 mls @ 250 mls/hr 06/26/19 11:00 06/29/19 10:35 Chloride IV 250 mls/hr Q24HR PEPE Administration Protocol Sodium Chloride 1,000 mls @ 42 mls/hr 06/26/19 10:00 06/29/19 07:09 Nacl 0.9% 1000 Ml IV 75 mls/hr DIRECT PEPE Administration Methylprednisolone Sodium Succinate 125 mg 06/29/19 10:00 06/29/19 09:48 Solu-Medrol IV 125 mg Q12HR PEPE Administration Miscellaneous Medication 1 tab 06/26/19 10:00 06/26/19 11:11 Methscopolamine Desha [Pamine] PO Not Given DAILY PEPE Ondansetron HCl 4 mg 06/26/19 09:47 Zofran IV Q8H PRN Nausea And Vomiting Sodium Chloride 10 ml 06/26/19 10:00 06/29/19 09:42 Sodium Chloride Flush Syringe 10 Ml IV 10 ml BID PEPE Administration Sodium Chloride 10 ml 06/26/19 09:47 06/28/19 04:28 Sodium Chloride Flush Syringe 10 Ml IV 10 ml PRN PRN Administration LINE FLUSH
--- NOTE | 2019-06-29 13:57 | Progress Note ---
Assessment and Plan Acute hypoxemic respiratory failure Multifocal infiltrates/presumed pneumonia Moderate protein calorie malnutrition Low grade fevers (CT chest consistent with element of diffuse proliferative lung disease) - repeat lactate levels and get procalcitonin to aid clinical decision making - sputum C&S - ABG reviewed and addressed - follow KADY & VENKATA levels - continue systemic steroids but taper (tapered to 60 mg IV q12h) - continue supplemental oxygen, wean for O2 sats > 90% - get HALAL BUTCHER evaluation for aspiration (? Aspiration pneumonia element) - treat empirically for CAP element - outpatient PFT's - may ultimately need bronchoscopy vs lung biopsy - GI & VTE prophylaxis - Optimize nutritional status- BMI 18.9 - continue chronic home medications - Monitor hemodynamics closely - Monitor and trend fever curve - continue other care per attending ... re-evaluate in am & prn Subjective Date of service: 06/29/19 Principal diagnosis: Ac hypoxemic resp failure; Bilateral pneumonia; DPLD / Pulm Fibrosis Interval history: Patient is seen today for: Acute hypoxemic respiratory failure; Multifocal infiltrates/presumed pneumonia; Moderate protein calorie malnutrition; Low grade fevers Seen and examined at bedside; 24hour events reviewed; nursing and respiratory care staff consulted; no adverse overnight events reported to me; resting peacefully in bed; remains on supplemental oxygen; no acute chest pains or palpitations Objective Vital Signs - 12hr 06/29/19 06/29/19 06/29/19 02:00 02:10 02:30 Temperature 98.6 F Pulse Rate 95 H Pulse Rate [ 99 H Anterior Bilateral Throughout] Pulse Rate [ Right Radial] Respiratory 20 Rate Respiratory 20 Rate [Anterior Bilateral Throughout] Blood Pressure 118/46 O2 Sat by Pulse 97 98 Oximetry 06/29/19 06/29/19 06/29/19 05:00 07:27 09:35 Temperature 98.8 F Pulse Rate 103 H 90 Pulse Rate [ 96 H Anterior Bilateral Throughout] Pulse Rate [ Right Radial] Respiratory 22 Rate Respiratory 20 Rate [Anterior Bilateral Throughout] Blood Pressure 160/66 127/55 O2 Sat by Pulse 95 98 Oximetry 06/29/19 06/29/19 06/29/19 10:00 13:46 13:54 Temperature 98.5 F Pulse Rate 102 H 102 H Pulse Rate [ Anterior Bilateral Throughout] Pulse Rate [ 90 Right Radial] Respiratory 22 22 Rate Respiratory Rate [Anterior Bilateral Throughout] Blood Pressure 144/68 144/64 O2 Sat by Pulse 95 98 Oximetry Constitutional: no acute distress, other (eldertly looking thin AAF, with mildly increased respiratory effort at rest) Eyes: non-icteric ENT: oropharynx moist, other (s/p oral surgery) Neck: supple, no lymphadenopathy, no JVD Effort: mildly labored Ascultation: Bilateral: diminished breath sounds, rhonchi Percussion: Bilateral: not dull Cardiovascular: regular rate and rhythm Gastrointestinal: normoactive bowel sounds, soft, non-tender, non-distended Integumentary: normal Extremities: no cyanosis, no edema, pulses normal, no ischemia or petechiae Neurologic: normal mental status, non-focal exam, pupils equal and round, CN II- XII normal Psychiatric: mood appropriate, affect normal CBC and BMP: 06/27/19 05:38 06/27/19 05:38 ABG, PT/INR, D-dimer: ABG ABG pH 7.378 pH Units (7.350-7.450) 06/28/19 17:50 ABG pCO2 41.8 mm Hg 06/28/19 17:50 ABG pO2 55.7 mm Hg (80.0-90.0) L 06/28/19 17:50 ABG O2 Saturation 88.5 % (95.0-99.0) L 06/28/19 17:50 Abnormal lab findings: Abnormal Labs 06/26/19 06/26/19 06/26/19 05:43 05:43 05:43 WBC RBC MCV 100 H MCH 35 H MCHC 35 H Seg Neuts % (Manual) 87.0 H Lymphocytes % (Manual) 6.0 L Seg Neutrophils # Man 9.0 H Lymphocytes # (Manual) 0.6 L ABG pO2 ABG O2 Saturation ABG Hemoglobin Oxyhemoglobin Potassium Chloride 95.9 L Creatinine Glucose 153 H Lactic Acid 6.00 H* Calcium Magnesium AST 100 H Free T4 Thyroxine (T4) 06/26/19 06/26/19 06/26/19 05:43 12:47 12:47 WBC RBC MCV MCH MCHC Seg Neuts % (Manual) Lymphocytes % (Manual) Seg Neutrophils # Man Lymphocytes # (Manual) ABG pO2 ABG O2 Saturation ABG Hemoglobin Oxyhemoglobin Potassium Chloride Creatinine Glucose Lactic Acid 2.20 H* Calcium Magnesium 1.10 L AST Free T4 0.69 L Thyroxine (T4) 06/26/19 06/27/19 06/27/19 12:47 05:38 05:38 WBC 14.3 H RBC 3.13 L MCV 101 H MCH 34 H MCHC Seg Neuts % (Manual) 96.0 H Lymphocytes % (Manual) 3.0 L Seg Neutrophils # Man 13.7 H Lymphocytes # (Manual) 0.4 L ABG pO2 ABG O2 Saturation ABG Hemoglobin Oxyhemoglobin Potassium 3.5 L Chloride Creatinine 0.6 L Glucose 137 H Lactic Acid Calcium 7.5 L D Magnesium AST Free T4 Thyroxine (T4) 3.9 L 06/28/19 17:50 WBC RBC MCV MCH MCHC Seg Neuts % (Manual) Lymphocytes % (Manual) Seg Neutrophils # Man Lymphocytes # (Manual) ABG pO2 55.7 L ABG O2 Saturation 88.5 L ABG Hemoglobin 11.1 L Oxyhemoglobin 86.8 L Potassium Chloride Creatinine Glucose Lactic Acid Calcium Magnesium AST Free T4 Thyroxine (T4) Allied health notes reviewed: nursing
[2019-06-29] MEDS: clonazePAM 0.5 MG TAB PO SCH (21:52)
[2019-06-29] MEDS: ENOXAPARIN 40 MG/0.4 ML INJ SUB-Q SCH (21:53)
[2019-06-29] MEDS: methylPREDNISolone Sod Succinate 125 MG/2 ML INJ IV SCH (21:54)
[2019-06-30] MEDS: IPRATROPIUM/ALBUTEROL SULFATE 3 ML AMPUL.NEB IH SCH ×4 (02:22→19:57)
[2019-06-30] MEDS: LEVOTHYROXINE 25 MCG TAB PO SCH (05:26)
[2019-06-30] MEDS: dilTIAZem 60 MG TAB PO SCH ×3 (05:41→21:48)
[2019-06-30] MEDS: BUDESONIDE 0.5 MG/2 ML NEBU IH SCH ×2 (07:40→19:57)
[2019-06-30] MEDS: ARFORMOTEROL 15 MCG/2 ML NEBU IH SCH ×2 (07:40→19:57)
[2019-06-30] MEDS: cefTRIAXone/NS 1 GM/50 ML 1 GM/50 ML BAG IV SCH (09:05)
[2019-06-30] MEDS: SODIUM CHLORIDE 0.9% 1000 ML 1,000 ML IV SCH (09:12)
[2019-06-30] MEDS: methylPREDNISolone Sod Succinate 125 MG/2 ML INJ IV SCH ×2 (09:12→21:48)
[2019-06-30] MEDS: AZITHROMYCIN 500 MG in SODIUM CHLORIDE 0.9% 250ML 250 ML IV SCH (09:42)
--- NOTE | 2019-06-30 12:18 | Progress Note ---
Assessment and Plan Patient asleep and resting on Vapotherm 40% with O2 saturation 93%. Patient is afebrile and has leukocytosis. Patient is on azithromycin and ceftriaxone. ABGs from 06/28/2019 pH 7.38, pCO2 42, pO2 56, HCO3 24, O2 saturation 89%, FiO2 50% Chest CT from 06/27/2019 reported Moderate patchy airspace disease is identified throughout both lungs. The upper lobes and left lower lobe are most affected. There is no obvious mass given the infiltra te. Bilateral pneumonic infiltrates as described. Chest X-ray 06/26/2019 reported Patchy bilateral airspace disease is concerning for multifocal pneumonia. Follow-up is recommended. - Patient Problems (1) Acute hypoxemic respiratory failure Current Visit: Yes Status: Acute Plan to address problem: 1. Vapotherm FIO2 40% 2. Albuterol and atrovent aerosol treatments q 6 hrs PRN for shortness of breath 3. Continue Brovana and Budesonide 4. Continue IV solumedrol 5. Continue azithromycin and rocephin 6. Continue Lovenox 7. Recommend GI prophylaxis (2) Multifocal pneumonia Current Visit: Yes Status: Acute Plan to address problem: 1. Vapotherm FIO2 40% 2. Albuterol and atrovent aerosol treatments q 6 hrs PRN for shortness of breath 3. Continue Brovana and Budesonide 4. Continue IV solumedrol 5. Continue azithromycin and rocephin 6. Continue Lovenox 7. Recommend GI prophylaxis (3) HTN (hypertension) Current Visit: Yes Status: Chronic Plan to address problem: Management as per Primary Care Subjective Date of service: 06/30/19 Principal diagnosis: Ac hypoxemic resp failure; Bilateral pneumonia; DPLD / Pulm Fibrosis Interval history: Patient asleep and resting on Vapotherm 40% with O2 saturation 93%. Patient is afebrile and has leukocytosis. Patient is on azithromycin and ceftriaxone. ABGs from 06/28/2019 pH 7.38, pCO2 42, pO2 56, HCO3 24, O2 saturation 89%, FiO2 50% Chest CT from 06/27/2019 reported Moderate patchy airspace disease is identified throughout both lungs. The upper lobes and left lower lobe are most affected. There is no obvious mass given the infiltrate. Bilateral pneumonic infiltrates as described. Chest X-ray 06/26/2019 reported Patchy bilateral airspace disease is concerning for multifocal pneumonia. Follow-up is recommended. Objective Vital Signs - 12hr 06/30/19 06/30/19 06/30/19 02:22 02:28 03:34 Temperature 98.6 F Pulse Rate 96 H Pulse Rate [ 97 H Anterior Bilateral Throughout] Pulse Rate [ Right Radial] Respiratory 19 Rate Respiratory 24 Rate [Anterior Bilateral Throughout] Blood Pressure 155/77 Blood Pressure [Left] O2 Sat by Pulse 95 97 Oximetry 06/30/19 06/30/19 06/30/19 05:25 05:41 07:39 Temperature Pulse Rate 98 H 98 H Pulse Rate [ Anterior Bilateral Throughout] Pulse Rate [ Right Radial] Respiratory Rate Respiratory Rate [Anterior Bilateral Throughout] Blood Pressure Blood Pressure [Left] O2 Sat by Pulse 97 Oximetry 06/30/19 06/30/19 06/30/19 07:41 08:00 10:00 Temperature 98.6 F Pulse Rate 100 H Pulse Rate [ 98 H Anterior Bilateral Throughout] Pulse Rate [ 98 H Right Radial] Respiratory 20 Rate Respiratory 20 Rate [Anterior Bilateral Throughout] Blood Pressure Blood Pressure 151/71 [Left] O2 Sat by Pulse 93 Oximetry Constitutional: no acute distress, other (eldertly looking thin AAF, with mildly increased respiratory effort at rest) Eyes: non-icteric ENT: oropharynx moist, other (s/p oral surgery) Neck: supple, no lymphadenopathy, no JVD Effort: mildly labored Ascultation: Bilateral: diminished breath sounds, rhonchi Percussion: Bilateral: not dull Cardiovascular: regular rate and rhythm Gastrointestinal: normoactive bowel sounds, soft, non-tender, non-distended Integumentary: normal Extremities: no cyanosis, no edema, pulses normal, no ischemia or petechiae Neurologic: normal mental status, non-focal exam, pupils equal and round, CN II- XII normal Psychiatric: mood appropriate, affect normal CBC and BMP: 06/27/19 05:38 06/27/19 05:38 ABG, PT/INR, D-dimer: ABG ABG pH 7.378 pH Units (7.350-7.450) 06/28/19 17:50 ABG pCO2 41.8 mm Hg 06/28/19 17:50 ABG pO2 55.7 mm Hg (80.0-90.0) L 06/28/19 17:50 ABG O2 Saturation 88.5 % (95.0-99.0) L 06/28/19 17:50 Abnormal lab findings: Abnormal Labs 06/26/19 06/26/19 06/26/19 05:43 05:43 05:43 WBC RBC MCV 100 H MCH 35 H MCHC 35 H Seg Neuts % (Manual) 87.0 H Lymphocytes % (Manual) 6.0 L Seg Neutrophils # Man 9.0 H Lymphocytes # (Manual) 0.6 L ABG pO2 ABG O2 Saturation ABG Hemoglobin Oxyhemoglobin Potassium Chloride 95.9 L Creatinine Glucose 153 H Lactic Acid 6.00 H* Calcium Magnesium AST 100 H Free T4 Thyroxine (T4) 06/26/19 06/26/19 06/26/19 05:43 12:47 12:47 WBC RBC MCV MCH MCHC Seg Neuts % (Manual) Lymphocytes % (Manual) Seg Neutrophils # Man Lymphocytes # (Manual) ABG pO2 ABG O2 Saturation ABG Hemoglobin Oxyhemoglobin Potassium Chloride Creatinine Glucose Lactic Acid 2.20 H* Calcium Magnesium 1.10 L AST Free T4 0.69 L Thyroxine (T4) 06/26/19 06/27/19 06/27/19 12:47 05:38 05:38 WBC 14.3 H RBC 3.13 L MCV 101 H MCH 34 H MCHC Seg Neuts % (Manual) 96.0 H Lymphocytes % (Manual) 3.0 L Seg Neutrophils # Man 13.7 H Lymphocytes # (Manual) 0.4 L ABG pO2 ABG O2 Saturation ABG Hemoglobin Oxyhemoglobin Potassium 3.5 L Chloride Creatinine 0.6 L Glucose 137 H Lactic Acid Calcium 7.5 L D Magnesium AST Free T4 Thyroxine (T4) 3.9 L 06/28/19 06/29/19 17:50 15:04 WBC RBC MCV MCH MCHC Seg Neuts % (Manual) Lymphocytes % (Manual) Seg Neutrophils # Man Lymphocytes # (Manual) ABG pO2 55.7 L ABG O2 Saturation 88.5 L ABG Hemoglobin 11.1 L Oxyhemoglobin 86.8 L Potassium Chloride Creatinine Glucose Lactic Acid 2.90 H* Calcium Magnesium AST Free T4 Thyroxine (T4) Chest x-ray: report reviewed, image reviewed CT scan - chest: report reviewed, image reviewed Additional Studies: Chest CT 06/27/2019 reported Moderate patchy airspace disease is identified throughout both lungs. The upper lobes and left lower lobe are most affected. There is no obvious mass given the infiltrate. Bilateral pneumonic infiltrates as described. Chest X-ray 06/26/2019 reported 1. Patchy bilateral airspace disease is concerning for multifocal pneumonia. Follow-up is recommended.
--- NOTE | 2019-06-30 13:43 | Progress Note ---
Assessment and Plan Assessment and plan: 68-year-old woman who was in the hospital with cough sob and palpitations. Acute hypoxic respiratory failure Continue high flow oxygen CT chest consistent with diffuse proliferative disease, fup KADY and VENKATA levels. For possible bronc? Given history of oral cancer chaperone would like to rule out mets Flu negative Multifocal pneumonia/sepsis? Continue empiric antibiotics. Per chaperone presentation is not consistent with pneumonia. ID consult, may benefit from bronc. Copd exacerbation? May have obstructive component to lung disease, continue empiric steroids and nebs. afib ruled out, has Sinus tachy due to sepsis Continue treatment for sepsis, cardiology input appreciated Hypokalemia Repleted Hypomagnesemia Repleted Hypothyroidism, new onset low-dose Synthroid Hypertension Optimize meds. Mild to moderate malnutrition; dietitian consult, continue Ensure shakes DVT prophylaxis; lovenox History Interval history: Review of systems Constitutional: No fevers, no malaise, no joint pains CVS: No chest pain, no orthopnea, no pedal edema GI: No abdominal pain, no diarrhea, no vomiting, no constipation Respiratory: , Interval improvement in shortness of breath and cough. Hospitalist Physical - Physical exam Narrative exam: general.: Mild distress, cachexia HEENT: Moist mucous membranes, extraocular muscles intact, edentulous Neck: supple Cardiac: S1-S2 heard Lungs: Rhonchorous breath sounds, , decreased air entry Abdomen: soft , nontender, nondistended, bowel sounds positive Extremities: no edema clubbing or cyanosis Skin: no rash or lesions Neurologic: no gross focal deficits Psych: calm, and cooperative - Constitutional Vitals: Temp Pulse Resp BP Pulse Ox 97.7 F 99 H 22 163/75 96 06/30/19 13:32 06/30/19 13:34 06/30/19 13:32 06/30/19 13:34 06/30/19 13:32 General appearance: Present: mild distress, well-nourished Results - Labs CBC & Chem 7: 06/27/19 05:38 06/27/19 05:38 Labs: Laboratory Last Values WBC 14.3 K/mm3 (4.5-11.0) H 06/27/19 05:38 RBC 3.13 M/mm3 (3.65-5.03) L 06/27/19 05:38 Hgb 10.7 gm/dl (10.1-14.3) D 06/27/19 05:38 Hct 31.5 % (30.3-42.9) D 06/27/19 05:38 MCV 101 fl (79-97) H 06/27/19 05:38 MCH 34 pg (28-32) H 06/27/19 05:38 MCHC 34 % (30-34) 06/27/19 05:38 RDW 14.7 % (13.2-15.2) 06/27/19 05:38 Plt Count 185 K/mm3 (140-440) 06/27/19 05:38 Add Manual Diff Complete 06/27/19 05:38 Total Counted 100 06/27/19 05:38 Seg Neutrophils % Denture Packer 06/27/19 05:38 Seg Neuts % (Manual) 96.0 % (40.0-70.0) H 06/27/19 05:38 Band Neutrophils % 0 % 06/27/19 05:38 Lymphocytes % (Manual) 3.0 % (13.4-35.0) L 06/27/19 05:38 Reactive Lymphs % (Man) 0 % 06/27/19 05:38 Monocytes % (Manual) 0 % (0.0-7.3) 06/27/19 05:38 Eosinophils % (Manual) 0 % (0.0-4.3) 06/27/19 05:38 Basophils % (Manual) 0 % (0.0-1.8) 06/27/19 05:38 Metamyelocytes % 1.0 % 06/27/19 05:38 Myelocytes % 0 % 06/27/19 05:38 Promyelocytes % 0 % 06/27/19 05:38 Blast Cells % 0 % 06/27/19 05:38 Nucleated RBC % Not Reportable 06/27/19 05:38 Seg Neutrophils # Man 13.7 K/mm3 (1.8-7.7) H 06/27/19 05:38 Band Neutrophils # 0.0 K/mm3 06/27/19 05:38 Lymphocytes # (Manual) 0.4 K/mm3 (1.2-5.4) L 06/27/19 05:38 Abs React Lymphs (Man) 0.0 K/mm3 06/27/19 05:38 Monocytes # (Manual) 0.0 K/mm3 (0.0-0.8) 06/27/19 05:38 Eosinophils # (Manual) 0.0 K/mm3 (0.0-0.4) 06/27/19 05:38 Basophils # (Manual) 0.0 K/mm3 (0.0-0.1) 06/27/19 05:38 Metamyelocytes # 0.1 K/mm3 06/27/19 05:38 Myelocytes # 0.0 K/mm3 06/27/19 05:38 Promyelocytes # 0.0 K/mm3 06/27/19 05:38 Blast Cells # 0.0 K/mm3 06/27/19 05:38 WBC Morphology Not Reportable 06/27/19 05:38 Hypersegmented Neuts Not Reportable 06/27/19 05:38 Hyposegmented Neuts Not Reportable 06/27/19 05:38 Hypogranular Neuts Not Reportable 06/27/19 05:38 Smudge Cells Not Reportable 06/27/19 05:38 Toxic Granulation Not Reportable 06/27/19 05:38 Toxic Vacuolation Not Reportable 06/27/19 05:38 Dohle Bodies Not Reportable 06/27/19 05:38 Pelger-Huet Anomaly Not Reportable 06/27/19 05:38 Ty Rods Not Reportable 06/27/19 05:38 Platelet Estimate Consistent w auto 06/27/19 05:38 Clumped Platelets Not Reportable 06/27/19 05:38 Plt Clumps, EDTA Not Reportable 06/27/19 05:38 Large Platelets Not Reportable 06/27/19 05:38 Giant Platelets Not Reportable 06/27/19 05:38 Platelet Satelliting Not Reportable 06/27/19 05:38 Plt Morphology Comment Not Reportable 06/27/19 05:38 RBC Morphology Normal 06/27/19 05:38 Dimorphic RBCs Not Reportable 06/27/19 05:38 Polychromasia Not Reportable 06/27/19 05:38 Hypochromasia Not Reportable 06/27/19 05:38 Poikilocytosis Not Reportable 06/27/19 05:38 Anisocytosis Not Reportable 06/27/19 05:38 Microcytosis Not Reportable 06/27/19 05:38 Macrocytosis Not Reportable 06/27/19 05:38 Spherocytes Not Reportable 06/27/19 05:38 Pappenheimer Bodies Not Reportable 06/27/19 05:38 Sickle Cells Not Reportable 06/27/19 05:38 Target Cells Not Reportable 06/27/19 05:38 Tear Drop Cells Not Reportable 06/27/19 05:38 Ovalocytes Not Reportable 06/27/19 05:38 Helmet Cells Not Reportable 06/27/19 05:38 [place] Bodies Not Reportable 06/27/19 05:38 [place] Rings Not Reportable 06/27/19 05:38 [place] Cells Not Reportable 06/27/19 05:38 Bite Cells Not Reportable 06/27/19 05:38 Crenated Cell Not Reportable 06/27/19 05:38 Elliptocytes Not Reportable 06/27/19 05:38 Acanthocytes (Spur) Not Reportable 06/27/19 05:38 Rouleaux Not Reportable 06/27/19 05:38 Hemoglobin C Crystals Not Reportable 06/27/19 05:38 Schistocytes Not Reportable 06/27/19 05:38 Malaria parasites Not Reportable 06/27/19 05:38 Maxwell Bodies Not Reportable 06/27/19 05:38 Hem Pathologist Commnt No 06/27/19 05:38 ABG pH 7.378 pH Units (7.350-7.450) 06/28/19 17:50 ABG pCO2 41.8 mm Hg 06/28/19 17:50 ABG pO2 55.7 mm Hg (80.0-90.0) L 06/28/19 17:50 ABG HCO3 24.1 mmol/L (20.0-26.0) 06/28/19 17:50 ABG O2 Saturation 88.5 % (95.0-99.0) L 06/28/19 17:50 ABG O2 Content 13.6 (0.0-44) 06/28/19 17:50 ABG Base Excess -1.1 mmol/L (-2.0-3.0) 06/28/19 17:50 ABG Hemoglobin 11.1 gm/dl (12.0-16.0) L 06/28/19 17:50 ABG Carboxyhemoglobin 1.3 % (0.0-5.0) 06/28/19 17:50 ABG Methemoglobin 0.6 % (0.0-1.5) 06/28/19 17:50 Oxyhemoglobin 86.8 % (95.0-99.0) L 06/28/19 17:50 FiO2 50 % 06/28/19 17:50 Sodium 139 mmol/L (137-145) 06/27/19 05:38 Potassium 3.5 mmol/L (3.6-5.0) L 06/27/19 05:38 Chloride 104.0 mmol/L (98-107) 06/27/19 05:38 Carbon Dioxide 23 mmol/L (22-30) 06/27/19 05:38 Anion Gap 16 mmol/L 06/27/19 05:38 BUN 9 mg/dL (7-17) 06/27/19 05:38 Creatinine 0.6 mg/dL (0.7-1.2) L 06/27/19 05:38 Estimated GFR > 60 ml/min 06/27/19 05:38 BUN/Creatinine Ratio 15 % 06/27/19 05:38 Glucose 137 mg/dL (65-100) H 06/27/19 05:38 Lactic Acid 2.90 mmol/L (0.7-2.0) H* 06/29/19 15:04 Calcium 7.5 mg/dL (8.4-10.2) L D 06/27/19 05:38 Magnesium 1.90 mg/dL (1.7-2.3) 06/27/19 05:38 Total Bilirubin 0.40 mg/dL (0.1-1.2) 06/26/19 05:43 AST 100 units/L (5-40) H 06/26/19 05:43 ALT 49 units/L (7-56) 06/26/19 05:43 Alkaline Phosphatase 54 units/L (35-129) 06/26/19 05:43 Troponin T < 0.010 ng/mL (0.00-0.029) 06/26/19 05:43 Total Protein 7.6 g/dL (6.3-8.2) 06/26/19 05:43 Albumin 4.1 g/dL (3.9-5) 06/26/19 05:43 Albumin/Globulin Ratio 1.2 % 06/26/19 05:43 Procalcitonin 2.12 ng/mL (<0.15) 06/29/19 15:04 TSH 0.939 mlU/mL (0.270-4.200) 06/26/19 12:47 Free T4 0.69 ng/dL (0.76-1.46) L 06/26/19 12:47 Thyroxine (T4) 3.9 ug/dL (4.0-12.0) L 06/26/19 12:47 Urine Color Straw (Yellow) 06/26/19 Unknown Urine Turbidity Clear (Clear) 06/26/19 Unknown Urine pH 6.0 (5.0-7.0) 06/26/19 Unknown Ur Specific [place] 1.006 (1.003-1.030) 06/26/19 Unknown Urine Protein <15 mg/dl mg/dL (Negative) 06/26/19 Unknown Urine Glucose (UA) Neg mg/dL (Negative) 06/26/19 Unknown Urine Ketones Neg mg/dL (Negative) 06/26/19 Unknown Urine Blood Neg (Negative) 06/26/19 Unknown Urine Nitrite Neg (Negative) 06/26/19 Unknown Urine Bilirubin Neg (Negative) 06/26/19 Unknown Urine Urobilinogen < 2.0 mg/dL (<2.0) 06/26/19 Unknown Ur Leukocyte Esterase Neg (Negative) 06/26/19 Unknown Urine WBC (Auto) 1.0 /HPF (0.0-6.0) 06/26/19 Unknown Urine RBC (Auto) 1.0 /HPF (0.0-6.0) 06/26/19 Unknown Urine Bacteria (Auto) 1+ /HPF (Negative) 06/26/19 Unknown Urine Mucus Few /HPF 06/26/19 Unknown Urine Opiates Screen Presumptive negative 06/26/19 Unknown Urine Methadone Screen Presumptive negative 06/26/19 Unknown Ur Barbiturates Screen Presumptive negative 06/26/19 Unknown Ur Phencyclidine Scrn Presumptive negative 06/26/19 Unknown Ur Amphetamines Screen Presumptive negative 06/26/19 Unknown U Benzodiazepines Scrn Presumptive negative 06/26/19 Unknown Urine Cocaine Screen Presumptive negative 06/26/19 Unknown U Marijuana (THC) Screen Presumptive negative 06/26/19 Unknown Drugs of Abuse Note Disclamer 06/26/19 Unknown Influenza A (Rapid) Negative (Negative) 06/27/19 03:00 Influenza B (Rapid) Negative (Negative) 06/27/19 03:00 Active Medications - Current Medications Current Medications: Generic Name Dose Route Start Last Admin Trade Name Freq PRN Reason Stop Dose Admin Acetaminophen 650 mg 06/26/19 09:47 Tylenol PO Q4H PRN Pain MILD(1-3)/Fever >100.5/CALLEJAS Acetaminophen/Hydrocodone Bitart 1 each 06/26/19 10:39 [place] 7.5/325 PO Q6H PRN Pain, Moderate (4-6) Albuterol 2.5 mg 06/27/19 14:12 Proventil IH Q4HRT PRN Shortness Of Breath Albuterol/Ipratropium 1 ampul 06/27/19 16:00 06/30/19 07:41 Duoneb *Not For Prn Use* IH Not Given Q6HRT PEPE Arformoterol Tartrate 15 mcg 06/27/19 20:00 06/30/19 07:40 Brovana Nebu IH 15 mcg Q12HRT PEPE Administration Budesonide 0.5 mg 06/27/19 20:00 06/30/19 07:40 Pulmicort IH 0.5 mg Q12HRT PEPE Administration Clonazepam 1 mg 06/26/19 23:00 06/29/19 21:52 Klonopin PO 1 mg QHS PEPE Administration Diltiazem HCl 60 mg 06/27/19 22:00 06/30/19 13:34 Cardizem PO 60 mg Q8HR PEPE Administration Enoxaparin Sodium 40 mg 06/26/19 22:00 06/29/19 21:53 Enoxaparin SUB-Q 40 mg QDAY@2200 PEPE Administration Ceftriaxone Sodium 1 gm in 50 mls @ 100 mls/hr 06/26/19 12:00 06/30/19 09:05 Rocephin/Ns 1 Gm/50 Ml IV 100 mls/hr Q24HR PEPE Administration Protocol Azithromycin 500 mg/ Sodium 250 mls @ 250 mls/hr 06/26/19 11:00 06/30/19 09:42 Chloride IV 250 mls/hr Q24HR PEPE Administration Protocol Sodium Chloride 1,000 mls @ 42 mls/hr 06/26/19 10:00 06/30/19 09:12 Nacl 0.9% 1000 Ml IV 75 mls/hr DIRECT PEPE Administration Levothyroxine Sodium 25 mcg 06/30/19 06:00 06/30/19 05:26 Synthroid PO 25 mcg DAILY@0600 PEPE Administration Methylprednisolone Sodium Succinate 60 mg 06/29/19 22:00 06/30/19 09:12 Solu-Medrol IV 60 mg Q12H PEPE Administration Miscellaneous Medication 1 tab 06/26/19 10:00 06/26/19 11:11 Methscopolamine [place] [Pamine] PO Not Given DAILY PEPE Ondansetron HCl 4 mg 06/26/19 09:47 Zofran IV Q8H PRN Nausea And Vomiting Sodium Chloride 10 ml 06/26/19 10:00 06/30/19 09:08 Sodium Chloride Flush Syringe 10 Ml IV 10 ml BID PEPE Administration Sodium Chloride 10 ml 06/26/19 09:47 06/28/19 04:28 Sodium Chloride Flush Syringe 10 Ml IV 10 ml PRN PRN Administration LINE FLUSH Nutrition/Malnutrition Assess - Dietary Evaluation Nutrition/Malnutrition Findings: Nutrition Notes Start: 06/30/19 12:08 Freq: Status: Active Protocol: Document 06/30/19 12:08 LM (Rec: 06/30/19 12:30 LM [id number]) Nutrition Notes Need for Assessment generated from: MD Order,[facility] Initial or Follow up Assessment Current Diagnosis Sepsis,Hypertension Other Pertinent Diagnosis hx of mouth cancer, pneumonia, hypothyroidism Current Diet Mechanical soft Labs/Tests Reviewed Pertinent Medications NaCl at 42 ml/hr Solumedrol Height 5 ft 4 in Weight 46.9 kg [place] Body Weight (kg) 54.54 BMI 17.7 Weight Status Emaciated Subjective/Other Information MD consult for malnutrition. Pt stated she has not been eating well due to hx of mouth cancer. Pt stated she has difficulty swallowing foods but not liquids. HAND BASEBALL SEWER recommends pureed diet with thin liguids. Will order a pureed diet for pt. Pt stated she has always been small and has been losing wt her whole life. Pt stated that she believes she weighs 95 lb and her UBW is 105 lb ( pt currently weighs 103 lb). Observed clavical and deltoid wasting. Pt would like Ensure. 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 No Is Patient Ambulatory and/or Out of Bed Yes REE-([place]. or-ambulatory/OOB) [ 1292.200 NUTR.MSJOOB] Kcal/Kg value to use for calculation 32 Approximate Energy Requirements Using 1501 kcal/Kg Calculation Used for Recommendations Kcal/kg Additional Notes Protein: 56-70g (1.2-1.5g/kg) Fluid: 1 ml/kcal Nutrition Intervention Change Diet Order: pureed with thin liquids Add Supplement/Snack (indicate name/kcal Ensure enlive all flavors TID /protein ) Provides kCal: 1,050 Provides Protein (gm) 60 Goal #1 Meet at least 80% of energy and protein needs Goal #2 weight gain/maintenance Anticipated Discharge Needs: pureed diet with ONS TID Follow-Up By: 07/02/19 Additional Comments F/U for PO/ONS intakes
[2019-06-30] MEDS ORDERED: VANCOMYCIN 750 MG in SODIUM CHLORIDE 0.9% 500 ML 500 ML IV ONE (15:57)
--- NOTE | 2019-06-30 15:57 | Consultation ---
History of Present Illness - Reason for Consult Consult date: 06/30/19 ?PNA Requesting physician: WM THAYER - History of Present Illness The patient is a 68-year-old female with hypertension, prior oral cancer status post extensive surgery including mandibulectomy and reconstruction, radiation therapy many years ago presented to the emergency room on 06/26/2019 with complaints of shortness of breath and fever. Found to have bilateral pneumonia, started on empiric ceftriaxone and Zithromax. She was also seen by pulmonary and has been receiving steroids. She continues to have a high oxygen requirement, CT chest revealed extensive bilateral airspace disease. Infectious diseases was consulted for additional evaluation. Now afebrile but still feels short of breath, on high flow oxygen. Ever since her reconstruction and mandibulectomy, her swallowing, speech have been somewhat impaired and also she is unable to bring up any sputum. Review of Systems: General: Fever of 103 on admission HEENT: no new visual disturbance Respiratory: + for cough, shortness of breath Cardiovascular: No chest pain, syncope Gastrointestinal: No nausea, vomiting or diarrhea Genitourinary: No dysuria or hematuria Musculoskeletal: No new or worsening neck pain or back pain Neurologic: No headaches, seizures Hematologic: No easy bruising or bleeding Endocrine: No night sweats or acute weight loss Skin: negative for rash, jaundice Psychiatric: No suicidal or homicidal ideation Past History Past Medical History: hypertension Social history: other (on disability) Family history: hypertension Medications and Allergies Allergies Allergy/AdvReac Type Severity Reaction Status Date / Time No Known Allergies Allergy Verified 03/18/14 13:43 Home Medications Medication Instructions Recorded Confirmed Last Taken Type Bisoprolol/Hctz (Nf) [Ziac 5/6.25 1 tab PO DAILY 03/18/14 06/26/19 03/18/14 History (Nf)] HYDROcodone/ACETAMINOPHEN 1 tab PO PRN 03/18/14 06/26/19 Unknown History [Hydrocodone Acetaminophen(Nf) 7.5/500 mg Tab] Methscopolamine Armour [Pamine] 1 tab PO DAILY 03/18/14 06/26/19 Unknown History clonazePAM [Klonopin] 1 mg PO HS 06/26/19 06/26/19 Unknown History Lactose-Reduced Food [Ensure High 237 ml PO TID #90 bottle 06/28/19 Unknown Rx Protein] Active Meds: Active Medications Acetaminophen (Tylenol) 650 mg PO Q4H PRN PRN Reason: Pain MILD(1-3)/Fever >100.5/CALLEJAS Acetaminophen/Hydrocodone Bitart ([place] 7.5/325) 1 each PO Q6H PRN PRN Reason: Pain, Moderate (4-6) Albuterol (Proventil) 2.5 mg IH Q4HRT PRN PRN Reason: Shortness Of Breath Albuterol/Ipratropium (Duoneb *Not For Prn Use*) 1 ampul IH Q6HRT [facility] Last Admin: 06/30/19 14:15 Dose: 1 ampul Documented by: Arformoterol Tartrate (Brovana Nebu) 15 mcg IH Q12HRT [facility] Last Admin: 06/30/19 07:40 Dose: 15 mcg Documented by: Budesonide (Pulmicort) 0.5 mg IH Q12HRT [facility] Last Admin: 06/30/19 07:40 Dose: 0.5 mg Documented by: Clonazepam (Klonopin) 1 mg PO QHS [facility] Last Admin: 06/29/19 21:52 Dose: 1 mg Documented by: Diltiazem HCl (Cardizem) 60 mg PO Q8HR [facility] Last Admin: 06/30/19 13:34 Dose: 60 mg Documented by: Enoxaparin Sodium (Enoxaparin) 40 mg SUB-Q QDAY@2200 [facility] Last Admin: 06/29/19 21:53 Dose: 40 mg Documented by: Ceftriaxone Sodium (Rocephin/Ns 1 Gm/50 Ml) 1 gm in 50 mls @ 100 mls/hr IV Q24HR [facility]; Protocol Last Admin: 06/30/19 09:05 Dose: 100 mls/hr Documented by: Azithromycin 500 mg/ Sodium (Chloride) 250 mls @ 250 mls/hr IV Q24HR [facility]; Protocol Last Admin: 06/30/19 09:42 Dose: 250 mls/hr Documented by: Sodium Chloride (Nacl 0.9% 1000 Ml) 1,000 mls @ 42 mls/hr IV DIRECT [facility] Last Admin: 06/30/19 09:12 Dose: 75 mls/hr Documented by: Levothyroxine Sodium (Synthroid) 25 mcg PO DAILY@0600 [facility] Last Admin: 06/30/19 05:26 Dose: 25 mcg Documented by: Methylprednisolone Sodium Succinate (Solu-Medrol) 60 mg IV Q12H [facility] Last Admin: 06/30/19 09:12 Dose: 60 mg Documented by: Miscellaneous Medication (Methscopolamine Armour [Pamine]) 1 tab PO DAILY [facility] Last Admin: 06/26/19 11:11 Dose: Not Given Documented by: Ondansetron HCl (Zofran) 4 mg IV Q8H PRN PRN Reason: Nausea And Vomiting Sodium Chloride (Sodium Chloride Flush Syringe 10 Ml) 10 ml IV BID [facility] Last Admin: 06/30/19 09:08 Dose: 10 ml Documented by: Sodium Chloride (Sodium Chloride Flush Syringe 10 Ml) 10 ml IV PRN PRN PRN Reason: LINE FLUSH Last Admin: 06/28/19 04:28 Dose: 10 ml Documented by: Physical Examination - Physical Exam Narrative exam: Physical Exam: Constitutional: Alert, cooperative. No acute distress. Cachectic Head, Ears, Nose: Normocephalic, atraumatic. External ears, nose normal Eyes: Conjunctivae/corneas clear. No icterus. No ptosis. Neck: Supple, no meningeal signs Oral: reconstruction, scar +, no thrush Cardiovascular: S1, S2 normal. Respiratory: diffuse crackles b/l GI: Soft, non-tender; bowel sounds normal. No peritoneal signs Musculoskeletal: No pedal edema, no cyanosis. Skin: No rash or abscess Hem/Lymphatic: No palpable cervical or supraclavicular nodes. No lymphangitis Psych: Mood ok. Affect normal Neurological: Awake, alert, oriented. No gross abnormality - Constitutional Vitals: Vital Signs Temp Pulse Resp BP Pulse Ox 97.7 F 100 H 20 163/75 98 06/30/19 13:32 06/30/19 14:15 06/30/19 14:15 06/30/19 13:34 06/30/19 14:14 Temperature -Last 24 Hours Temperature 97.7 F Temperature 98.6 F Temperature 98.6 F Temperature 97.4 F Results - Labs CBC & Chem 7: 06/27/19 05:38 06/27/19 05:38 - Imaging and Cardiology Chest x-ray: report reviewed, image reviewed (diffuse b/l airspace disease) CT scan - chest: report reviewed, image reviewed (diffuse b/l airspace disease) Assessment and Plan Cultures: 06/26/2019 blood culture: No growth A/P: 68-year-old female with hypertension, prior oral cancer status post extensive surgery including mandibulectomy and reconstruction, radiation therapy many years ago now admitted with: #Bilateral pneumonia causing acute respiratory failure #Fever on admission #H/O oral cancer status post extensive surgery including mandibulectomy and reconstruction, radiation therapy many years ago Recs: Influenza PCR, MRSA nasal PCR ordered Also cover for MRSA, possible post-influenza pneumonia, IV vancomycin ordered complete 5 days of azithromycin and then stop Continue ceftriaxone 1 g daily patient unable to produce any sputum due to her weak cough. May need bronch + BAL Ordered procalcitonin for AM Bong Covarrubias MD, FACP [facility] C: [phone] O: [phone] F: [phone]
[2019-06-30] MEDS ORDERED: VANCOMYCIN PHARMACY TO DOSE IV SCH (16:00)
[2019-06-30] MEDS ORDERED: VANCOMYCIN/NS 1 GM/250 ML 1 GM/250 ML BAG IV ONE (17:00)
[2019-06-30] MEDS: ENOXAPARIN 40 MG/0.4 ML INJ SUB-Q SCH (21:48)
[2019-06-30] MEDS: clonazePAM 0.5 MG TAB PO SCH (22:06)
[2019-07-01] MEDS: IPRATROPIUM/ALBUTEROL SULFATE 3 ML AMPUL.NEB IH SCH ×4 (03:47→21:37)
[2019-07-01] MEDS: dilTIAZem 60 MG TAB PO SCH ×3 (05:42→21:24)
[2019-07-01] MEDS: LEVOTHYROXINE 25 MCG TAB PO SCH (05:42)
[2019-07-01] MEDS: BUDESONIDE 0.5 MG/2 ML NEBU IH SCH ×2 (07:42→21:37)
[2019-07-01] MEDS: ARFORMOTEROL 15 MCG/2 ML NEBU IH SCH ×2 (07:43→21:39)
--- NOTE | 2019-07-01 07:56 | Progress Note ---
Assessment and Plan Assessment and plan: 68-year-old woman who was in the hospital with cough sob and palpitations. Noted to have bilateral pneumonia ID pulmonary evaluated on multiple antibiotics Mild improvement of symptoms, continues to have shortness of breath and cough intermittent Bilateral pneumonia/sepsis? Continue antibiotics Vanco Rocephin and Zithromax. ID following Pulmonary recommendations noted and appreciated Acute hypoxic respiratory failure On high flow oxygen CT chest consistent with diffuse proliferative disease, . 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 Multifocal pneumonia/sepsis? Continue empiric antibiotics. Per shadow graph weight operator presentation is not consistent with pneumonia. ID consult, may benefit from [facility]. Hypokalemia Repleted,f/u electrolytes Hypomagnesemia Repleted Hypothyroidism, new onset low-dose Synthroid Hypertension Optimize meds. Mild to moderate malnutrition; dietitian consult, continue Ensure shakes DVT prophylaxis; lovenox Consults noted and appreciated. History Interval history: Patient seen and examined medical records reviewed. patient c/o mild shortness of breath. Denies chest pain Vital signs reviewed Hospitalist Physical - Constitutional Vitals: Temp Pulse Resp BP Pulse Ox 98.3 F 82 20 154/63 98 07/01/19 03:03 07/01/19 07:43 07/01/19 07:43 07/01/19 03:03 07/01/19 07:42 General appearance: Present: mild distress, well-nourished - EENT Eyes: Present: PERRL, EOM intact - Neck Neck: Present: supple, normal ROM - Respiratory Respiratory effort: normal Respiratory: bilateral: diminished, rhonchi, negative: rales, wheezing - Cardiovascular Rhythm: regular Heart Sounds: Present: S1 & S2 - Extremities Extremities: no ischemia, No edema - Abdominal General gastrointestinal: soft, non-tender, non-distended, normal bowel sounds - Integumentary Integumentary: Present: clear, warm - Psychiatric Psychiatric: appropriate mood/affect, cooperative - Neurologic Neurologic: moves all extremities Results - Labs CBC & Chem 7: 06/27/19 05:38 06/27/19 05:38 Labs: Laboratory Last Values WBC 14.3 K/mm3 (4.5-11.0) H 06/27/19 05:38 RBC 3.13 M/mm3 (3.65-5.03) L 06/27/19 05:38 Hgb 10.7 gm/dl (10.1-14.3) D 06/27/19 05:38 Hct 31.5 % (30.3-42.9) D 06/27/19 05:38 MCV 101 fl (79-97) H 06/27/19 05:38 MCH 34 pg (28-32) H 06/27/19 05:38 MCHC 34 % (30-34) 06/27/19 05:38 RDW 14.7 % (13.2-15.2) 06/27/19 05:38 Plt Count 185 K/mm3 (140-440) 06/27/19 05:38 Add Manual Diff Complete 06/27/19 05:38 Total Counted 100 06/27/19 05:38 Seg Neutrophils % Tele Rn 06/27/19 05:38 Seg Neuts % (Manual) 96.0 % (40.0-70.0) H 06/27/19 05:38 Band Neutrophils % 0 % 06/27/19 05:38 Lymphocytes % (Manual) 3.0 % (13.4-35.0) L 06/27/19 05:38 Reactive Lymphs % (Man) 0 % 06/27/19 05:38 Monocytes % (Manual) 0 % (0.0-7.3) 06/27/19 05:38 Eosinophils % (Manual) 0 % (0.0-4.3) 06/27/19 05:38 Basophils % (Manual) 0 % (0.0-1.8) 06/27/19 05:38 Metamyelocytes % 1.0 % 06/27/19 05:38 Myelocytes % 0 % 06/27/19 05:38 Promyelocytes % 0 % 06/27/19 05:38 Blast Cells % 0 % 06/27/19 05:38 Nucleated RBC % Not Reportable 06/27/19 05:38 Seg Neutrophils # Man 13.7 K/mm3 (1.8-7.7) H 06/27/19 05:38 Band Neutrophils # 0.0 K/mm3 06/27/19 05:38 Lymphocytes # (Manual) 0.4 K/mm3 (1.2-5.4) L 06/27/19 05:38 Abs React Lymphs (Man) 0.0 K/mm3 06/27/19 05:38 Monocytes # (Manual) 0.0 K/mm3 (0.0-0.8) 06/27/19 05:38 Eosinophils # (Manual) 0.0 K/mm3 (0.0-0.4) 06/27/19 05:38 Basophils # (Manual) 0.0 K/mm3 (0.0-0.1) 06/27/19 05:38 Metamyelocytes # 0.1 K/mm3 06/27/19 05:38 Myelocytes # 0.0 K/mm3 06/27/19 05:38 Promyelocytes # 0.0 K/mm3 06/27/19 05:38 Blast Cells # 0.0 K/mm3 06/27/19 05:38 WBC Morphology Not Reportable 06/27/19 05:38 Hypersegmented Neuts Not Reportable 06/27/19 05:38 Hyposegmented Neuts Not Reportable 06/27/19 05:38 Hypogranular Neuts Not Reportable 06/27/19 05:38 Smudge Cells Not Reportable 06/27/19 05:38 Toxic Granulation Not Reportable 06/27/19 05:38 Toxic Vacuolation Not Reportable 06/27/19 05:38 Dohle Bodies Not Reportable 06/27/19 05:38 Pelger-Huet Anomaly Not Reportable 06/27/19 05:38 Ty Rods Not Reportable 06/27/19 05:38 Platelet Estimate Consistent w auto 06/27/19 05:38 Clumped Platelets Not Reportable 06/27/19 05:38 Plt Clumps, EDTA Not Reportable 06/27/19 05:38 Large Platelets Not Reportable 06/27/19 05:38 Giant Platelets Not Reportable 06/27/19 05:38 Platelet Satelliting Not Reportable 06/27/19 05:38 Plt Morphology Comment Not Reportable 06/27/19 05:38 RBC Morphology Normal 06/27/19 05:38 Dimorphic RBCs Not Reportable 06/27/19 05:38 Polychromasia Not Reportable 06/27/19 05:38 Hypochromasia Not Reportable 06/27/19 05:38 Poikilocytosis Not Reportable 06/27/19 05:38 Anisocytosis Not Reportable 06/27/19 05:38 Microcytosis Not Reportable 06/27/19 05:38 Macrocytosis Not Reportable 06/27/19 05:38 Spherocytes Not Reportable 06/27/19 05:38 Pappenheimer Bodies Not Reportable 06/27/19 05:38 Sickle Cells Not Reportable 06/27/19 05:38 Target Cells Not Reportable 06/27/19 05:38 Tear Drop Cells Not Reportable 06/27/19 05:38 Ovalocytes Not Reportable 06/27/19 05:38 Helmet Cells Not Reportable 06/27/19 05:38 Sidhu-Jeannette Bodies Not Reportable 06/27/19 05:38 Bradley Rings Not Reportable 06/27/19 05:38 [place] Cells Not Reportable 06/27/19 05:38 Bite Cells Not Reportable 06/27/19 05:38 Crenated Cell Not Reportable 06/27/19 05:38 Elliptocytes Not Reportable 06/27/19 05:38 Acanthocytes (Spur) Not Reportable 06/27/19 05:38 Rouleaux Not Reportable 06/27/19 05:38 Hemoglobin C Crystals Not Reportable 06/27/19 05:38 Schistocytes Not Reportable 06/27/19 05:38 Malaria parasites Not Reportable 06/27/19 05:38 Maxwell Bodies Not Reportable 06/27/19 05:38 Hem Pathologist Commnt No 06/27/19 05:38 ABG pH 7.378 pH Units (7.350-7.450) 06/28/19 17:50 ABG pCO2 41.8 mm Hg 06/28/19 17:50 ABG pO2 55.7 mm Hg (80.0-90.0) L 06/28/19 17:50 ABG HCO3 24.1 mmol/L (20.0-26.0) 06/28/19 17:50 ABG O2 Saturation 88.5 % (95.0-99.0) L 06/28/19 17:50 ABG O2 Content 13.6 (0.0-44) 06/28/19 17:50 ABG Base Excess -1.1 mmol/L (-2.0-3.0) 06/28/19 17:50 ABG Hemoglobin 11.1 gm/dl (12.0-16.0) L 06/28/19 17:50 ABG Carboxyhemoglobin 1.3 % (0.0-5.0) 06/28/19 17:50 ABG Methemoglobin 0.6 % (0.0-1.5) 06/28/19 17:50 Oxyhemoglobin 86.8 % (95.0-99.0) L 06/28/19 17:50 FiO2 50 % 06/28/19 17:50 Sodium 139 mmol/L (137-145) 06/27/19 05:38 Potassium 3.5 mmol/L (3.6-5.0) L 06/27/19 05:38 Chloride 104.0 mmol/L (98-107) 06/27/19 05:38 Carbon Dioxide 23 mmol/L (22-30) 06/27/19 05:38 Anion Gap 16 mmol/L 06/27/19 05:38 BUN 9 mg/dL (7-17) 06/27/19 05:38 Creatinine 0.6 mg/dL (0.7-1.2) L 06/27/19 05:38 Estimated GFR > 60 ml/min 06/27/19 05:38 BUN/Creatinine Ratio 15 % 06/27/19 05:38 Glucose 137 mg/dL (65-100) H 06/27/19 05:38 Lactic Acid 2.90 mmol/L (0.7-2.0) H* 06/29/19 15:04 Calcium 7.5 mg/dL (8.4-10.2) L D 06/27/19 05:38 Magnesium 1.90 mg/dL (1.7-2.3) 06/27/19 05:38 Total Bilirubin 0.40 mg/dL (0.1-1.2) 06/26/19 05:43 AST 100 units/L (5-40) H 06/26/19 05:43 ALT 49 units/L (7-56) 06/26/19 05:43 Alkaline Phosphatase 54 units/L (35-129) 06/26/19 05:43 Troponin T < 0.010 ng/mL (0.00-0.029) 06/26/19 05:43 Total Protein 7.6 g/dL (6.3-8.2) 06/26/19 05:43 Albumin 4.1 g/dL (3.9-5) 06/26/19 05:43 Albumin/Globulin Ratio 1.2 % 06/26/19 05:43 Procalcitonin 2.12 ng/mL (<0.15) 06/29/19 15:04 TSH 0.939 mlU/mL (0.270-4.200) 06/26/19 12:47 Free T4 0.69 ng/dL (0.76-1.46) L 06/26/19 12:47 Thyroxine (T4) 3.9 ug/dL (4.0-12.0) L 06/26/19 12:47 Urine Color Straw (Yellow) 06/26/19 Unknown Urine Turbidity Clear (Clear) 06/26/19 Unknown Urine pH 6.0 (5.0-7.0) 06/26/19 Unknown Ur Specific [place] 1.006 (1.003-1.030) 06/26/19 Unknown Urine Protein <15 mg/dl mg/dL (Negative) 06/26/19 Unknown Urine Glucose (UA) Neg mg/dL (Negative) 06/26/19 Unknown Urine Ketones Neg mg/dL (Negative) 06/26/19 Unknown Urine Blood Neg (Negative) 06/26/19 Unknown Urine Nitrite Neg (Negative) 06/26/19 Unknown Urine Bilirubin Neg (Negative) 06/26/19 Unknown Urine Urobilinogen < 2.0 mg/dL (<2.0) 06/26/19 Unknown Ur Leukocyte Esterase Neg (Negative) 06/26/19 Unknown Urine WBC (Auto) 1.0 /HPF (0.0-6.0) 06/26/19 Unknown Urine RBC (Auto) 1.0 /HPF (0.0-6.0) 06/26/19 Unknown Urine Bacteria (Auto) 1+ /HPF (Negative) 06/26/19 Unknown Urine Mucus Few /HPF 06/26/19 Unknown Urine Opiates Screen Presumptive negative 06/26/19 Unknown Urine Methadone Screen Presumptive negative 06/26/19 Unknown Ur Barbiturates Screen Presumptive negative 06/26/19 Unknown Ur Phencyclidine Scrn Presumptive negative 06/26/19 Unknown Ur Amphetamines Screen Presumptive negative 06/26/19 Unknown U Benzodiazepines Scrn Presumptive negative 06/26/19 Unknown Urine Cocaine Screen Presumptive negative 06/26/19 Unknown U Marijuana (THC) Screen Presumptive negative 06/26/19 Unknown Drugs of Abuse Note Disclamer 06/26/19 Unknown Influenza A (Rapid) Negative (Negative) 06/27/19 03:00 Influenza B (Rapid) Negative (Negative) 06/27/19 03:00 Active Medications - Current Medications Current Medications: Generic Name Dose Route Start Last Admin Trade Name Freq PRN Reason Stop Dose Admin Acetaminophen 650 mg 06/26/19 09:47 Tylenol PO Q4H PRN Pain MILD(1-3)/Fever >100.5/CALLEJAS Acetaminophen/Hydrocodone Bitart 1 each 06/26/19 10:39 [place] 7.5/325 PO Q6H PRN Pain, Moderate (4-6) Albuterol 2.5 mg 06/27/19 14:12 Proventil IH Q4HRT PRN Shortness Of Breath Albuterol/Ipratropium 1 ampul 06/27/19 16:00 07/01/19 07:43 Duoneb *Not For Prn Use* IH Not Given Q6HRT PEPE Arformoterol Tartrate 15 mcg 06/27/19 20:00 07/01/19 07:43 Brovana Nebu IH 15 mcg Q12HRT PEPE Administration Budesonide 0.5 mg 06/27/19 20:00 07/01/19 07:42 Pulmicort IH 0.5 mg Q12HRT PEPE Administration Clonazepam 1 mg 06/26/19 23:00 06/30/19 22:06 Klonopin PO 1 mg QHS PEPE Administration Diltiazem HCl 60 mg 06/27/19 22:00 07/01/19 05:42 Cardizem PO 60 mg Q8HR PEPE Administration Enoxaparin Sodium 40 mg 06/26/19 22:00 06/30/19 21:48 Enoxaparin SUB-Q 40 mg QDAY@2200 PEPE Administration Ceftriaxone Sodium 1 gm in 50 mls @ 100 mls/hr 06/26/19 12:00 06/30/19 09:05 Rocephin/Ns 1 Gm/50 Ml IV 100 mls/hr Q24HR PEPE Administration Protocol Azithromycin 500 mg/ Sodium 250 mls @ 250 mls/hr 06/26/19 11:00 06/30/19 09:42 Chloride IV 250 mls/hr Q24HR PEPE Administration Protocol Sodium Chloride 1,000 mls @ 42 mls/hr 06/26/19 10:00 06/30/19 09:12 Nacl 0.9% 1000 Ml IV 75 mls/hr DIRECT PEPE Administration Vancomycin HCl 750 mg/ Sodium 265 mls @ 166.667 mls/hr 07/01/19 16:00 Chloride IV Q24H PEPE Levothyroxine Sodium 25 mcg 06/30/19 06:00 07/01/19 05:42 Synthroid PO 25 mcg DAILY@0600 PEPE Administration Methylprednisolone Sodium Succinate 60 mg 06/29/19 22:00 06/30/19 21:48 Solu-Medrol IV 60 mg Q12H PEPE Administration Miscellaneous Medication 1 tab 06/26/19 10:00 06/26/19 11:11 Methscopolamine [place] [Pamine] PO Not Given DAILY PEPE Ondansetron HCl 4 mg 06/26/19 09:47 Zofran IV Q8H PRN Nausea And Vomiting Sodium Chloride 10 ml 06/26/19 10:00 06/30/19 21:48 Sodium Chloride Flush Syringe 10 Ml IV 10 ml BID PEPE Administration Sodium Chloride 10 ml 06/26/19 09:47 06/28/19 04:28 Sodium Chloride Flush Syringe 10 Ml IV 10 ml PRN PRN Administration LINE FLUSH Nutrition/Malnutrition Assess - Dietary Evaluation Nutrition/Malnutrition Findings: Nutrition Notes Start: 06/30/19 12:08 Freq: Status: Active Protocol: Document 06/30/19 12:08 LM (Rec: 06/30/19 12:30 LM [id number]) Nutrition Notes Need for Assessment generated from: MD Order,[facility] [[email or web address]] Initial or Follow up Assessment Current Diagnosis Sepsis,Hypertension Other Pertinent Diagnosis hx of mouth cancer, pneumonia, hypothyroidism Current Diet Mechanical soft Labs/Tests Reviewed Pertinent Medications NaCl at 42 ml/hr Solumedrol Height 5 ft 4 in Weight 46.9 kg [place] Body Weight (kg) 54.54 BMI 17.7 Weight Status Emaciated Subjective/Other Information MD consult for malnutrition. Pt stated she has not been eating well due to hx of mouth cancer. Pt stated she has difficulty swallowing foods but not liquids. IMPORT DISPATCHER recommends pureed diet with thin liguids. Will order a pureed diet for pt. Pt stated she has always been small and has been losing wt her whole life. Pt stated that she believes she weighs 95 lb and her UBW is 105 lb ( pt currently weighs 103 lb). Observed clavical and deltoid wasting. Pt would like Ensure. Burn Absent Trauma Absent Difficulty In Swallowing,Chewing Current % PO Poor (25-49%) Minimum of two criteria Yes Energy Intake (non-severe) <75% Estimated Energy Requirement >7 days Muscle Mass Mild Depletion (non-severe) Reduced Fiberglass Product Tester Strength Measurably Reduced (severe) #1 Nutrition Diagnosis Malnutrition Etiology hx mouth cancer, difficulty swallowing As Evidenced by Signs and Symptoms pt with poor intakes, clavicle and deltoid muscle wasting, weak wind turbine erector strength Is patient on ventilator? No Is Patient Ambulatory and/or Out of Bed Yes REE-([place]-St. Jeor-ambulatory/OOB) [ 1292.200 NUTR.MSJOOB] Kcal/Kg value to use for calculation 32 Approximate Energy Requirements Using 1501 kcal/Kg Calculation Used for Recommendations Kcal/kg Additional Notes Protein: 56-70g (1.2-1.5g/kg) Fluid: 1 ml/kcal Nutrition Intervention Change Diet Order: pureed with thin liquids Add Supplement/Snack (indicate name/kcal Ensure enlive all flavors TID /protein ) Provides kCal: 1,050 Provides Protein (gm) 60 Goal #1 Meet at least 80% of energy and protein needs Goal #2 weight gain/maintenance Anticipated Discharge Needs: pureed diet with ONS TID Follow-Up By: 07/02/19 Additional Comments F/U for PO/ONS intakes
[2019-07-01] MEDS: cefTRIAXone/NS 1 GM/50 ML 1 GM/50 ML BAG IV SCH (10:07)
[2019-07-01] MEDS: methylPREDNISolone Sod Succinate 125 MG/2 ML INJ IV SCH ×2 (10:08→21:23)
[2019-07-01] MEDS: AZITHROMYCIN 500 MG in SODIUM CHLORIDE 0.9% 250ML 250 ML IV SCH (11:14)
--- NOTE | 2019-07-01 13:26 | Progress Note ---
Assessment and Plan Patient awake and resting on Vapotherm 30% with O2 saturation 93%. Patient is afebrile and has leukocytosis. Patient is on azithromycin, ceftriaxone, and vancomycin. ABGs from 06/28/2019 pH 7.38, pCO2 42, pO2 56, HCO3 24, O2 saturation 89%, FiO2 50% Chest CT from 06/27/2019 reported Moderate patchy airspace disease is identified throughout both lungs. The upper lobes and left lower lobe are most affected. There is no obvious mass given the infiltrate. Bilateral pneumonic infiltrates as described. Chest X-ray 06/26/2019 reported Patchy bilateral airspace disease is concerning for multifocal pneumonia. Follow-up is recommended. - Patient Problems (1) Acute hypoxemic respiratory failure Current Visit: Yes Status: Acute Plan to address problem: 1. Vapotherm FIO2 30% 2. Albuterol and atrovent aerosol treatments q 6 hrs PRN for shortness of breath 3. Continue Brovana and Budesonide 4. Continue IV solumedrol 5. Continue azithromycin, rocephin, and vancomycin 6. Continue Lovenox 7. Recommend GI prophylaxis (2) Multifocal pneumonia Current Visit: Yes Status: Acute Plan to address problem: 1. Vapotherm FIO2 30% 2. Albuterol and atrovent aerosol treatments q 6 hrs PRN for shortness of breath 3. Continue Brovana and Budesonide 4. Continue IV solumedrol 5. Continue azithromycin, rocephin, and vancomycin 6. Continue Lovenox 7. Recommend GI prophylaxis (3) HTN (hypertension) Current Visit: Yes Status: Chronic Plan to address problem: Management as per Primary Care Subjective Date of service: 07/01/19 Principal diagnosis: Ac hypoxemic resp failure; Bilateral pneumonia; DPLD / Pulm Fibrosis Interval history: Patient awake and resting on Vapotherm 30% with O2 saturation 93%. Patient is afebrile and has leukocytosis. Patient is on azithromycin, ceftriaxone, and vancomycin. ABGs from 06/28/2019 pH 7.38, pCO2 42, pO2 56, HCO3 24, O2 saturation 89%, FiO2 50% Chest CT from 06/27/2019 reported Moderate patchy airspace disease is identified throughout both lungs. The upper lobes and left lower lobe are most affected. There is no obvious mass given the infiltrate. Bilateral pneumonic infiltrates as described. Chest X-ray 06/26/2019 reported Patchy bilateral airspace disease is concerning for multifocal pneumonia. Follow-up is recommended. Objective Vital Signs - 12hr 07/01/19 07/01/19 07/01/19 03:03 03:13 07:24 Temperature 98.3 F 98.8 F Pulse Rate 93 H 89 Pulse Rate [ Anterior Bilateral Throughout] Respiratory 20 20 Rate Respiratory Rate [Anterior Bilateral Throughout] Blood Pressure 154/63 143/61 O2 Sat by Pulse 100 96 Oximetry 07/01/19 07/01/19 07:42 07:43 Temperature Pulse Rate Pulse Rate [ 82 Anterior Bilateral Throughout] Respiratory Rate Respiratory 20 Rate [Anterior Bilateral Throughout] Blood Pressure O2 Sat by Pulse 98 Oximetry Constitutional: no acute distress, other (eldertly looking thin AAF, with mildly increased respiratory effort at rest) Eyes: non-icteric ENT: oropharynx moist, other (s/p oral surgery) Neck: supple, no lymphadenopathy, no JVD Effort: mildly labored Ascultation: Bilateral: diminished breath sounds, rhonchi Percussion: Bilateral: not dull Cardiovascular: regular rate and rhythm Gastrointestinal: normoactive bowel sounds, soft, non-tender, non-distended Integumentary: normal Extremities: no cyanosis, no edema, pulses normal, no ischemia or petechiae Neurologic: normal mental status, non-focal exam, pupils equal and round, CN II- XII normal Psychiatric: mood appropriate, affect normal CBC and BMP: 06/27/19 05:38 06/27/19 05:38 ABG, PT/INR, D-dimer: ABG ABG pH 7.378 pH Units (7.350-7.450) 06/28/19 17:50 ABG pCO2 41.8 mm Hg 06/28/19 17:50 ABG pO2 55.7 mm Hg (80.0-90.0) L 06/28/19 17:50 ABG O2 Saturation 88.5 % (95.0-99.0) L 06/28/19 17:50 Abnormal lab findings: Abnormal Labs 06/26/19 06/26/19 06/26/19 05:43 05:43 05:43 WBC RBC MCV 100 H MCH 35 H MCHC 35 H Seg Neuts % (Manual) 87.0 H Lymphocytes % (Manual) 6.0 L Seg Neutrophils # Man 9.0 H Lymphocytes # (Manual) 0.6 L ABG pO2 ABG O2 Saturation ABG Hemoglobin Oxyhemoglobin Potassium Chloride 95.9 L Creatinine Glucose 153 H Lactic Acid 6.00 H* Calcium Magnesium AST 100 H Free T4 Thyroxine (T4) 06/26/19 06/26/19 06/26/19 05:43 12:47 12:47 WBC RBC MCV MCH MCHC Seg Neuts % (Manual) Lymphocytes % (Manual) Seg Neutrophils # Man Lymphocytes # (Manual) ABG pO2 ABG O2 Saturation ABG Hemoglobin Oxyhemoglobin Potassium Chloride Creatinine Glucose Lactic Acid 2.20 H* Calcium Magnesium 1.10 L AST Free T4 0.69 L Thyroxine (T4) 06/26/19 06/27/19 06/27/19 12:47 05:38 05:38 WBC 14.3 H RBC 3.13 L MCV 101 H MCH 34 H MCHC Seg Neuts % (Manual) 96.0 H Lymphocytes % (Manual) 3.0 L Seg Neutrophils # Man 13.7 H Lymphocytes # (Manual) 0.4 L ABG pO2 ABG O2 Saturation ABG Hemoglobin Oxyhemoglobin Potassium 3.5 L Chloride Creatinine 0.6 L Glucose 137 H Lactic Acid Calcium 7.5 L D Magnesium AST Free T4 Thyroxine (T4) 3.9 L 06/28/19 06/29/19 17:50 15:04 WBC RBC MCV MCH MCHC Seg Neuts % (Manual) Lymphocytes % (Manual) Seg Neutrophils # Man Lymphocytes # (Manual) ABG pO2 55.7 L ABG O2 Saturation 88.5 L ABG Hemoglobin 11.1 L Oxyhemoglobin 86.8 L Potassium Chloride Creatinine Glucose Lactic Acid 2.90 H* Calcium Magnesium AST Free T4 Thyroxine (T4) Allied health notes reviewed: nursing
--- NOTE | 2019-07-01 13:59 | Progress Note ---
Assessment and Plan Cultures: 06/26/2019 blood culture: No growth Influenza PCR: negative A/P: 68-year-old female with hypertension, prior oral cancer status post extensive surgery including mandibulectomy and reconstruction, radiation therapy many years ago now admitted with: #Bilateral pneumonia causing acute respiratory failure #Fever on admission #H/O oral cancer status post extensive surgery including mandibulectomy and reconstruction, radiation therapy many years ago Recs: continue IV Vancomycin Day 2, Ceftriaxone Day 5 completed 5 days of azithromycin procalcitonin is improving Bong Covarrubias MD, FACP [facility] ([facility]) C: [phone] O: [phone] F: [phone] Subjective Date of service: 07/01/19 Principal diagnosis: Ac hypoxemic resp failure; Bilateral pneumonia; DPLD / Pulm Fibrosis Interval history: No fever. Feels her breathing slowly improving. Cough still present, unable to bring up sputum. Objective - Exam Narrative Exam: Physical Exam: Constitutional: Alert, cooperative. No acute distress. Cachectic Head, Ears, Nose: Normocephalic, atraumatic. External ears, nose normal Eyes: Conjunctivae/corneas clear. No icterus. No ptosis. Neck: Supple, no meningeal signs Oral: reconstruction, scar +, no thrush Cardiovascular: S1, S2 normal. Respiratory: few rhonchi, mainly clear GI: Soft, non-tender; bowel sounds normal. No peritoneal signs Musculoskeletal: No pedal edema, no cyanosis. Skin: No rash or abscess Hem/Lymphatic: No palpable cervical or supraclavicular nodes. No lymphangitis Psych: Mood ok. Affect normal Neurological: Awake, alert, oriented. No gross abnormality - Constitutional Vitals: Vital Signs Temp Pulse Resp BP Pulse Ox 98.8 F 82 20 143/61 98 07/01/19 07:24 07/01/19 07:43 07/01/19 07:43 07/01/19 07:24 07/01/19 07:42 Temperature -Last 24 Hours Temperature 98.8 F Temperature 98.3 F Temperature 98.3 F - Labs CBC & Chem 7: 06/27/19 05:38 06/27/19 05:38
[2019-07-01] MEDS ORDERED: VANCOMYCIN 750 MG in SODIUM CHLORIDE 0.9% 250ML 250 ML IV SCH (16:00)
[2019-07-01 16:15] LABS: MRSA PCR Negative (Negative)
[2019-07-01] MEDS: VANCOMYCIN/NS 1 GM/250 ML 1 GM/250 ML BAG IV SCH (18:55)
[2019-07-01] MEDS: HYDROcodone/ACETAMINOPHEN 7.5-325MG TAB PO PRN (19:35)
[2019-07-01] MEDS: clonazePAM 0.5 MG TAB PO SCH (21:23)
[2019-07-01] MEDS: ENOXAPARIN 40 MG/0.4 ML INJ SUB-Q SCH (21:23)
[2019-07-01] MEDS: SODIUM CHLORIDE 0.9% 1000 ML 1,000 ML IV SCH (21:23)
[2019-07-02] MEDS: IPRATROPIUM/ALBUTEROL SULFATE 3 ML AMPUL.NEB IH SCH ×4 (02:08→21:03)
[2019-07-02] MEDS: LEVOTHYROXINE 25 MCG TAB PO SCH (05:59)
[2019-07-02] MEDS: dilTIAZem 60 MG TAB PO SCH ×3 (05:59→22:22)
[2019-07-02] MEDS: HYDROcodone/ACETAMINOPHEN 7.5-325MG TAB PO PRN (06:01)
[2019-07-02] MEDS: BUDESONIDE 0.5 MG/2 ML NEBU IH SCH ×2 (08:40→21:03)
[2019-07-02] MEDS: ARFORMOTEROL 15 MCG/2 ML NEBU IH SCH ×2 (08:40→21:03)
[2019-07-02] MEDS: cefTRIAXone/NS 1 GM/50 ML 1 GM/50 ML BAG IV SCH (09:01)
[2019-07-02] MEDS: methylPREDNISolone Sod Succinate 125 MG/2 ML INJ IV SCH ×2 (09:01→23:14)
--- NOTE | 2019-07-02 09:42 | Progress Note ---
Assessment and Plan Patient awake and resting on Vapotherm 30% with O2 saturation 91%. Patient states breathing slightly better today. Patient is afebrile and has leukocytosis. Patient is on ceftriaxone, and vancomycin. ABGs from 06/28/2019 pH 7.38, pCO2 42, pO2 56, HCO3 24, O2 saturation 89%, FiO2 50% Chest CT from 06/27/2019 reported Moderate patchy airspace disease is identified throughout both lungs. The upper lobes and left lower lobe are most affected. There is no obvious mass given the infiltrate. Bilateral pneumonic infiltrates as described. Chest X-ray 06/26/2019 reported Patchy bilateral airspace disease is concerning for multifocal pneumonia. Follow-up is recommended. Repeat ABGs on room air. Repeat CXR. - Patient Problems (1) Acute hypoxemic respiratory failure Current Visit: Yes Status: Acute Plan to address problem: 1. Vapotherm FIO2 30% 2. Albuterol and atrovent aerosol treatments q 6 hrs PRN for shortness of breath 3. Continue Brovana and Budesonide 4. Continue IV solumedrol 5. Continue rocephin, and vancomycin 6. Continue Lovenox 7. Recommend GI prophylaxis 8. Repeat ABGs on room air 9. Repeat Chest X-ray (2) Multifocal pneumonia Current Visit: Yes Status: Acute Plan to address problem: 1. Vapotherm FIO2 30% 2. Albuterol and atrovent aerosol treatments q 6 hrs PRN for shortness of breath 3. Continue Brovana and Budesonide 4. Continue IV solumedrol 5. Continue rocephin, and vancomycin 6. Continue Lovenox 7. Recommend GI prophylaxis 8. Repeat ABGs on room air 9. Repeat Chest X-ray (3) HTN (hypertension) Current Visit: Yes Status: Chronic Plan to address problem: Management as per Primary Care Subjective Date of service: 07/02/19 Principal diagnosis: Ac hypoxemic resp failure; Bilateral pneumonia; DPLD / Pulm Fibrosis Interval history: Patient awake and resting on Vapotherm 30% with O2 saturation 91%. Patient states breathing slightly better today. Patient is afebrile and has leukocytosis. Patient is on ceftriaxone, and vancomycin. ABGs from 06/28/2019 pH 7.38, pCO2 42, pO2 56, HCO3 24, O2 saturation 89%, FiO2 50% Chest CT from 06/27/2019 reported Moderate patchy airspace disease is identified throughout both lungs. The upper lobes and left lower lobe are most affected. There is no obvious mass given the infiltrate. Bilateral pneumonic infiltrates as described. Chest X-ray 06/26/2019 reported Patchy bilateral airspace disease is concerning for multifocal pneumonia. Follow-up is recommended. Repeat ABGs on room air. Repeat CXR Objective Vital Signs - 12hr 07/02/19 07/02/19 07/02/19 02:03 02:04 02:08 Temperature 97.3 F L Pulse Rate 90 82 Pulse Rate [ 102 H Anterior Bilateral Throughout] Respiratory 20 Rate Respiratory 20 Rate [Anterior Bilateral Throughout] Blood Pressure 144/54 O2 Sat by Pulse 85 91 Oximetry 07/02/19 07/02/19 02:10 07:38 Temperature 98.5 F Pulse Rate 71 Pulse Rate [ Anterior Bilateral Throughout] Respiratory 22 Rate Respiratory Rate [Anterior Bilateral Throughout] Blood Pressure 128/59 O2 Sat by Pulse 98 95 Oximetry Constitutional: no acute distress, other (eldertly looking thin AAF, with mildly increased respiratory effort at rest) Eyes: non-icteric ENT: oropharynx moist, other (s/p oral surgery) Neck: supple, no lymphadenopathy, no JVD Effort: mildly labored Ascultation: Bilateral: diminished breath sounds, rhonchi Percussion: Bilateral: not dull Cardiovascular: regular rate and rhythm Gastrointestinal: normoactive bowel sounds, soft, non-tender, non-distended Integumentary: normal Extremities: no cyanosis, no edema, pulses normal, no ischemia or petechiae Neurologic: normal mental status, non-focal exam, pupils equal and round, CN II- XII normal Psychiatric: mood appropriate, affect normal CBC and BMP: 06/27/19 05:38 06/27/19 05:38 ABG, PT/INR, D-dimer: ABG ABG pH 7.378 pH Units (7.350-7.450) 06/28/19 17:50 ABG pCO2 41.8 mm Hg 06/28/19 17:50 ABG pO2 55.7 mm Hg (80.0-90.0) L 06/28/19 17:50 ABG O2 Saturation 88.5 % (95.0-99.0) L 06/28/19 17:50 Abnormal lab findings: Abnormal Labs 06/26/19 06/26/19 06/26/19 05:43 05:43 05:43 WBC RBC MCV 100 H MCH 35 H MCHC 35 H Seg Neuts % (Manual) 87.0 H Lymphocytes % (Manual) 6.0 L Seg Neutrophils # Man 9.0 H Lymphocytes # (Manual) 0.6 L ABG pO2 ABG O2 Saturation ABG Hemoglobin Oxyhemoglobin Potassium Chloride 95.9 L Creatinine Glucose 153 H Lactic Acid 6.00 H* Calcium Magnesium AST 100 H Free T4 Thyroxine (T4) 06/26/19 06/26/19 06/26/19 05:43 12:47 12:47 WBC RBC MCV MCH MCHC Seg Neuts % (Manual) Lymphocytes % (Manual) Seg Neutrophils # Man Lymphocytes # (Manual) ABG pO2 ABG O2 Saturation ABG Hemoglobin Oxyhemoglobin Potassium Chloride Creatinine Glucose Lactic Acid 2.20 H* Calcium Magnesium 1.10 L AST Free T4 0.69 L Thyroxine (T4) 06/26/19 06/27/19 06/27/19 12:47 05:38 05:38 WBC 14.3 H RBC 3.13 L MCV 101 H MCH 34 H MCHC Seg Neuts % (Manual) 96.0 H Lymphocytes % (Manual) 3.0 L Seg Neutrophils # Man 13.7 H Lymphocytes # (Manual) 0.4 L ABG pO2 ABG O2 Saturation ABG Hemoglobin Oxyhemoglobin Potassium 3.5 L Chloride Creatinine 0.6 L Glucose 137 H Lactic Acid Calcium 7.5 L D Magnesium AST Free T4 Thyroxine (T4) 3.9 L 06/28/19 06/29/19 17:50 15:04 WBC RBC MCV MCH MCHC Seg Neuts % (Manual) Lymphocytes % (Manual) Seg Neutrophils # Man Lymphocytes # (Manual) ABG pO2 55.7 L ABG O2 Saturation 88.5 L ABG Hemoglobin 11.1 L Oxyhemoglobin 86.8 L Potassium Chloride Creatinine Glucose Lactic Acid 2.90 H* Calcium Magnesium AST Free T4 Thyroxine (T4) Allied health notes reviewed: nursing
--- NOTE | 2019-07-02 14:02 | Progress Note ---
Assessment and Plan Cultures: 06/26/2019 blood culture: No growth Influenza PCR: negative 06/30/2019 sputum culture: no growth in 24 hours A/P: 68-year-old female with hypertension, prior oral cancer status post extensive surgery including mandibulectomy and reconstruction, radiation therapy many years ago now admitted with: #Bilateral pneumonia causing acute respiratory failure: remains on oxygen. Continue empiric antibiotics. #Fever on admission #H/O oral cancer status post extensive surgery including mandibulectomy and reconstruction, radiation therapy many years ago Recs: continue IV Vancomycin Day 3, Ceftriaxone Day 6 recheck CBC ordered for AM Bong Covarrubias MD, FACP [facility] C: [phone] O: [phone] F: [phone] Subjective Date of service: 07/02/19 Principal diagnosis: Ac hypoxemic resp failure; Bilateral pneumonia; DPLD / Pulm Fibrosis Interval history: no fever. Still short of breath requiring oxygen. No nausea, vomiting. No diarrhea. Objective - Exam Narrative Exam: Physical Exam: Constitutional: Alert, cooperative. No acute distress. Cachectic Head, Ears, Nose: Normocephalic, atraumatic. External ears, nose normal Eyes: Conjunctivae/corneas clear. No icterus. No ptosis. Neck: Supple, no meningeal signs Oral: reconstruction, scar +, no thrush Cardiovascular: S1, S2 normal. Respiratory: few rhonchi bilaterally GI: Soft, non-tender; bowel sounds normal. No peritoneal signs Musculoskeletal: No pedal edema, no cyanosis. Skin: No rash or abscess Hem/Lymphatic: No palpable cervical or supraclavicular nodes. No lymphangitis Psych: Mood ok. Affect normal Neurological: Awake, alert, oriented. No gross abnormality - Constitutional Vitals: Vital Signs Temp Pulse Resp BP Pulse Ox 98.5 F 71 22 128/59 95 07/02/19 07:38 07/02/19 07:38 07/02/19 07:38 07/02/19 07:38 07/02/19 07:38 Temperature -Last 24 Hours Temperature 98.5 F Temperature 97.3 F Temperature 99.6 F Temperature 98.0 F - Labs CBC & Chem 7: 06/27/19 05:38 06/27/19 05:38
[2019-07-02] MEDS: VANCOMYCIN/NS 1 GM/250 ML 1 GM/250 ML BAG IV SCH (16:26)
--- NOTE | 2019-07-02 19:47 | Progress Note ---
Assessment and Plan Assessment and plan: 68-year-old woman who was in the hospital with cough sob and palpitations. Noted to have bilateral pneumonia ID pulmonary evaluated on multiple antibiotics Mild improvement of symptoms, continues to have shortness of breath and cough intermittent Bilateral pneumonia/sepsis? Continue antibiotics Vanco Rocephin and Zithromax. ID following Pulmonary recommendations noted and appreciated Acute hypoxic respiratory failure On high flow oxygen CT chest consistent with diffuse proliferative disease, . Given history of oral cancer forensic toxicologist would like to rule out mets Flu negative,Pulmfollowing Copd exacerbation May have obstructive component to lung disease, continue empiric steroids and nebs. Multifocal pneumonia/sepsis? Continue empiric antibiotics. Per forensic toxicologist presentation is not consistent with pneumonia. ID consult, may benefit from [facility]. Hypokalemia Repleted,f/u electrolytes Hypomagnesemia Repleted Hypothyroidism, new onset low-dose Synthroid Hypertension Optimize meds. Mild to moderate malnutrition; dietitian consult, continue Ensure shakes DVT prophylaxis; lovenox Surveyor Geodetic recommendations noted and appreciated Plan of care reviewed with the patient and her nurse History Interval history: Patient seen and examined medical records reviewed Patient feels slightly better today still has some cough and congestion Requiring high flow oxygen, unable to wean Patient is alert and awake Vital signs reviewed Hospitalist Physical - Constitutional Vitals: Temp Pulse Resp BP Pulse Ox 99.0 F 95 H 22 154/66 96 07/02/19 13:53 07/02/19 13:53 07/02/19 07:38 07/02/19 13:53 07/02/19 13:53 General appearance: Present: mild distress, well-nourished - EENT Eyes: Present: PERRL, EOM intact - Neck Neck: Present: supple, normal ROM - Respiratory Respiratory effort: normal Respiratory: bilateral: diminished, rhonchi, negative: rales, wheezing - Cardiovascular Rhythm: regular Heart Sounds: Present: S1 & S2 - Extremities Extremities: no ischemia, No edema - Abdominal General gastrointestinal: soft, non-tender, non-distended, normal bowel sounds - Integumentary Integumentary: Present: clear, warm - Psychiatric Psychiatric: appropriate mood/affect, cooperative - Neurologic Neurologic: moves all extremities Results - Labs CBC & Chem 7: 06/27/19 05:38 06/27/19 05:38 Labs: Laboratory Last Values WBC 14.3 K/mm3 (4.5-11.0) H 06/27/19 05:38 RBC 3.13 M/mm3 (3.65-5.03) L 06/27/19 05:38 Hgb 10.7 gm/dl (10.1-14.3) D 06/27/19 05:38 Hct 31.5 % (30.3-42.9) D 06/27/19 05:38 MCV 101 fl (79-97) H 06/27/19 05:38 MCH 34 pg (28-32) H 06/27/19 05:38 MCHC 34 % (30-34) 06/27/19 05:38 RDW 14.7 % (13.2-15.2) 06/27/19 05:38 Plt Count 185 K/mm3 (140-440) 06/27/19 05:38 Add Manual Diff Complete 06/27/19 05:38 Total Counted 100 06/27/19 05:38 Seg Neutrophils % Electrostatic Painter 06/27/19 05:38 Seg Neuts % (Manual) 96.0 % (40.0-70.0) H 06/27/19 05:38 Band Neutrophils % 0 % 06/27/19 05:38 Lymphocytes % (Manual) 3.0 % (13.4-35.0) L 06/27/19 05:38 Reactive Lymphs % (Man) 0 % 06/27/19 05:38 Monocytes % (Manual) 0 % (0.0-7.3) 06/27/19 05:38 Eosinophils % (Manual) 0 % (0.0-4.3) 06/27/19 05:38 Basophils % (Manual) 0 % (0.0-1.8) 06/27/19 05:38 Metamyelocytes % 1.0 % 06/27/19 05:38 Myelocytes % 0 % 06/27/19 05:38 Promyelocytes % 0 % 06/27/19 05:38 Blast Cells % 0 % 06/27/19 05:38 Nucleated RBC % Not Reportable 06/27/19 05:38 Seg Neutrophils # Man 13.7 K/mm3 (1.8-7.7) H 06/27/19 05:38 Band Neutrophils # 0.0 K/mm3 06/27/19 05:38 Lymphocytes # (Manual) 0.4 K/mm3 (1.2-5.4) L 06/27/19 05:38 Abs React Lymphs (Man) 0.0 K/mm3 06/27/19 05:38 Monocytes # (Manual) 0.0 K/mm3 (0.0-0.8) 06/27/19 05:38 Eosinophils # (Manual) 0.0 K/mm3 (0.0-0.4) 06/27/19 05:38 Basophils # (Manual) 0.0 K/mm3 (0.0-0.1) 06/27/19 05:38 Metamyelocytes # 0.1 K/mm3 06/27/19 05:38 Myelocytes # 0.0 K/mm3 06/27/19 05:38 Promyelocytes # 0.0 K/mm3 06/27/19 05:38 Blast Cells # 0.0 K/mm3 06/27/19 05:38 WBC Morphology Not Reportable 06/27/19 05:38 Hypersegmented Neuts Not Reportable 06/27/19 05:38 Hyposegmented Neuts Not Reportable 06/27/19 05:38 Hypogranular Neuts Not Reportable 06/27/19 05:38 Smudge Cells Not Reportable 06/27/19 05:38 Toxic Granulation Not Reportable 06/27/19 05:38 Toxic Vacuolation Not Reportable 06/27/19 05:38 Dohle Bodies Not Reportable 06/27/19 05:38 Pelger-Huet Anomaly Not Reportable 06/27/19 05:38 Ty Rods Not Reportable 06/27/19 05:38 Platelet Estimate Consistent w auto 06/27/19 05:38 Clumped Platelets Not Reportable 06/27/19 05:38 Plt Clumps, EDTA Not Reportable 06/27/19 05:38 Large Platelets Not Reportable 06/27/19 05:38 Giant Platelets Not Reportable 06/27/19 05:38 Platelet Satelliting Not Reportable 06/27/19 05:38 Plt Morphology Comment Not Reportable 06/27/19 05:38 RBC Morphology Normal 06/27/19 05:38 Dimorphic RBCs Not Reportable 06/27/19 05:38 Polychromasia Not Reportable 06/27/19 05:38 Hypochromasia Not Reportable 06/27/19 05:38 Poikilocytosis Not Reportable 06/27/19 05:38 Anisocytosis Not Reportable 06/27/19 05:38 Microcytosis Not Reportable 06/27/19 05:38 Macrocytosis Not Reportable 06/27/19 05:38 Spherocytes Not Reportable 06/27/19 05:38 Pappenheimer Bodies Not Reportable 06/27/19 05:38 Sickle Cells Not Reportable 06/27/19 05:38 Target Cells Not Reportable 06/27/19 05:38 Tear Drop Cells Not Reportable 06/27/19 05:38 Ovalocytes Not Reportable 06/27/19 05:38 Helmet Cells Not Reportable 06/27/19 05:38 Sidhu-Nicasio Bodies Not Reportable 06/27/19 05:38 [place] Rings Not Reportable 06/27/19 05:38 [place] Cells Not Reportable 06/27/19 05:38 Bite Cells Not Reportable 06/27/19 05:38 Crenated Cell Not Reportable 06/27/19 05:38 Elliptocytes Not Reportable 06/27/19 05:38 Acanthocytes (Spur) Not Reportable 06/27/19 05:38 Rouleaux Not Reportable 06/27/19 05:38 Hemoglobin C Crystals Not Reportable 06/27/19 05:38 Schistocytes Not Reportable 06/27/19 05:38 Malaria parasites Not Reportable 06/27/19 05:38 [place] Bodies Not Reportable 06/27/19 05:38 Hem Pathologist Commnt No 06/27/19 05:38 ABG pH 7.378 pH Units (7.350-7.450) 06/28/19 17:50 ABG pCO2 41.8 mm Hg 06/28/19 17:50 ABG pO2 55.7 mm Hg (80.0-90.0) L 06/28/19 17:50 ABG HCO3 24.1 mmol/L (20.0-26.0) 06/28/19 17:50 ABG O2 Saturation 88.5 % (95.0-99.0) L 06/28/19 17:50 ABG O2 Content 13.6 (0.0-44) 06/28/19 17:50 ABG Base Excess -1.1 mmol/L (-2.0-3.0) 06/28/19 17:50 ABG Hemoglobin 11.1 gm/dl (12.0-16.0) L 06/28/19 17:50 ABG Carboxyhemoglobin 1.3 % (0.0-5.0) 06/28/19 17:50 ABG Methemoglobin 0.6 % (0.0-1.5) 06/28/19 17:50 Oxyhemoglobin 86.8 % (95.0-99.0) L 06/28/19 17:50 FiO2 50 % 06/28/19 17:50 Sodium 139 mmol/L (137-145) 06/27/19 05:38 Potassium 3.5 mmol/L (3.6-5.0) L 06/27/19 05:38 Chloride 104.0 mmol/L (98-107) 06/27/19 05:38 Carbon Dioxide 23 mmol/L (22-30) 06/27/19 05:38 Anion Gap 16 mmol/L 06/27/19 05:38 BUN 9 mg/dL (7-17) 06/27/19 05:38 Creatinine 0.6 mg/dL (0.7-1.2) L 06/27/19 05:38 Estimated GFR > 60 ml/min 06/27/19 05:38 BUN/Creatinine Ratio 15 % 06/27/19 05:38 Glucose 137 mg/dL (65-100) H 06/27/19 05:38 Lactic Acid 2.90 mmol/L (0.7-2.0) H* 06/29/19 15:04 Calcium 7.5 mg/dL (8.4-10.2) L D 06/27/19 05:38 Magnesium 1.90 mg/dL (1.7-2.3) 06/27/19 05:38 Total Bilirubin 0.40 mg/dL (0.1-1.2) 06/26/19 05:43 AST 100 units/L (5-40) H 06/26/19 05:43 ALT 49 units/L (7-56) 06/26/19 05:43 Alkaline Phosphatase 54 units/L (35-129) 06/26/19 05:43 Troponin T < 0.010 ng/mL (0.00-0.029) 06/26/19 05:43 Total Protein 7.6 g/dL (6.3-8.2) 06/26/19 05:43 Albumin 4.1 g/dL (3.9-5) 06/26/19 05:43 Albumin/Globulin Ratio 1.2 % 06/26/19 05:43 Procalcitonin 0.90 ng/mL (<0.15) 07/01/19 04:30 TSH 0.939 mlU/mL (0.270-4.200) 06/26/19 12:47 Free T4 0.69 ng/dL (0.76-1.46) L 06/26/19 12:47 Thyroxine (T4) 3.9 ug/dL (4.0-12.0) L 06/26/19 12:47 Urine Color Straw (Yellow) 06/26/19 Unknown Urine Turbidity Clear (Clear) 06/26/19 Unknown Urine pH 6.0 (5.0-7.0) 06/26/19 Unknown Ur Specific [place] 1.006 (1.003-1.030) 06/26/19 Unknown Urine Protein <15 mg/dl mg/dL (Negative) 06/26/19 Unknown Urine Glucose (UA) Neg mg/dL (Negative) 06/26/19 Unknown Urine Ketones Neg mg/dL (Negative) 06/26/19 Unknown Urine Blood Neg (Negative) 06/26/19 Unknown Urine Nitrite Neg (Negative) 06/26/19 Unknown Urine Bilirubin Neg (Negative) 06/26/19 Unknown Urine Urobilinogen < 2.0 mg/dL (<2.0) 06/26/19 Unknown Ur Leukocyte Esterase Neg (Negative) 06/26/19 Unknown Urine WBC (Auto) 1.0 /HPF (0.0-6.0) 06/26/19 Unknown Urine RBC (Auto) 1.0 /HPF (0.0-6.0) 06/26/19 Unknown Urine Bacteria (Auto) 1+ /HPF (Negative) 06/26/19 Unknown Urine Mucus Few /HPF 06/26/19 Unknown Nasal Screen MRSA (PCR) Negative (Negative) 06/30/19 Unknown Vancomycin Trough 8.3 ug/mL (5.0-20.0) 07/02/19 14:33 Urine Opiates Screen Presumptive negative 06/26/19 Unknown Urine Methadone Screen Presumptive negative 06/26/19 Unknown Ur Barbiturates Screen Presumptive negative 06/26/19 Unknown Ur Phencyclidine Scrn Presumptive negative 06/26/19 Unknown Ur Amphetamines Screen Presumptive negative 06/26/19 Unknown U Benzodiazepines Scrn Presumptive negative 06/26/19 Unknown Urine Cocaine Screen Presumptive negative 06/26/19 Unknown U Marijuana (THC) Screen Presumptive negative 06/26/19 Unknown Drugs of Abuse Note Disclamer 06/26/19 Unknown Influenza A (Rapid) Negative (Negative) 06/27/19 03:00 Influenza A (RT-PCR) Negative (Negative) 06/30/19 Unknown Influenza B (Rapid) Negative (Negative) 06/27/19 03:00 Influenza B (RT-PCR) Negative (Negative) 06/30/19 Unknown Active Medications - Current Medications Current Medications: Generic Name Dose Route Start Last Admin Trade Name Freq PRN Reason Stop Dose Admin Acetaminophen 650 mg 06/26/19 09:47 Tylenol PO Q4H PRN Pain MILD(1-3)/Fever >100.5/CALLEJAS Acetaminophen/Hydrocodone Bitart 1 each 06/26/19 10:39 07/02/19 06:01 Heiskell 7.5/325 PO 1 each Q6H PRN Administration Pain, Moderate (4-6) Albuterol 2.5 mg 06/27/19 14:12 Proventil IH Q4HRT PRN Shortness Of Breath Albuterol/Ipratropium 1 ampul 06/27/19 16:00 07/02/19 15:26 Duoneb *Not For Prn Use* IH 1 ampul Q6HRT PEPE Administration Arformoterol Tartrate 15 mcg 06/27/19 20:00 07/02/19 08:40 Brovana Nebu IH 15 mcg Q12HRT PEPE Administration Budesonide 0.5 mg 06/27/19 20:00 07/02/19 08:40 Pulmicort IH 0.5 mg Q12HRT PEPE Administration Clonazepam 1 mg 06/26/19 23:00 07/01/19 21:23 Klonopin PO 1 mg QHS PEPE Administration Diltiazem HCl 60 mg 06/27/19 22:00 07/02/19 16:26 Cardizem PO 60 mg Q8HR PEPE Administration Enoxaparin Sodium 40 mg 06/26/19 22:00 07/01/19 21:23 Enoxaparin SUB-Q 40 mg QDAY@2200 PEPE Administration Ceftriaxone Sodium 1 gm in 50 mls @ 100 mls/hr 06/26/19 12:00 07/02/19 09:01 Rocephin/Ns 1 Gm/50 Ml IV 100 mls/hr Q24HR PEPE Administration Protocol Sodium Chloride 1,000 mls @ 42 mls/hr 06/26/19 10:00 07/01/19 21:23 Nacl 0.9% 1000 Ml IV 75 mls/hr DIRECT PEPE Administration Vancomycin HCl 1 gm in 250 mls @ 167.007 mls/hr 07/01/19 16:00 07/02/19 16:26 Vancomycin/Ns 1 Gm/250 Ml IV 167.007 mls/hr Q24HR@1600 PEPE Administration Levothyroxine Sodium 25 mcg 06/30/19 06:00 07/02/19 05:59 Synthroid PO 25 mcg DAILY@0600 PEPE Administration Methylprednisolone Sodium Succinate 60 mg 06/29/19 22:00 07/02/19 09:01 Solu-Medrol IV 60 mg Q12H PEPE Administration Miscellaneous Medication 1 tab 06/26/19 10:00 06/26/19 11:11 Methscopolamine [place] [Pamine] PO Not Given DAILY PEPE Ondansetron HCl 4 mg 06/26/19 09:47 Zofran IV Q8H PRN Nausea And Vomiting Sodium Chloride 10 ml 06/26/19 10:00 07/02/19 09:01 Sodium Chloride Flush Syringe 10 Ml IV 10 ml BID PEPE Administration Sodium Chloride 10 ml 06/26/19 09:47 06/28/19 04:28 Sodium Chloride Flush Syringe 10 Ml IV 10 ml PRN PRN Administration LINE FLUSH Nutrition/Malnutrition Assess - Dietary Evaluation Nutrition/Malnutrition Findings: Nutrition Notes Start: 06/30/19 12:08 Freq: Status: Active Protocol: Document 07/02/19 09:53 BERT (Rec: 07/02/19 10:01 BERT [id number]) Co-Sign 07/02/19 09:53 LP Nutrition Notes Initial or Follow up Reassessment Current Diagnosis Sepsis,Hypertension Other Pertinent Diagnosis hx of mouth cancer, pneumonia, hypothyroidism Current Diet Pureed Labs/Tests BG 137 Pertinent Medications Solu-Medrol NaCl at 42 ml/hr Height 5 ft 4 in Weight 50.4 kg [place] Body Weight (kg) 54.54 BMI 19.1 Weight change and time frame Wt change noted. Pt was sitting up and couldn't reweigh Weight Status Emaciated Subjective/Other Information F/U for PO and ONS intakes. Pt stated her appetite is picking up. Pt ate about 25% of breakfast during visit and was still eating. Pt is going to drink an ensure with breakfast today. Pt reported eating about 25% of meals yesterday and drank 3 ensures. Percent of energy/protein needs met: 100%/100% Burn Absent Trauma Absent GI Symptoms None Difficulty In Swallowing,Chewing Current % PO Good (75-100%) Minimum of two criteria Yes Energy Intake (non-severe) <75% Estimated Energy Requirement >7 days Muscle Mass Mild Depletion (non-severe) Reduced Trolley Cleaner Strength Measurably Reduced (severe) #1 Nutrition Diagnosis Malnutrition Diagnosis Progress(for reassessment Continues documentation) Is patient on ventilator? No Is Patient Ambulatory and/or Out of Bed Yes REE-([facility]-ambulatory/OOB) [ 1337.700 NUTR.[id number]] Kcal/Kg value to use for calculation 30 Approximate Energy Requirements Using 1512 kcal/Kg Calculation Used for Recommendations Kcal/kg Additional Notes Protein: 56-70g (1.2-1.5g/kg) using from previous visit Fluid: 1 ml/kcal Nutrition Intervention Change Diet Order: Continue current Add Supplement/Snack (indicate name/kcal Ensure enlive all flavors TID /protein ) Provides kCal: 1,050 Provides Protein (gm) 60 Goal #1 Meet at least 80% of energy and protein needs Goal #2 Weight gain/maintenance Anticipated Discharge Needs: Pureed diet with ONS TID Follow-Up By: 07/04/19 Additional Comments F/U for PO/ONS intakes
[2019-07-02] MEDS: ENOXAPARIN 40 MG/0.4 ML INJ SUB-Q SCH (22:23)
[2019-07-02] MEDS: clonazePAM 0.5 MG TAB PO SCH (22:23)
[2019-07-03] MEDS: IPRATROPIUM/ALBUTEROL SULFATE 3 ML AMPUL.NEB IH SCH ×4 (03:22→20:38)
[2019-07-03] MEDS: dilTIAZem 60 MG TAB PO SCH ×2 (06:13→13:54)
[2019-07-03] MEDS: LEVOTHYROXINE 25 MCG TAB PO SCH (06:43)
[2019-07-03 06:51] LABS: Hematocrit 28.9 % (30.3-42.9); Hemoglobin 10.2 gm/dl (10.1-14.3); Mean Corpuscular HGB Conc 35 % (30-34); Mean Corpuscular Volume 99 fl (79-97); Platelet Count 359 K/mm3 (140-440); Red Blood Count 2.92 M/mm3 (3.65-5.03); Red Cell Distribution Width 14.7 % (13.2-15.2)
[2019-07-03] MEDS ORDERED: methylPREDNISolone Sod Succinate 125 MG/2 ML INJ IV SCH (08:37)
[2019-07-03] MEDS: ARFORMOTEROL 15 MCG/2 ML NEBU IH SCH ×2 (08:49→21:12)
[2019-07-03] MEDS: BUDESONIDE 0.5 MG/2 ML NEBU IH SCH ×2 (08:49→20:38)
[2019-07-03 09:13] LABS: ABG Base Excess 3.6 mmol/L (-2.0-3.0); ABG HCO3 27.5 mmol/L (20.0-26.0); ABG Methemoglobin 0.5 % (0.0-1.5); ABG Oxygen Saturation 92.4 % (95.0-99.0); ABG PCO2 38.6 mm Hg; ABG PH 7.47 pH Units (7.350-7.450); ABG PO2 59.1 mm Hg (80.0-90.0)
[2019-07-03] MEDS: HYDROcodone/ACETAMINOPHEN 7.5-325MG TAB PO PRN (09:19)
[2019-07-03] MEDS: methylPREDNISolone Sod Succinate 40 MG/1 ML INJ IV SCH (09:19)
[2019-07-03] MEDS: cefTRIAXone/NS 1 GM/50 ML 1 GM/50 ML BAG IV SCH (09:19)
--- NOTE | 2019-07-03 11:19 | XRay Report ---
CHEST 2 VIEWS INDICATION / CLINICAL INFORMATION: Follow up pneumonia. COMPARISON: 06/26/2019. FINDINGS: SUPPORT DEVICES: None. HEART / MEDIASTINUM: Unchanged. LUNGS / PLEURA: Patchy parenchymal disease throughout both mid to lower lung zones has shown marked i mprovement. Mild disease persists in the lung bases. No new abnormality is seen. No pneumothorax. ADDITIONAL FINDINGS: No significant additional findings. IMPRESSION: Marked improvement in bilateral pneumonia. Signer Name: Parag Humphries MD Signed: 07/03/2019 11:14 AM Workstation Name: [id number]
[2019-07-03] MEDS ORDERED: VANCOMYCIN 750 MG in SODIUM CHLORIDE 0.9% 250ML 250 ML IV SCH (12:00)
[2019-07-03 12:30] LABS: Basophils % (Manual) 0 % (0.0-1.8); Eosinophils % (Manual) 0 % (0.0-4.3); Total Cells Counted 100
[2019-07-03 12:57] LABS: Platelet Estimate Consistent w Auto; RBC Morphology Normal
--- NOTE | 2019-07-03 13:02 | Progress Note ---
Assessment and Plan Acute hypoxemic respiratory failure Multifocal infiltrates/presumed pneumonia Moderate protein calorie malnutrition Low grade fevers - CXR significantly improved; ? pulmonary edema elementa at the time - repeat lactate levels and get procalcitonin (prior levels elevated) - sputum C&S grew normal westley - ABG reviewed and addressed - follow KADY & VENKATA levels - continue systemic steroids but taper (tapered to 40 mg IV q12h) - continue supplemental oxygen, wean for O2 sats > 90% (transition off HFNC) - advance diet per [employer] rec's - completed empiric CAP AB's - outpatient PFT's - GI & VTE prophylaxis - Optimize nutritional status- BMI 18.9 - continue chronic home medications - Monitor hemodynamics closely - Monitor and trend fever curve - continue other care per attending ... re-evaluate in am & prn Subjective Date of service: 07/03/19 Principal diagnosis: Ac hypoxemic resp failure; Bilateral pneumonia; DPLD / Pulm Fibrosis Interval history: Patient is seen today for: Acute hypoxemic respiratory failure; Multifocal infiltrates/presumed pneumonia; Moderate protein calorie malnutrition; Low grade fevers Seen and examined at bedside; 24hour events reviewed; nursing and respiratory care staff consulted; no adverse overnight events reported to me; resting peacefully in bed; remainson HFNC but FiO2 down to 30%; she feels better; s/p [employer] evaluation and tolerating current diet; denies acute chest pains or palpitations Objective Vital Signs - 12hr 07/03/19 07/03/19 07/03/19 02:30 03:23 03:24 Temperature 98.3 F Pulse Rate 84 Pulse Rate [ 102 H Anterior Bilateral Throughout] Respiratory 20 Rate Respiratory 22 Rate [Anterior Bilateral Throughout] Blood Pressure 159/58 O2 Sat by Pulse 91 98 Oximetry 07/03/19 07/03/19 07/03/19 06:11 06:13 07:47 Temperature 98.8 F Pulse Rate 90 88 96 H Pulse Rate [ Anterior Bilateral Throughout] Respiratory 20 Rate Respiratory Rate [Anterior Bilateral Throughout] Blood Pressure 167/78 167/78 149/83 O2 Sat by Pulse 97 93 Oximetry 07/03/19 07/03/19 08:00 08:50 Temperature Pulse Rate Pulse Rate [ 97 H Anterior Bilateral Throughout] Respiratory Rate Respiratory 20 Rate [Anterior Bilateral Throughout] Blood Pressure O2 Sat by Pulse 95 Oximetry Constitutional: no acute distress, other (eldertly looking thin AAF, with normal respiratory effort at rest) Eyes: non-icteric ENT: oropharynx moist, other (s/p oral surgery) Neck: supple, no lymphadenopathy, no JVD Effort: normal Ascultation: Bilateral: diminished breath sounds, rhonchi (scant in bases) Percussion: Bilateral: not dull Cardiovascular: regular rate and rhythm Gastrointestinal: normoactive bowel sounds, soft, non-tender, non-distended Integumentary: normal Extremities: no cyanosis, no edema, pulses normal, no ischemia or petechiae Neurologic: normal mental status, non-focal exam, pupils equal and round, CN II- XII normal, motor strength normal and Psychiatric: mood appropriate, affect normal CBC and BMP: 07/03/19 06:39 06/27/19 05:38 ABG, PT/INR, D-dimer: ABG ABG pH 7.470 pH Units (7.350-7.450) H 07/03/19 09:02 ABG pCO2 38.6 mm Hg 07/03/19 09:02 ABG pO2 59.1 mm Hg (80.0-90.0) L 07/03/19 09:02 ABG O2 Saturation 92.4 % (95.0-99.0) L 07/03/19 09:02 Abnormal lab findings: Abnormal Labs 06/26/19 06/26/19 06/26/19 05:43 05:43 05:43 WBC RBC Hct MCV 100 H MCH 35 H MCHC 35 H Seg Neuts % (Manual) 87.0 H Lymphocytes % (Manual) 6.0 L Nucleated RBC % Seg Neutrophils # Man 9.0 H Lymphocytes # (Manual) 0.6 L ABG pH ABG pO2 ABG HCO3 ABG O2 Saturation ABG Base Excess ABG Hemoglobin Oxyhemoglobin Potassium Chloride 95.9 L Creatinine Glucose 153 H Lactic Acid 6.00 H* Calcium Magnesium AST 100 H Free T4 Thyroxine (T4) 06/26/19 06/26/19 06/26/19 05:43 12:47 12:47 WBC RBC Hct MCV MCH MCHC Seg Neuts % (Manual) Lymphocytes % (Manual) Nucleated RBC % Seg Neutrophils # Man Lymphocytes # (Manual) ABG pH ABG pO2 ABG HCO3 ABG O2 Saturation ABG Base Excess ABG Hemoglobin Oxyhemoglobin Potassium Chloride Creatinine Glucose Lactic Acid 2.20 H* Calcium Magnesium 1.10 L AST Free T4 0.69 L Thyroxine (T4) 06/26/19 06/27/19 06/27/19 12:47 05:38 05:38 WBC 14.3 H RBC 3.13 L Hct MCV 101 H MCH 34 H MCHC Seg Neuts % (Manual) 96.0 H Lymphocytes % (Manual) 3.0 L Nucleated RBC % Seg Neutrophils # Man 13.7 H Lymphocytes # (Manual) 0.4 L ABG pH ABG pO2 ABG HCO3 ABG O2 Saturation ABG Base Excess ABG Hemoglobin Oxyhemoglobin Potassium 3.5 L Chloride Creatinine 0.6 L Glucose 137 H Lactic Acid Calcium 7.5 L D Magnesium AST Free T4 Thyroxine (T4) 3.9 L 06/28/19 06/29/19 07/03/19 17:50 15:04 06:39 WBC RBC 2.92 L Hct 28.9 L MCV 99 H MCH 35 H MCHC 35 H Seg Neuts % (Manual) 91.0 H Lymphocytes % (Manual) 7.0 L Nucleated RBC % 2.0 H Seg Neutrophils # Man 9.0 H Lymphocytes # (Manual) 0.7 L ABG pH ABG pO2 55.7 L ABG HCO3 ABG O2 Saturation 88.5 L ABG Base Excess ABG Hemoglobin 11.1 L Oxyhemoglobin 86.8 L Potassium Chloride Creatinine Glucose Lactic Acid 2.90 H* Calcium Magnesium AST Free T4 Thyroxine (T4) 07/03/19 07/03/19 09:02 09:28 WBC RBC Hct MCV MCH MCHC Seg Neuts % (Manual) Lymphocytes % (Manual) Nucleated RBC % Seg Neutrophils # Man Lymphocytes # (Manual) ABG pH 7.470 H ABG pO2 59.1 L ABG HCO3 27.5 H ABG O2 Saturation 92.4 L ABG Base Excess 3.6 H ABG Hemoglobin 10.3 L Oxyhemoglobin 90.7 L Potassium Chloride Creatinine Glucose Lactic Acid 2.80 H* Calcium Magnesium AST Free T4 Thyroxine (T4) Chest x-ray: image reviewed (markedly improved bilateral pulmonary infiltrates) Allied health notes reviewed: nursing
--- NOTE | 2019-07-03 13:52 | Progress Note ---
Assessment and Plan Cultures: 06/26/2019 blood culture: No growth Influenza PCR: negative 06/30/2019 sputum culture: no growth thus far MRSA nasal PCR: negative A/P: 68-year-old female with hypertension, prior oral cancer status post extensive surgery including mandibulectomy and reconstruction, radiation therapy many ye ars ago now admitted with: #Bilateral pneumonia causing acute respiratory failure: remains on oxygen. Complete abx course. CBC, procal improved. CXR today is also much improved. #Fever on admission #H/O oral cancer status post extensive surgery including mandibulectomy and reconstruction, radiation therapy many years ago Recs: Vancomycin discontinued Complete 7 days of Ceftriaxone today Bong Covarrubias MD, FACP [facility] ([facility] C: [phone] O: [phone] F: [phone] Subjective Date of service: 07/03/19 Principal diagnosis: Ac hypoxemic resp failure; Bilateral pneumonia; DPLD / Pulm Fibrosis Interval history: No fever. Breathing well, remains on oxygen. Denies any complaints. Objective - Exam Narrative Exam: Physical Exam: Constitutional: Alert, cooperative. No acute distress. Cachectic Head, Ears, Nose: Normocephalic, atraumatic. External ears, nose normal Eyes: Conjunctivae/corneas clear. No icterus. No ptosis. Neck: Supple, no meningeal signs Oral: reconstruction, scar +, no thrush Cardiovascular: S1, S2 normal. Respiratory: clear bilaterally, no crackles heard GI: Soft, non-tender; bowel sounds normal. No peritoneal signs Musculoskeletal: No pedal edema, no cyanosis. Skin: No rash or abscess Hem/Lymphatic: No palpable cervical or supraclavicular nodes. No lymphangitis Psych: Mood ok. Affect normal Neurological: Awake, alert, oriented. No gross abnormality - Constitutional Vitals: Vital Signs Temp Pulse Resp BP Pulse Ox 98.8 F 97 H 20 149/83 95 07/03/19 07:47 07/03/19 08:50 07/03/19 08:50 07/03/19 07:47 07/03/19 08:00 Temperature -Last 24 Hours Temperature 98.8 F Temperature 98.3 F Temperature 98.7 F Temperature 99.0 F - Labs CBC & Chem 7: 07/03/19 06:39 06/27/19 05:38 Labs: Abnormal lab results 07/03/19 07/03/19 07/03/19 Range/Units 06:39 09:02 09:28 RBC 2.92 L (3.65-5.03) M/mm3 Hct 28.9 L (30.3-42.9) % MCV 99 H (79-97) fl MCH 35 H (28-32) pg MCHC 35 H (30-34) % Seg Neuts % (Manual) 91.0 H (40.0-70.0) % Lymphocytes % (Manual) 7.0 L (13.4-35.0) % Nucleated RBC % 2.0 H (0.0-0.9) % Seg Neutrophils # Man 9.0 H (1.8-7.7) K/mm3 Lymphocytes # (Manual) 0.7 L (1.2-5.4) K/mm3 ABG pH 7.470 H (7.350-7.450) pH Units ABG pO2 59.1 L (80.0-90.0) mm Hg ABG HCO3 27.5 H (20.0-26.0) mmol/L ABG O2 Saturation 92.4 L (95.0-99.0) % ABG Base Excess 3.6 H (-2.0-3.0) mmol/L ABG Hemoglobin 10.3 L (12.0-16.0) gm/dl Oxyhemoglobin 90.7 L (95.0-99.0) % Lactic Acid 2.80 H* (0.7-2.0) mmol/L 07/03/19 Range/Units 12:44 RBC (3.65-5.03) M/mm3 Hct (30.3-42.9) % MCV (79-97) fl MCH (28-32) pg MCHC (30-34) % Seg Neuts % (Manual) (40.0-70.0) % Lymphocytes % (Manual) (13.4-35.0) % Nucleated RBC % (0.0-0.9) % Seg Neutrophils # Man (1.8-7.7) K/mm3 Lymphocytes # (Manual) (1.2-5.4) K/mm3 ABG pH (7.350-7.450) pH Units ABG pO2 (80.0-90.0) mm Hg ABG HCO3 (20.0-26.0) mmol/L ABG O2 Saturation (95.0-99.0) % ABG Base Excess (-2.0-3.0) mmol/L ABG Hemoglobin (12.0-16.0) gm/dl Oxyhemoglobin (95.0-99.0) % Lactic Acid 3.10 H* (0.7-2.0) mmol/L - Imaging and cardiology Chest x-ray: report reviewed, image reviewed (infiltrates much improved.)
[2019-07-03] MEDS: SODIUM CHLORIDE 0.9% 1000 ML 1,000 ML IV SCH (13:54)
--- NOTE | 2019-07-03 17:06 | Progress Note ---
Assessment and Plan Assessment and plan: 68-year-old patient admitted with bilateral pneumonia and sepsis , on IV antibiotics Patient also has acute hypoxic respiratory failure continues to need high flow oxygen Unable to be secondary to COPD exacerbation Acute hypoxic respiratory failure Continues to require high flow oxygen, unable to wean CT chest consistent with diffuse proliferative disease, . 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 Continue antibiotics Vanco Rocephin and Zithromax. ID following Pulmonary recommendations noted and appreciated Copd exacerbation Continue nebulizers oxygen IV steroids, supportive care Hypokalemia Repleted,f/u electrolytes Hypomagnesemia Repleted Hypothyroidism, new onset low-dose Synthroid Hypertension Optimize meds. Mild to moderate malnutrition; dietitian consult, continue Ensure shakes DVT prophylaxis; lovenox Plan of care reviewed with the patient and her nurse DC planning per case management Assisting with LTAC placement History Interval history: Patient seen and examined medical records reviewed Patient continues to have worsening shortness of breath Patient requires high flow oxygen, unable to wean Alert and awake not in mild distress Vital signs reviewed Hospitalist Physical - Constitutional Vitals: Temp Pulse Resp BP Pulse Ox 98.3 F 87 18 138/60 92 07/03/19 13:19 07/03/19 16:20 07/03/19 16:20 07/03/19 13:19 07/03/19 16:19 General appearance: Present: mild distress, well-nourished - EENT Eyes: Present: PERRL, EOM intact - Neck Neck: Present: supple, normal ROM - Respiratory Respiratory effort: normal Respiratory: bilateral: diminished, rhonchi, negative: rales, wheezing - Cardiovascular Rhythm: regular Heart Sounds: Present: S1 & S2 - Extremities Extremities: no ischemia, No edema - Abdominal General gastrointestinal: soft, non-tender, non-distended, normal bowel sounds - Integumentary Integumentary: Present: clear, warm - Psychiatric Psychiatric: appropriate mood/affect, cooperative - Neurologic Neurologic: moves all extremities Results - Labs CBC & Chem 7: 07/03/19 06:39 06/27/19 05:38 Labs: Laboratory Last Values WBC 9.9 K/mm3 (4.5-11.0) 07/03/19 06:39 RBC 2.92 M/mm3 (3.65-5.03) L 07/03/19 06:39 Hgb 10.2 gm/dl (10.1-14.3) 07/03/19 06:39 Hct 28.9 % (30.3-42.9) L 07/03/19 06:39 MCV 99 fl (79-97) H 07/03/19 06:39 MCH 35 pg (28-32) H 07/03/19 06:39 MCHC 35 % (30-34) H 07/03/19 06:39 RDW 14.7 % (13.2-15.2) 07/03/19 06:39 Plt Count 359 K/mm3 (140-440) 07/03/19 06:39 Add Manual Diff Complete 07/03/19 06:39 Total Counted 100 07/03/19 06:39 Seg Neutrophils % Maintenance Man 07/03/19 06:39 Seg Neuts % (Manual) 91.0 % (40.0-70.0) H 07/03/19 06:39 Band Neutrophils % 0 % 07/03/19 06:39 Lymphocytes % (Manual) 7.0 % (13.4-35.0) L 07/03/19 06:39 Reactive Lymphs % (Man) 1.0 % 07/03/19 06:39 Monocytes % (Manual) 1.0 % (0.0-7.3) 07/03/19 06:39 Eosinophils % (Manual) 0 % (0.0-4.3) 07/03/19 06:39 Basophils % (Manual) 0 % (0.0-1.8) 07/03/19 06:39 Metamyelocytes % 0 % 07/03/19 06:39 Myelocytes % 0 % 07/03/19 06:39 Promyelocytes % 0 % 07/03/19 06:39 Blast Cells % 0 % 07/03/19 06:39 Nucleated RBC % 2.0 % (0.0-0.9) H 07/03/19 06:39 Seg Neutrophils # Man 9.0 K/mm3 (1.8-7.7) H 07/03/19 06:39 Band Neutrophils # 0.0 K/mm3 07/03/19 06:39 Lymphocytes # (Manual) 0.7 K/mm3 (1.2-5.4) L 07/03/19 06:39 Abs React Lymphs (Man) 0.1 K/mm3 07/03/19 06:39 Monocytes # (Manual) 0.1 K/mm3 (0.0-0.8) 07/03/19 06:39 Eosinophils # (Manual) 0.0 K/mm3 (0.0-0.4) 07/03/19 06:39 Basophils # (Manual) 0.0 K/mm3 (0.0-0.1) 07/03/19 06:39 Metamyelocytes # 0.0 K/mm3 07/03/19 06:39 Myelocytes # 0.0 K/mm3 07/03/19 06:39 Promyelocytes # 0.0 K/mm3 07/03/19 06:39 Blast Cells # 0.0 K/mm3 07/03/19 06:39 WBC Morphology Not Reportable 07/03/19 06:39 Hypersegmented Neuts Not Reportable 07/03/19 06:39 Hyposegmented Neuts Not Reportable 07/03/19 06:39 Hypogranular Neuts Not Reportable 07/03/19 06:39 Smudge Cells Not Reportable 07/03/19 06:39 Toxic Granulation Not Reportable 07/03/19 06:39 Toxic Vacuolation Not Reportable 07/03/19 06:39 Dohle Bodies Not Reportable 07/03/19 06:39 Pelger-Huet Anomaly Not Reportable 07/03/19 06:39 Ty Rods Not Reportable 07/03/19 06:39 Platelet Estimate Consistent w auto 07/03/19 06:39 Clumped Platelets Not Reportable 07/03/19 06:39 Plt Clumps, EDTA Not Reportable 07/03/19 06:39 Large Platelets Not Reportable 07/03/19 06:39 Giant Platelets Not Reportable 07/03/19 06:39 Platelet Satelliting Not Reportable 07/03/19 06:39 Plt Morphology Comment Not Reportable 07/03/19 06:39 RBC Morphology Normal 07/03/19 06:39 Dimorphic RBCs Not Reportable 07/03/19 06:39 Polychromasia Not Reportable 07/03/19 06:39 Hypochromasia Not Reportable 07/03/19 06:39 Poikilocytosis Not Reportable 07/03/19 06:39 Anisocytosis Not Reportable 07/03/19 06:39 Microcytosis Not Reportable 07/03/19 06:39 Macrocytosis Not Reportable 07/03/19 06:39 Spherocytes Not Reportable 07/03/19 06:39 Pappenheimer Bodies Not Reportable 07/03/19 06:39 Sickle Cells Not Reportable 07/03/19 06:39 Target Cells Not Reportable 07/03/19 06:39 Tear Drop Cells Not Reportable 07/03/19 06:39 Ovalocytes Not Reportable 07/03/19 06:39 Helmet Cells Not Reportable 07/03/19 06:39 [place] Bodies Not Reportable 07/03/19 06:39 [place] Rings Not Reportable 07/03/19 06:39 [place] Cells Not Reportable 07/03/19 06:39 Bite Cells Not Reportable 07/03/19 06:39 Crenated Cell Not Reportable 07/03/19 06:39 Elliptocytes Not Reportable 07/03/19 06:39 Acanthocytes (Spur) Not Reportable 07/03/19 06:39 Rouleaux Not Reportable 07/03/19 06:39 Hemoglobin C Crystals Not Reportable 07/03/19 06:39 Schistocytes Not Reportable 07/03/19 06:39 Malaria parasites Not Reportable 07/03/19 06:39 [place] Bodies Not Reportable 07/03/19 06:39 Hem Pathologist Commnt No 07/03/19 06:39 ABG pH 7.470 pH Units (7.350-7.450) H 07/03/19 09:02 ABG pCO2 38.6 mm Hg 07/03/19 09:02 ABG pO2 59.1 mm Hg (80.0-90.0) L 07/03/19 09:02 ABG HCO3 27.5 mmol/L (20.0-26.0) H 07/03/19 09:02 ABG O2 Saturation 92.4 % (95.0-99.0) L 07/03/19 09:02 ABG O2 Content 13.1 (0.0-44) 07/03/19 09:02 ABG Base Excess 3.6 mmol/L (-2.0-3.0) H 07/03/19 09:02 ABG Hemoglobin 10.3 gm/dl (12.0-16.0) L 07/03/19 09:02 ABG Carboxyhemoglobin 1.4 % (0.0-5.0) 07/03/19 09:02 ABG Methemoglobin 0.5 % (0.0-1.5) 07/03/19 09:02 Oxyhemoglobin 90.7 % (95.0-99.0) L 07/03/19 09:02 FiO2 21 % 07/03/19 09:02 Sodium 139 mmol/L (137-145) 06/27/19 05:38 Potassium 3.5 mmol/L (3.6-5.0) L 06/27/19 05:38 Chloride 104.0 mmol/L (98-107) 06/27/19 05:38 Carbon Dioxide 23 mmol/L (22-30) 06/27/19 05:38 Anion Gap 16 mmol/L 06/27/19 05:38 BUN 9 mg/dL (7-17) 06/27/19 05:38 Creatinine 0.6 mg/dL (0.7-1.2) L 06/27/19 05:38 Estimated GFR > 60 ml/min 06/27/19 05:38 BUN/Creatinine Ratio 15 % 06/27/19 05:38 Glucose 137 mg/dL (65-100) H 06/27/19 05:38 Lactic Acid 3.10 mmol/L (0.7-2.0) H* 07/03/19 12:44 Calcium 7.5 mg/dL (8.4-10.2) L D 06/27/19 05:38 Magnesium 1.90 mg/dL (1.7-2.3) 06/27/19 05:38 Total Bilirubin 0.40 mg/dL (0.1-1.2) 06/26/19 05:43 AST 100 units/L (5-40) H 06/26/19 05:43 ALT 49 units/L (7-56) 06/26/19 05:43 Alkaline Phosphatase 54 units/L (35-129) 06/26/19 05:43 Troponin T < 0.010 ng/mL (0.00-0.029) 06/26/19 05:43 Total Protein 7.6 g/dL (6.3-8.2) 06/26/19 05:43 Albumin 4.1 g/dL (3.9-5) 06/26/19 05:43 Albumin/Globulin Ratio 1.2 % 06/26/19 05:43 Procalcitonin 0.90 ng/mL (<0.15) 07/01/19 04:30 TSH 0.939 mlU/mL (0.270-4.200) 06/26/19 12:47 Free T4 0.69 ng/dL (0.76-1.46) L 06/26/19 12:47 Thyroxine (T4) 3.9 ug/dL (4.0-12.0) L 06/26/19 12:47 Urine Color Straw (Yellow) 06/26/19 Unknown Urine Turbidity Clear (Clear) 06/26/19 Unknown Urine pH 6.0 (5.0-7.0) 06/26/19 Unknown Ur Specific [place] 1.006 (1.003-1.030) 06/26/19 Unknown Urine Protein <15 mg/dl mg/dL (Negative) 06/26/19 Unknown Urine Glucose (UA) Neg mg/dL (Negative) 06/26/19 Unknown Urine Ketones Neg mg/dL (Negative) 06/26/19 Unknown Urine Blood Neg (Negative) 06/26/19 Unknown Urine Nitrite Neg (Negative) 06/26/19 Unknown Urine Bilirubin Neg (Negative) 06/26/19 Unknown Urine Urobilinogen < 2.0 mg/dL (<2.0) 06/26/19 Unknown Ur Leukocyte Esterase Neg (Negative) 06/26/19 Unknown Urine WBC (Auto) 1.0 /HPF (0.0-6.0) 06/26/19 Unknown Urine RBC (Auto) 1.0 /HPF (0.0-6.0) 06/26/19 Unknown Urine Bacteria (Auto) 1+ /HPF (Negative) 06/26/19 Unknown Urine Mucus Few /HPF 06/26/19 Unknown Nasal Screen MRSA (PCR) Negative (Negative) 06/30/19 Unknown Vancomycin Trough 8.3 ug/mL (5.0-20.0) 07/02/19 14:33 Urine Opiates Screen Presumptive negative 06/26/19 Unknown Urine Methadone Screen Presumptive negative 06/26/19 Unknown Ur Barbiturates Screen Presumptive negative 06/26/19 Unknown Ur Phencyclidine Scrn Presumptive negative 06/26/19 Unknown Ur Amphetamines Screen Presumptive negative 06/26/19 Unknown U Benzodiazepines Scrn Presumptive negative 06/26/19 Unknown Urine Cocaine Screen Presumptive negative 06/26/19 Unknown U Marijuana (THC) Screen Presumptive negative 06/26/19 Unknown Drugs of Abuse Note Disclamer 06/26/19 Unknown Influenza A (Rapid) Negative (Negative) 06/27/19 03:00 Influenza A (RT-PCR) Negative (Negative) 06/30/19 Unknown Influenza B (Rapid) Negative (Negative) 06/27/19 03:00 Influenza B (RT-PCR) Negative (Negative) 06/30/19 Unknown Active Medications - Current Medications Current Medications: Generic Name Dose Route Start Last Admin Trade Name Freq PRN Reason Stop Dose Admin Acetaminophen 650 mg 06/26/19 09:47 Tylenol PO Q4H PRN Pain MILD(1-3)/Fever >100.5/CALLEJAS Acetaminophen/Hydrocodone Bitart 1 each 06/26/19 10:39 07/03/19 09:19 Wister 7.5/325 PO 1 each Q6H PRN Administration Pain, Moderate (4-6) Albuterol 2.5 mg 06/27/19 14:12 Proventil IH Q4HRT PRN Shortness Of Breath Albuterol/Ipratropium 1 ampul 06/27/19 16:00 07/03/19 16:16 Duoneb *Not For Prn Use* IH 1 ampul Q6HRT PEPE Administration Arformoterol Tartrate 15 mcg 06/27/19 20:00 07/03/19 08:49 Brovana Nebu IH 15 mcg Q12HRT PEPE Administration Budesonide 0.5 mg 06/27/19 20:00 07/03/19 08:49 Pulmicort IH 0.5 mg Q12HRT PEPE Administration Clonazepam 1 mg 06/26/19 23:00 07/02/19 22:23 Klonopin PO 1 mg QHS PEPE Administration Diltiazem HCl 60 mg 06/27/19 22:00 07/03/19 13:54 Cardizem PO 60 mg Q8HR PEPE Administration Enoxaparin Sodium 40 mg 06/26/19 22:00 07/02/19 22:23 Enoxaparin SUB-Q 40 mg QDAY@2200 PEPE Administration Ceftriaxone Sodium 1 gm in 50 mls @ 100 mls/hr 06/26/19 12:00 07/03/19 09:19 Rocephin/Ns 1 Gm/50 Ml IV 100 mls/hr Q24HR PEPE Administration Protocol Sodium Chloride 1,000 mls @ 42 mls/hr 06/26/19 10:00 07/03/19 13:54 Nacl 0.9% 1000 Ml IV 75 mls/hr DIRECT PEPE Administration Levothyroxine Sodium 25 mcg 06/30/19 06:00 07/03/19 06:43 Synthroid PO 25 mcg DAILY@0600 PEPE Administration Methylprednisolone Sodium Succinate 40 mg 07/03/19 10:00 07/03/19 09:19 Solu-Medrol IV 40 mg Q12HR PEPE Administration Miscellaneous Medication 1 tab 06/26/19 10:00 06/26/19 11:11 Methscopolamine [place] [Pamine] PO Not Given DAILY PEPE Ondansetron HCl 4 mg 06/26/19 09:47 Zofran IV Q8H PRN Nausea And Vomiting Sodium Chloride 10 ml 06/26/19 10:00 07/03/19 09:20 Sodium Chloride Flush Syringe 10 Ml IV 10 ml BID PEPE Administration Sodium Chloride 10 ml 06/26/19 09:47 06/28/19 04:28 Sodium Chloride Flush Syringe 10 Ml IV 10 ml PRN PRN Administration LINE FLUSH Nutrition/Malnutrition Assess - Dietary Evaluation Nutrition/Malnutrition Findings: Nutrition Notes Start: 06/30/19 12:08 Freq: Status: Active Protocol: Document 07/02/19 09:53 BERT (Rec: 07/02/19 10:01 BERT [id number]) Co-Sign 07/02/19 09:53 LP Nutrition Notes Initial or Follow up Reassessment Current Diagnosis Sepsis,Hypertension Other Pertinent Diagnosis hx of mouth cancer, pneumonia, hypothyroidism Current Diet Pureed Labs/Tests BG 137 Pertinent Medications Solu-Medrol NaCl at 42 ml/hr Height 5 ft 4 in Weight 50.4 kg [place] Body Weight (kg) 54.54 BMI 19.1 Weight change and time frame Wt change noted. Pt was sitting up and couldn't reweigh Weight Status Emaciated Subjective/Other Information F/U for PO and ONS intakes. Pt stated her appetite is picking up. Pt ate about 25% of breakfast during visit and was still eating. Pt is going to drink an ensure with breakfast today. Pt reported eating about 25% of meals yesterday and drank 3 ensures. Percent of energy/protein needs met: 100%/100% Burn Absent Trauma Absent GI Symptoms None Difficulty In Swallowing,Chewing Current % PO Good (75-100%) Minimum of two criteria Yes Energy Intake (non-severe) <75% Estimated Energy Requirement >7 days Muscle Mass Mild Depletion (non-severe) Reduced Hardness Tester Strength Measurably Reduced (severe) #1 Nutrition Diagnosis Malnutrition Diagnosis Progress(for reassessment Continues documentation) Is patient on ventilator? No Is Patient Ambulatory and/or Out of Bed Yes REE-([place]-St. Jeor-ambulatory/OOB) [ 1337.700 [id number]] Kcal/Kg value to use for calculation 30 Approximate Energy Requirements Using 1512 kcal/Kg Calculation Used for Recommendations Kcal/kg Additional Notes Protein: 56-70g (1.2-1.5g/kg) using from previous visit Fluid: 1 ml/kcal Nutrition Intervention Change Diet Order: Continue current Add Supplement/Snack (indicate name/kcal Ensure enlive all flavors TID /protein ) Provides kCal: 1,050 Provides Protein (gm) 60 Goal #1 Meet at least 80% of energy and protein needs Goal #2 Weight gain/maintenance Anticipated Discharge Needs: Pureed diet with ONS TID Follow-Up By: 07/04/19 Additional Comments F/U for PO/ONS intakes
[2019-07-04] MEDS: clonazePAM 0.5 MG TAB PO SCH ×2 (01:08→23:59)
[2019-07-04] MEDS: methylPREDNISolone Sod Succinate 40 MG/1 ML INJ IV SCH ×3 (01:10→23:20)
[2019-07-04] MEDS: HYDROcodone/ACETAMINOPHEN 7.5-325MG TAB PO PRN ×3 (01:10→20:43)
[2019-07-04] MEDS: IPRATROPIUM/ALBUTEROL SULFATE 3 ML AMPUL.NEB IH SCH ×4 (03:49→19:02)
[2019-07-04] MEDS: ARFORMOTEROL 15 MCG/2 ML NEBU IH SCH ×2 (08:50→19:01)
[2019-07-04] MEDS: BUDESONIDE 0.5 MG/2 ML NEBU IH SCH ×2 (08:50→19:01)
--- NOTE | 2019-07-04 11:13 | Progress Note ---
Assessment and Plan Assessment and plan: 68-year-old patient admitted with bilateral pneumonia and sepsis , on IV antibiotics Patient also has acute hypoxic respiratory failure continues to need high flow oxygen The patient had trial nasal cannula oxygen 2-3 L, saturating about 90% Bilateral pneumonia/sepsis? Received antibiotics Vanco Rocephin and Zithromax. Completed treatment Monitor off antibiotics per ID Pulmonary following . Persistent lactic acidosis : Unknown etiology Patient is doing well off antibiotics Acute hypoxic respiratory failure Patient was on high flow oxygen for a long time, Today trial nasal cannula 2-3 L, O2 sats is reasonable CT chest consistent with diffuse proliferative disease, . Given history of oral cancer bait tier would like to rule out mets Flu negative,Pulm following Copd exacerbation Patient doing much better on nebulizers and steroids and oxygen Still has some wheezing Hypokalemia Repleted,f/u electrolytes Hypomagnesemia Repleted Hypothyroidism, new onset low-dose Synthroid Hypertension Optimize meds. Mild to moderate malnutrition; dietitian consult, continue Ensure shakes DVT prophylaxis; lovenox Plan of care reviewed with the patient and her nurse DC planning per case management Assisting with LTAC placement History Interval history: Patient seen and examined this morning medical records reviewed Patient is not acute respiratory failure requiring high flow oxygen However this morning saturating 98% on trial 2-3 L of nasal cannula Patient continues to have chest congestion Alert,awake Vital signs reviewed Hospitalist Physical - Constitutional Vitals: Temp Pulse Resp BP Pulse Ox 97.8 F 78 18 147/62 99 07/04/19 07:57 07/04/19 08:00 07/04/19 08:00 07/04/19 07:57 07/04/19 08:00 General appearance: Present: mild distress, well-nourished - EENT Eyes: Present: PERRL, EOM intact - Neck Neck: Present: supple, normal ROM - Respiratory Respiratory: bilateral: diminished, rhonchi, negative: rales, wheezing - Cardiovascular Rhythm: regular Heart Sounds: Present: S1 & S2 - Extremities Extremities: no ischemia, No edema - Abdominal General gastrointestinal: soft, non-tender, non-distended, normal bowel sounds - Integumentary Integumentary: Present: clear, warm - Psychiatric Psychiatric: appropriate mood/affect, cooperative - Neurologic Neurologic: moves all extremities Results - Labs CBC & Chem 7: 07/03/19 06:39 06/27/19 05:38 Labs: Laboratory Last Values WBC 9.9 K/mm3 (4.5-11.0) 07/03/19 06:39 RBC 2.92 M/mm3 (3.65-5.03) L 07/03/19 06:39 Hgb 10.2 gm/dl (10.1-14.3) 07/03/19 06:39 Hct 28.9 % (30.3-42.9) L 07/03/19 06:39 MCV 99 fl (79-97) H 07/03/19 06:39 MCH 35 pg (28-32) H 07/03/19 06:39 MCHC 35 % (30-34) H 07/03/19 06:39 RDW 14.7 % (13.2-15.2) 07/03/19 06:39 Plt Count 359 K/mm3 (140-440) 07/03/19 06:39 Add Manual Diff Complete 07/03/19 06:39 Total Counted 100 07/03/19 06:39 Seg Neutrophils % Workday Manager 07/03/19 06:39 Seg Neuts % (Manual) 91.0 % (40.0-70.0) H 07/03/19 06:39 Band Neutrophils % 0 % 07/03/19 06:39 Lymphocytes % (Manual) 7.0 % (13.4-35.0) L 07/03/19 06:39 Reactive Lymphs % (Man) 1.0 % 07/03/19 06:39 Monocytes % (Manual) 1.0 % (0.0-7.3) 07/03/19 06:39 Eosinophils % (Manual) 0 % (0.0-4.3) 07/03/19 06:39 Basophils % (Manual) 0 % (0.0-1.8) 07/03/19 06:39 Metamyelocytes % 0 % 07/03/19 06:39 Myelocytes % 0 % 07/03/19 06:39 Promyelocytes % 0 % 07/03/19 06:39 Blast Cells % 0 % 07/03/19 06:39 Nucleated RBC % 2.0 % (0.0-0.9) H 07/03/19 06:39 Seg Neutrophils # Man 9.0 K/mm3 (1.8-7.7) H 07/03/19 06:39 Band Neutrophils # 0.0 K/mm3 07/03/19 06:39 Lymphocytes # (Manual) 0.7 K/mm3 (1.2-5.4) L 07/03/19 06:39 Abs React Lymphs (Man) 0.1 K/mm3 07/03/19 06:39 Monocytes # (Manual) 0.1 K/mm3 (0.0-0.8) 07/03/19 06:39 Eosinophils # (Manual) 0.0 K/mm3 (0.0-0.4) 07/03/19 06:39 Basophils # (Manual) 0.0 K/mm3 (0.0-0.1) 07/03/19 06:39 Metamyelocytes # 0.0 K/mm3 07/03/19 06:39 Myelocytes # 0.0 K/mm3 07/03/19 06:39 Promyelocytes # 0.0 K/mm3 07/03/19 06:39 Blast Cells # 0.0 K/mm3 07/03/19 06:39 WBC Morphology Not Reportable 07/03/19 06:39 Hypersegmented Neuts Not Reportable 07/03/19 06:39 Hyposegmented Neuts Not Reportable 07/03/19 06:39 Hypogranular Neuts Not Reportable 07/03/19 06:39 Smudge Cells Not Reportable 07/03/19 06:39 Toxic Granulation Not Reportable 07/03/19 06:39 Toxic Vacuolation Not Reportable 07/03/19 06:39 Dohle Bodies Not Reportable 07/03/19 06:39 Pelger-Huet Anomaly Not Reportable 07/03/19 06:39 Ty Rods Not Reportable 07/03/19 06:39 Platelet Estimate Consistent w auto 07/03/19 06:39 Clumped Platelets Not Reportable 07/03/19 06:39 Plt Clumps, EDTA Not Reportable 07/03/19 06:39 Large Platelets Not Reportable 07/03/19 06:39 Giant Platelets Not Reportable 07/03/19 06:39 Platelet Satelliting Not Reportable 07/03/19 06:39 Plt Morphology Comment Not Reportable 07/03/19 06:39 RBC Morphology Normal 07/03/19 06:39 Dimorphic RBCs Not Reportable 07/03/19 06:39 Polychromasia Not Reportable 07/03/19 06:39 Hypochromasia Not Reportable 07/03/19 06:39 Poikilocytosis Not Reportable 07/03/19 06:39 Anisocytosis Not Reportable 07/03/19 06:39 Microcytosis Not Reportable 07/03/19 06:39 Macrocytosis Not Reportable 07/03/19 06:39 Spherocytes Not Reportable 07/03/19 06:39 Pappenheimer Bodies Not Reportable 07/03/19 06:39 Sickle Cells Not Reportable 07/03/19 06:39 Target Cells Not Reportable 07/03/19 06:39 Tear Drop Cells Not Reportable 07/03/19 06:39 Ovalocytes Not Reportable 07/03/19 06:39 Helmet Cells Not Reportable 07/03/19 06:39 Sidhu-Pimlico Bodies Not Reportable 07/03/19 06:39 Meadow Rings Not Reportable 07/03/19 06:39 [place] Cells Not Reportable 07/03/19 06:39 Bite Cells Not Reportable 07/03/19 06:39 Crenated Cell Not Reportable 07/03/19 06:39 Elliptocytes Not Reportable 07/03/19 06:39 Acanthocytes (Spur) Not Reportable 07/03/19 06:39 Rouleaux Not Reportable 07/03/19 06:39 Hemoglobin C Crystals Not Reportable 07/03/19 06:39 Schistocytes Not Reportable 07/03/19 06:39 Malaria parasites Not Reportable 07/03/19 06:39 Maxwell Bodies Not Reportable 07/03/19 06:39 Hem Pathologist Commnt No 07/03/19 06:39 ABG pH 7.470 pH Units (7.350-7.450) H 07/03/19 09:02 ABG pCO2 38.6 mm Hg 07/03/19 09:02 ABG pO2 59.1 mm Hg (80.0-90.0) L 07/03/19 09:02 ABG HCO3 27.5 mmol/L (20.0-26.0) H 07/03/19 09:02 ABG O2 Saturation 92.4 % (95.0-99.0) L 07/03/19 09:02 ABG O2 Content 13.1 (0.0-44) 07/03/19 09:02 ABG Base Excess 3.6 mmol/L (-2.0-3.0) H 07/03/19 09:02 ABG Hemoglobin 10.3 gm/dl (12.0-16.0) L 07/03/19 09:02 ABG Carboxyhemoglobin 1.4 % (0.0-5.0) 07/03/19 09:02 ABG Methemoglobin 0.5 % (0.0-1.5) 07/03/19 09:02 Oxyhemoglobin 90.7 % (95.0-99.0) L 07/03/19 09:02 FiO2 21 % 07/03/19 09:02 Sodium 139 mmol/L (137-145) 06/27/19 05:38 Potassium 3.5 mmol/L (3.6-5.0) L 06/27/19 05:38 Chloride 104.0 mmol/L (98-107) 06/27/19 05:38 Carbon Dioxide 23 mmol/L (22-30) 06/27/19 05:38 Anion Gap 16 mmol/L 06/27/19 05:38 BUN 9 mg/dL (7-17) 06/27/19 05:38 Creatinine 0.6 mg/dL (0.7-1.2) L 06/27/19 05:38 Estimated GFR > 60 ml/min 06/27/19 05:38 BUN/Creatinine Ratio 15 % 06/27/19 05:38 Glucose 137 mg/dL (65-100) H 06/27/19 05:38 Lactic Acid 4.00 mmol/L (0.7-2.0) H* 07/04/19 10:19 Calcium 7.5 mg/dL (8.4-10.2) L D 06/27/19 05:38 Magnesium 1.90 mg/dL (1.7-2.3) 06/27/19 05:38 Total Bilirubin 0.40 mg/dL (0.1-1.2) 06/26/19 05:43 AST 100 units/L (5-40) H 06/26/19 05:43 ALT 49 units/L (7-56) 06/26/19 05:43 Alkaline Phosphatase 54 units/L (35-129) 06/26/19 05:43 Troponin T < 0.010 ng/mL (0.00-0.029) 06/26/19 05:43 Total Protein 7.6 g/dL (6.3-8.2) 06/26/19 05:43 Albumin 4.1 g/dL (3.9-5) 06/26/19 05:43 Albumin/Globulin Ratio 1.2 % 06/26/19 05:43 Procalcitonin 0.90 ng/mL (<0.15) 07/01/19 04:30 TSH 0.939 mlU/mL (0.270-4.200) 06/26/19 12:47 Free T4 0.69 ng/dL (0.76-1.46) L 06/26/19 12:47 Thyroxine (T4) 3.9 ug/dL (4.0-12.0) L 06/26/19 12:47 Urine Color Straw (Yellow) 06/26/19 Unknown Urine Turbidity Clear (Clear) 06/26/19 Unknown Urine pH 6.0 (5.0-7.0) 06/26/19 Unknown Ur Specific [place] 1.006 (1.003-1.030) 06/26/19 Unknown Urine Protein <15 mg/dl mg/dL (Negative) 06/26/19 Unknown Urine Glucose (UA) Neg mg/dL (Negative) 06/26/19 Unknown Urine Ketones Neg mg/dL (Negative) 06/26/19 Unknown Urine Blood Neg (Negative) 06/26/19 Unknown Urine Nitrite Neg (Negative) 06/26/19 Unknown Urine Bilirubin Neg (Negative) 06/26/19 Unknown Urine Urobilinogen < 2.0 mg/dL (<2.0) 06/26/19 Unknown Ur Leukocyte Esterase Neg (Negative) 06/26/19 Unknown Urine WBC (Auto) 1.0 /HPF (0.0-6.0) 06/26/19 Unknown Urine RBC (Auto) 1.0 /HPF (0.0-6.0) 06/26/19 Unknown Urine Bacteria (Auto) 1+ /HPF (Negative) 06/26/19 Unknown Urine Mucus Few /HPF 06/26/19 Unknown Nasal Screen MRSA (PCR) Negative (Negative) 06/30/19 Unknown Vancomycin Trough 8.3 ug/mL (5.0-20.0) 07/02/19 14:33 Urine Opiates Screen Presumptive negative 06/26/19 Unknown Urine Methadone Screen Presumptive negative 06/26/19 Unknown Ur Barbiturates Screen Presumptive negative 06/26/19 Unknown Ur Phencyclidine Scrn Presumptive negative 06/26/19 Unknown Ur Amphetamines Screen Presumptive negative 06/26/19 Unknown U Benzodiazepines Scrn Presumptive negative 06/26/19 Unknown Urine Cocaine Screen Presumptive negative 06/26/19 Unknown U Marijuana (THC) Screen Presumptive negative 06/26/19 Unknown Drugs of Abuse Note Disclamer 06/26/19 Unknown Influenza A (Rapid) Negative (Negative) 06/27/19 03:00 Influenza A (RT-PCR) Negative (Negative) 06/30/19 Unknown Influenza B (Rapid) Negative (Negative) 06/27/19 03:00 Influenza B (RT-PCR) Negative (Negative) 06/30/19 Unknown Active Medications - Current Medications Current Medications: Generic Name Dose Route Start Last Admin Trade Name Freq PRN Reason Stop Dose Admin Acetaminophen 650 mg 06/26/19 09:47 Tylenol PO Q4H PRN Pain MILD(1-3)/Fever >100.5/CALLEJAS Acetaminophen/Hydrocodone Bitart 1 each 06/26/19 10:39 07/04/19 01:10 [place] 7.5/325 PO 1 each Q6H PRN Administration Pain, Moderate (4-6) Albuterol 2.5 mg 06/27/19 14:12 Proventil IH Q4HRT PRN Shortness Of Breath Albuterol/Ipratropium 1 ampul 06/27/19 16:00 07/04/19 08:50 Duoneb *Not For Prn Use* IH 1 ampul Q6HRT PEPE Administration Arformoterol Tartrate 15 mcg 06/27/19 20:00 07/04/19 08:50 Brovana Nebu IH 15 mcg Q12HRT PEPE Administration Budesonide 0.5 mg 06/27/19 20:00 07/04/19 08:50 Pulmicort IH 0.5 mg Q12HRT PEPE Administration Clonazepam 1 mg 06/26/19 23:00 07/04/19 01:08 Klonopin PO 1 mg QHS PEPE Administration Diltiazem HCl 60 mg 06/27/19 22:00 07/03/19 13:54 Cardizem PO 60 mg Q8HR PEPE Administration Enoxaparin Sodium 40 mg 06/26/19 22:00 07/02/19 22:23 Enoxaparin SUB-Q 40 mg QDAY@2200 PEPE Administration Sodium Chloride 1,000 mls @ 42 mls/hr 06/26/19 10:00 07/03/19 13:54 Nacl 0.9% 1000 Ml IV 75 mls/hr DIRECT PEPE Administration Levothyroxine Sodium 25 mcg 06/30/19 06:00 07/03/19 06:43 Synthroid PO 25 mcg DAILY@0600 PEPE Administration Methylprednisolone Sodium Succinate 40 mg 07/03/19 10:00 07/04/19 01:10 Solu-Medrol IV 40 mg Q12HR PEPE Administration Miscellaneous Medication 1 tab 06/26/19 10:00 06/26/19 11:11 Methsc[address] [place] [Pamine] PO Not Given DAILY PEPE Ondansetron HCl 4 mg 06/26/19 09:47 Zofran IV Q8H PRN Nausea And Vomiting Sodium Chloride 10 ml 06/26/19 10:00 07/04/19 01:10 Sodium Chloride Flush Syringe 10 Ml IV 10 ml BID PEPE Administration Sodium Chloride 10 ml 06/26/19 09:47 06/28/19 04:28 Sodium Chloride Flush Syringe 10 Ml IV 10 ml PRN PRN Administration LINE FLUSH Nutrition/Malnutrition Assess - Dietary Evaluation Nutrition/Malnutrition Findings: Nutrition Notes Start: 06/30/19 12:08 Freq: Status: Active Protocol: Document 07/04/19 09:45 BERT (Rec: 07/04/19 09:50 BERT [id number]) Co-Sign 07/04/19 09:45 LP Nutrition Notes Initial or Follow up Reassessment Current Diagnosis Sepsis,Hypertension Other Pertinent Diagnosis hx of mouth cancer, pneumonia, hypothyroidism Current Diet Pureed Labs/Tests Reviewed Pertinent Medications Solu-Medrol Height 5 ft 4 in Weight 50.2 kg [place] Body Weight (kg) 54.54 BMI 19.0 Weight Status Emaciated Subjective/Other Information F/U for PO and ONS intakes. Pt stated her appetite has been good and about about 75% of breakfast. Pt stated eating about 50% of meals yesterday and 3 Ensures. Percent of energy/protein needs met: 100%/100% Burn Absent Trauma Absent GI Symptoms None Difficulty In Swallowing,Chewing Current % PO Good (75-100%) Minimum of two criteria Yes Energy Intake (non-severe) <75% Estimated Energy Requirement >7 days Muscle Mass Mild Depletion (non-severe) Reduced Candy Catcher Strength Measurably Reduced (severe) #1 Nutrition Diagnosis Malnutrition Diagnosis Progress(for reassessment Continues documentation) Is patient on ventilator? No Is Patient Ambulatory and/or Out of Bed Yes REE-(Giles-St. Jeor-ambulatory/OOB) [ 1335.100 NUTR.[id number]] Kcal/Kg value to use for calculation 30 Approximate Energy Requirements Using 1506 kcal/Kg Calculation Used for Recommendations Kcal/kg Additional Notes Protein: 60-75g (1.2-1.5g/kg) Fluid: 1 ml/kcal Nutrition Intervention Change Diet Order: Continue current Add Supplement/Snack (indicate name/kcal Ensure enlive all flavors TID /protein ) Provides kCal: 1,050 Provides Protein (gm) 60 Goal #1 Meet at least 80% of energy and protein needs Goal #2 Weight gain/maintenance Anticipated Discharge Needs: Pureed diet with ONS TID Follow-Up By: 07/29/19 Additional Comments F/U for PO/ONS intakes
[2019-07-04] MEDS: dilTIAZem 60 MG TAB PO SCH ×2 (13:19→23:59)
--- NOTE | 2019-07-04 13:46 | Progress Note ---
Assessment and Plan Cultures: 06/26/2019 blood culture: No growth Influenza PCR: negative 06/30/2019 sputum culture: no growth thus far MRSA nasal PCR: negative A/P: 68-year-old female with hypertension, prior oral cancer status post extensive surgery including mandibulectomy and reconstruction, radiation therapy many ye ars ago now admitted with: #Bilateral pneumonia causing acute respiratory failure: remains on oxygen. Completed abx course. CBC, procal improved. CXR 07/03/2019 also much improved. #Fever on admission: secondary to above #H/O oral cancer status post extensive surgery including mandibulectomy and r econstruction, radiation therapy many years ago Recs: remains stable off antibiotics. Completed abx for pneumonia on 07/03/2019 lactate elevated, cause unclear. Patient not hypotensive, making urine and is asymptomatic. ?type B. Bong Covarrubias MD, FACP [facility] ([facility]) C: [phone] O: [phone] F: [phone] Subjective Date of service: 07/04/19 Principal diagnosis: Ac hypoxemic resp failure; Bilateral pneumonia; DPLD / Pulm Fibrosis Interval history: No fever. Breathing well, remains on oxygen but weaned down. Denies any complaints. Objective - Exam Narrative Exam: Physical Exam: Constitutional: Alert, cooperative. No acute distress. Cachectic Head, Ears, Nose: Normocephalic, atraumatic. External ears, nose normal Eyes: Conjunctivae/corneas clear. No icterus. No ptosis. Neck: Supple, no meningeal signs Oral: reconstruction, scar +, no thrush Cardiovascular: S1, S2 normal. Respiratory: clear bilaterally, no wheeze GI: Soft, non-tender; bowel sounds normal. No peritoneal signs Musculoskeletal: No pedal edema, no cyanosis. Skin: No rash or abscess Hem/Lymphatic: No palpable cervical or supraclavicular nodes. No lymphangitis Psych: Mood ok. Affect normal Neurological: Awake, alert, oriented. No gross abnormality - Constitutional Vitals: Vital Signs Temp Pulse Resp BP Pulse Ox 97.8 F 76 18 138/60 99 07/04/19 07:57 07/04/19 13:19 07/04/19 12:16 07/04/19 13:19 07/04/19 08:00 Temperature -Last 24 Hours Temperature 97.8 F Temperature 98.6 F Temperature 98.5 F - Labs CBC & Chem 7: 07/03/19 06:39 06/27/19 05:38 Labs: Abnormal lab results 07/03/19 07/03/19 07/04/19 Range/Units 19:20 21:27 04:14 Lactic Acid 3.30 H* 3.30 H* 2.50 H* (0.7-2.0) mmol/L 07/04/19 07/04/19 07/04/19 Range/Units 06:27 08:32 10:19 Lactic Acid 2.70 H* 2.90 H* 4.00 H* (0.7-2.0) mmol/L
--- NOTE | 2019-07-04 14:26 | Progress Note ---
Assessment and Plan Acute hypoxemic respiratory failure Multifocal infiltrates/presumed pneumonia Moderate protein calorie malnutrition Low grade fevers (CXR with significant improvement in bilateral infiltrates) - transition to oral steroids - get BMP and address - repeat lactate levels remains elevated but procalcitonin improved - gentle hydration with IVNS for lactic acidema - sputum C&S grew normal [place] - ABG reviewed and addressed - follow KADY & VENKATA levels - continue supplemental oxygen, wean for O2 sats > 90% (transition off HFNC) - advance diet per [employer] TE[employer]ER rec's - completed empiric CAP AB's - outpatient PFT's - GI & VTE prophylaxis - Optimize nutritional status- BMI 18.9 - continue chronic home medications - Monitor hemodynamics closely - Monitor and trend fever curve - continue other care per attending ... re-evaluate in am & prn Subjective Date of service: 07/04/19 Principal diagnosis: Ac hypoxemic resp failure; Bilateral pneumonia; DPLD / Pulm Fibrosis Interval history: Patient is seen today for: Acute hypoxemic respiratory failure; Multifocal infiltrates/presumed pneumonia; Moderate protein calorie malnutrition; Low grade fevers Seen and examined at bedside; 24hour events reviewed; nursing and respiratory care staff consulted; no adverse overnight events reported to me; resting peacefully in bed; no new issues respiratory meyers and transitioned to regular flow oxygen Objective Vital Signs - 12hr 07/04/19 07/04/19 07/04/19 03:44 03:50 07:57 Temperature 98.6 F 97.8 F Pulse Rate 87 79 Pulse Rate [ 86 Anterior Bilateral Throughout] Respiratory 18 Rate Respiratory 20 Rate [Anterior Bilateral Throughout] Blood Pressure 136/66 147/62 O2 Sat by Pulse 97 99 Oximetry 07/04/19 07/04/19 07/04/19 08:00 12:16 13:19 Temperature Pulse Rate 76 Pulse Rate [ 78 Anterior Bilateral Throughout] Respiratory 18 Rate Respiratory 18 Rate [Anterior Bilateral Throughout] Blood Pressure 138/60 O2 Sat by Pulse 99 Oximetry 07/04/19 13:49 Temperature 98.8 F Pulse Rate 98 H Pulse Rate [ Anterior Bilateral Throughout] Respiratory Rate Respiratory Rate [Anterior Bilateral Throughout] Blood Pressure 146/52 O2 Sat by Pulse 98 Oximetry Constitutional: no acute distress, other (eldertly looking thin AAF, with normal respiratory effort at rest) Eyes: non-icteric ENT: oropharynx moist, other (s/p oral surgery) Neck: supple, no lymphadenopathy, no JVD Effort: normal Ascultation: Bilateral: diminished breath sounds, rhonchi (scant in bases) Percussion: Bilateral: not dull Cardiovascular: regular rate and rhythm Gastrointestinal: normoactive bowel sounds, soft, non-tender, non-distended Integumentary: normal Extremities: no cyanosis, no edema, pulses normal, no ischemia or petechiae Neurologic: normal mental status, non-focal exam, pupils equal and round, CN II- XII normal, motor strength normal and Psychiatric: mood appropriate, affect normal CBC and BMP: 07/03/19 06:39 06/27/19 05:38 ABG, PT/INR, D-dimer: ABG ABG pH 7.470 pH Units (7.350-7.450) H 07/03/19 09:02 ABG pCO2 38.6 mm Hg 07/03/19 09:02 ABG pO2 59.1 mm Hg (80.0-90.0) L 07/03/19 09:02 ABG O2 Saturation 92.4 % (95.0-99.0) L 07/03/19 09:02 Abnormal lab findings: Abnormal Labs 06/26/19 06/26/19 06/26/19 05:43 05:43 05:43 WBC RBC Hct MCV 100 H MCH 35 H MCHC 35 H Seg Neuts % (Manual) 87.0 H Lymphocytes % (Manual) 6.0 L Nucleated RBC % Seg Neutrophils # Man 9.0 H Lymphocytes # (Manual) 0.6 L ABG pH ABG pO2 ABG HCO3 ABG O2 Saturation ABG Base Excess ABG Hemoglobin Oxyhemoglobin Potassium Chloride 95.9 L Creatinine Glucose 153 H Lactic Acid 6.00 H* Calcium Magnesium AST 100 H Free T4 Thyroxine (T4) 06/26/19 06/26/19 06/26/19 05:43 12:47 12:47 WBC RBC Hct MCV MCH MCHC Seg Neuts % (Manual) Lymphocytes % (Manual) Nucleated RBC % Seg Neutrophils # Man Lymphocytes # (Manual) ABG pH ABG pO2 ABG HCO3 ABG O2 Saturation ABG Base Excess ABG Hemoglobin Oxyhemoglobin Potassium Chloride Creatinine Glucose Lactic Acid 2.20 H* Calcium Magnesium 1.10 L AST Free T4 0.69 L Thyroxine (T4) 06/26/19 06/27/19 06/27/19 12:47 05:38 05:38 WBC 14.3 H RBC 3.13 L Hct MCV 101 H MCH 34 H MCHC Seg Neuts % (Manual) 96.0 H Lymphocytes % (Manual) 3.0 L Nucleated RBC % Seg Neutrophils # Man 13.7 H Lymphocytes # (Manual) 0.4 L ABG pH ABG pO2 ABG HCO3 ABG O2 Saturation ABG Base Excess ABG Hemoglobin Oxyhemoglobin Potassium 3.5 L Chloride Creatinine 0.6 L Glucose 137 H Lactic Acid Calcium 7.5 L D Magnesium AST Free T4 Thyroxine (T4) 3.9 L 06/28/19 06/29/19 07/03/19 17:50 15:04 06:39 WBC RBC 2.92 L Hct 28.9 L MCV 99 H MCH 35 H MCHC 35 H Seg Neuts % (Manual) 91.0 H Lymphocytes % (Manual) 7.0 L Nucleated RBC % 2.0 H Seg Neutrophils # Man 9.0 H Lymphocytes # (Manual) 0.7 L ABG pH ABG pO2 55.7 L ABG HCO3 ABG O2 Saturation 88.5 L ABG Base Excess ABG Hemoglobin 11.1 L Oxyhemoglobin 86.8 L Potassium Chloride Creatinine Glucose Lactic Acid 2.90 H* Calcium Magnesium AST Free T4 Thyroxine (T4) 07/03/19 07/03/19 07/03/19 09:02 09:28 12:44 WBC RBC Hct MCV MCH MCHC Seg Neuts % (Manual) Lymphocytes % (Manual) Nucleated RBC % Seg Neutrophils # Man Lymphocytes # (Manual) ABG pH 7.470 H ABG pO2 59.1 L ABG HCO3 27.5 H ABG O2 Saturation 92.4 L ABG Base Excess 3.6 H ABG Hemoglobin 10.3 L Oxyhemoglobin 90.7 L Potassium Chloride Creatinine Glucose Lactic Acid 2.80 H* 3.10 H* Calcium Magnesium AST Free T4 Thyroxine (T4) 07/03/19 07/03/19 07/04/19 19:20 21:27 04:14 WBC RBC Hct MCV MCH MCHC Seg Neuts % (Manual) Lymphocytes % (Manual) Nucleated RBC % Seg Neutrophils # Man Lymphocytes # (Manual) ABG pH ABG pO2 ABG HCO3 ABG O2 Saturation ABG Base Excess ABG Hemoglobin Oxyhemoglobin Potassium Chloride Creatinine Glucose Lactic Acid 3.30 H* 3.30 H* 2.50 H* Calcium Magnesium AST Free T4 Thyroxine (T4) 07/04/19 07/04/19 07/04/19 06:27 08:32 10:19 WBC RBC Hct MCV MCH MCHC Seg Neuts % (Manual) Lymphocytes % (Manual) Nucleated RBC % Seg Neutrophils # Man Lymphocytes # (Manual) ABG pH ABG pO2 ABG HCO3 ABG O2 Saturation ABG Base Excess ABG Hemoglobin Oxyhemoglobin Potassium Chloride Creatinine Glucose Lactic Acid 2.70 H* 2.90 H* 4.00 H* Calcium Magnesium AST Free T4 Thyroxine (T4) Allied health notes reviewed: nursing
[2019-07-04] MEDS: ENOXAPARIN 40 MG/0.4 ML INJ SUB-Q SCH (23:18)
[2019-07-04] MEDS ORDERED: hydrALAZINE 20 MG/1 ML INJ IV PRN (23:33)
[2019-07-05] MEDS: SODIUM CHLORIDE 0.9% 1000 ML 1,000 ML IV SCH (00:53)
[2019-07-05] MEDS: dilTIAZem 60 MG TAB PO SCH ×6 (06:05→21:06)
[2019-07-05] MEDS: LEVOTHYROXINE 25 MCG TAB PO SCH (06:08)
[2019-07-05] MEDS: ARFORMOTEROL 15 MCG/2 ML NEBU IH SCH ×2 (09:27→19:30)
[2019-07-05] MEDS: BUDESONIDE 0.5 MG/2 ML NEBU IH SCH ×2 (09:27→19:30)
[2019-07-05] MEDS: IPRATROPIUM/ALBUTEROL SULFATE 3 ML AMPUL.NEB IH SCH ×3 (09:27→19:30)
[2019-07-05] MEDS: methylPREDNISolone Sod Succinate 40 MG/1 ML INJ IV SCH ×2 (09:55→21:02)
[2019-07-05] MEDS: HYDROcodone/ACETAMINOPHEN 7.5-325MG TAB PO PRN ×2 (10:02→20:26)
--- NOTE | 2019-07-05 10:25 | Progress Note ---
Assessment and Plan Assessment and plan: 68-year-old patient admitted with bilateral pneumonia and sepsis , on IV antibiotics Patient also has acute hypoxic respiratory failure continues to need high flow oxygen The patient had trial nasal cannula oxygen 2-3 L, saturating about 90% Bilateral pneumonia/sepsis?: Resolved Received antibiotics Vanco Rocephin and Zithromax. Completed treatment Monitor off antibiotics per ID ,Pulmonary following . Persistent lactic acidosis : Unknown etiology resolved Acute hypoxic respiratory failure Patient was on high flow oxygen for a long time, Today trial nasal cannula 2-3 L, O2 sats is reasonable CT chest consistent with diffuse proliferative disease, . 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 Mild to moderate malnutrition; dietitian consult, continue Ensure shakes DVT prophylaxis; lovenox Plan of care reviewed with the patient and her nurse Possible discharge home tomorrow if cleared by pulmonary History Interval history: Patient feels better and wants to go home Saturating 94% on 3 L of nasal cannula oxygen Denies chest pain or shortness of breath Vital signs reviewed Hospitalist Physical - Constitutional Vitals: Temp Pulse Resp BP Pulse Ox 98.0 F 76 20 124/49 97 07/05/19 07:50 07/05/19 09:27 07/05/19 09:27 07/05/19 07:50 07/05/19 09:25 General appearance: Present: mild distress, well-nourished - EENT Eyes: Present: PERRL, EOM intact - Neck Neck: Present: supple, normal ROM - Respiratory Respiratory effort: normal Respiratory: bilateral: diminished, negative: rales, rhonchi, wheezing - Cardiovascular Rhythm: regular Heart Sounds: Present: S1 & S2 - Extremities Extremities: no ischemia, No edema - Abdominal General gastrointestinal: soft, non-tender, non-distended, normal bowel sounds - Integumentary Integumentary: Present: clear, warm - Psychiatric Psychiatric: appropriate mood/affect, cooperative - Neurologic Neurologic: CNII-XII intact, moves all extremities Results - Labs CBC & Chem 7: 07/03/19 06:39 06/27/19 05:38 Labs: Laboratory Last Values WBC 9.9 K/mm3 (4.5-11.0) 07/03/19 06:39 RBC 2.92 M/mm3 (3.65-5.03) L 07/03/19 06:39 Hgb 10.2 gm/dl (10.1-14.3) 07/03/19 06:39 Hct 28.9 % (30.3-42.9) L 07/03/19 06:39 MCV 99 fl (79-97) H 07/03/19 06:39 MCH 35 pg (28-32) H 07/03/19 06:39 MCHC 35 % (30-34) H 07/03/19 06:39 RDW 14.7 % (13.2-15.2) 07/03/19 06:39 Plt Count 359 K/mm3 (140-440) 07/03/19 06:39 Add Manual Diff Complete 07/03/19 06:39 Total Counted 100 07/03/19 06:39 Seg Neutrophils % Director Of Agronomy 07/03/19 06:39 Seg Neuts % (Manual) 91.0 % (40.0-70.0) H 07/03/19 06:39 Band Neutrophils % 0 % 07/03/19 06:39 Lymphocytes % (Manual) 7.0 % (13.4-35.0) L 07/03/19 06:39 Reactive Lymphs % (Man) 1.0 % 07/03/19 06:39 Monocytes % (Manual) 1.0 % (0.0-7.3) 07/03/19 06:39 Eosinophils % (Manual) 0 % (0.0-4.3) 07/03/19 06:39 Basophils % (Manual) 0 % (0.0-1.8) 07/03/19 06:39 Metamyelocytes % 0 % 07/03/19 06:39 Myelocytes % 0 % 07/03/19 06:39 Promyelocytes % 0 % 07/03/19 06:39 Blast Cells % 0 % 07/03/19 06:39 Nucleated RBC % 2.0 % (0.0-0.9) H 07/03/19 06:39 Seg Neutrophils # Man 9.0 K/mm3 (1.8-7.7) H 07/03/19 06:39 Band Neutrophils # 0.0 K/mm3 07/03/19 06:39 Lymphocytes # (Manual) 0.7 K/mm3 (1.2-5.4) L 07/03/19 06:39 Abs React Lymphs (Man) 0.1 K/mm3 07/03/19 06:39 Monocytes # (Manual) 0.1 K/mm3 (0.0-0.8) 07/03/19 06:39 Eosinophils # (Manual) 0.0 K/mm3 (0.0-0.4) 07/03/19 06:39 Basophils # (Manual) 0.0 K/mm3 (0.0-0.1) 07/03/19 06:39 Metamyelocytes # 0.0 K/mm3 07/03/19 06:39 Myelocytes # 0.0 K/mm3 07/03/19 06:39 Promyelocytes # 0.0 K/mm3 07/03/19 06:39 Blast Cells # 0.0 K/mm3 07/03/19 06:39 WBC Morphology Not Reportable 07/03/19 06:39 Hypersegmented Neuts Not Reportable 07/03/19 06:39 Hyposegmented Neuts Not Reportable 07/03/19 06:39 Hypogranular Neuts Not Reportable 07/03/19 06:39 Smudge Cells Not Reportable 07/03/19 06:39 Toxic Granulation Not Reportable 07/03/19 06:39 Toxic Vacuolation Not Reportable 07/03/19 06:39 Dohle Bodies Not Reportable 07/03/19 06:39 Pelger-Huet Anomaly Not Reportable 07/03/19 06:39 Ty Rods Not Reportable 07/03/19 06:39 Platelet Estimate Consistent w auto 07/03/19 06:39 Clumped Platelets Not Reportable 07/03/19 06:39 Plt Clumps, EDTA Not Reportable 07/03/19 06:39 Large Platelets Not Reportable 07/03/19 06:39 Giant Platelets Not Reportable 07/03/19 06:39 Platelet Satelliting Not Reportable 07/03/19 06:39 Plt Morphology Comment Not Reportable 07/03/19 06:39 RBC Morphology Normal 07/03/19 06:39 Dimorphic RBCs Not Reportable 07/03/19 06:39 Polychromasia Not Reportable 07/03/19 06:39 Hypochromasia Not Reportable 07/03/19 06:39 Poikilocytosis Not Reportable 07/03/19 06:39 Anisocytosis Not Reportable 07/03/19 06:39 Microcytosis Not Reportable 07/03/19 06:39 Macrocytosis Not Reportable 07/03/19 06:39 Spherocytes Not Reportable 07/03/19 06:39 Pappenheimer Bodies Not Reportable 07/03/19 06:39 Sickle Cells Not Reportable 07/03/19 06:39 Target Cells Not Reportable 07/03/19 06:39 Tear Drop Cells Not Reportable 07/03/19 06:39 Ovalocytes Not Reportable 07/03/19 06:39 Helmet Cells Not Reportable 07/03/19 06:39 Sidhu-[place] Bodies Not Reportable 07/03/19 06:39 Haiku Rings Not Reportable 07/03/19 06:39 Treichlers Cells Not Reportable 07/03/19 06:39 Bite Cells Not Reportable 07/03/19 06:39 Crenated Cell Not Reportable 07/03/19 06:39 Elliptocytes Not Reportable 07/03/19 06:39 Acanthocytes (Spur) Not Reportable 07/03/19 06:39 Rouleaux Not Reportable 07/03/19 06:39 Hemoglobin C Crystals Not Reportable 07/03/19 06:39 Schistocytes Not Reportable 07/03/19 06:39 Malaria parasites Not Reportable 07/03/19 06:39 Maxwell Bodies Not Reportable 07/03/19 06:39 Hem Pathologist Commnt No 07/03/19 06:39 ABG pH 7.470 pH Units (7.350-7.450) H 07/03/19 09:02 ABG pCO2 38.6 mm Hg 07/03/19 09:02 ABG pO2 59.1 mm Hg (80.0-90.0) L 07/03/19 09:02 ABG HCO3 27.5 mmol/L (20.0-26.0) H 07/03/19 09:02 ABG O2 Saturation 92.4 % (95.0-99.0) L 07/03/19 09:02 ABG O2 Content 13.1 (0.0-44) 07/03/19 09:02 ABG Base Excess 3.6 mmol/L (-2.0-3.0) H 07/03/19 09:02 ABG Hemoglobin 10.3 gm/dl (12.0-16.0) L 07/03/19 09:02 ABG Carboxyhemoglobin 1.4 % (0.0-5.0) 07/03/19 09:02 ABG Methemoglobin 0.5 % (0.0-1.5) 07/03/19 09:02 Oxyhemoglobin 90.7 % (95.0-99.0) L 07/03/19 09:02 FiO2 21 % 07/03/19 09:02 Sodium 139 mmol/L (137-145) 06/27/19 05:38 Potassium 3.5 mmol/L (3.6-5.0) L 06/27/19 05:38 Chloride 104.0 mmol/L (98-107) 06/27/19 05:38 Carbon Dioxide 23 mmol/L (22-30) 06/27/19 05:38 Anion Gap 16 mmol/L 06/27/19 05:38 BUN 9 mg/dL (7-17) 06/27/19 05:38 Creatinine 0.6 mg/dL (0.7-1.2) L 06/27/19 05:38 Estimated GFR > 60 ml/min 06/27/19 05:38 BUN/Creatinine Ratio 15 % 06/27/19 05:38 Glucose 137 mg/dL (65-100) H 06/27/19 05:38 Lactic Acid 1.80 mmol/L (0.7-2.0) 07/05/19 05:44 Calcium 7.5 mg/dL (8.4-10.2) L D 06/27/19 05:38 Magnesium 1.90 mg/dL (1.7-2.3) 06/27/19 05:38 Total Bilirubin 0.40 mg/dL (0.1-1.2) 06/26/19 05:43 AST 100 units/L (5-40) H 06/26/19 05:43 ALT 49 units/L (7-56) 06/26/19 05:43 Alkaline Phosphatase 54 units/L (35-129) 06/26/19 05:43 Troponin T < 0.010 ng/mL (0.00-0.029) 06/26/19 05:43 Total Protein 7.6 g/dL (6.3-8.2) 06/26/19 05:43 Albumin 4.1 g/dL (3.9-5) 06/26/19 05:43 Albumin/Globulin Ratio 1.2 % 06/26/19 05:43 Angiotensin Convert Enz See scanned result 06/29/19 13:50 Procalcitonin 0.90 ng/mL (<0.15) 07/01/19 04:30 TSH 0.939 mlU/mL (0.270-4.200) 06/26/19 12:47 Free T4 0.69 ng/dL (0.76-1.46) L 06/26/19 12:47 Thyroxine (T4) 3.9 ug/dL (4.0-12.0) L 06/26/19 12:47 Urine Color Straw (Yellow) 06/26/19 Unknown Urine Turbidity Clear (Clear) 06/26/19 Unknown Urine pH 6.0 (5.0-7.0) 06/26/19 Unknown Ur Specific [place] 1.006 (1.003-1.030) 06/26/19 Unknown Urine Protein <15 mg/dl mg/dL (Negative) 06/26/19 Unknown Urine Glucose (UA) Neg mg/dL (Negative) 06/26/19 Unknown Urine Ketones Neg mg/dL (Negative) 06/26/19 Unknown Urine Blood Neg (Negative) 06/26/19 Unknown Urine Nitrite Neg (Negative) 06/26/19 Unknown Urine Bilirubin Neg (Negative) 06/26/19 Unknown Urine Urobilinogen < 2.0 mg/dL (<2.0) 06/26/19 Unknown Ur Leukocyte Esterase Neg (Negative) 06/26/19 Unknown Urine WBC (Auto) 1.0 /HPF (0.0-6.0) 06/26/19 Unknown Urine RBC (Auto) 1.0 /HPF (0.0-6.0) 06/26/19 Unknown Urine Bacteria (Auto) 1+ /HPF (Negative) 06/26/19 Unknown Urine Mucus Few /HPF 06/26/19 Unknown Nasal Screen MRSA (PCR) Negative (Negative) 06/30/19 Unknown Vancomycin Trough 8.3 ug/mL (5.0-20.0) 07/02/19 14:33 Urine Opiates Screen Presumptive negative 06/26/19 Unknown Urine Methadone Screen Presumptive negative 06/26/19 Unknown Ur Barbiturates Screen Presumptive negative 06/26/19 Unknown Ur Phencyclidine Scrn Presumptive negative 06/26/19 Unknown Ur Amphetamines Screen Presumptive negative 06/26/19 Unknown U Benzodiazepines Scrn Presumptive negative 06/26/19 Unknown Urine Cocaine Screen Presumptive negative 06/26/19 Unknown U Marijuana (THC) Screen Presumptive negative 06/26/19 Unknown Drugs of Abuse Note Disclamer 06/26/19 Unknown Influenza A (Rapid) Negative (Negative) 06/27/19 03:00 Influenza A (RT-PCR) Negative (Negative) 06/30/19 Unknown Influenza B (Rapid) Negative (Negative) 06/27/19 03:00 Influenza B (RT-PCR) Negative (Negative) 06/30/19 Unknown Active Medications - Current Medications Current Medications: Generic Name Dose Route Start Last Admin Trade Name Freq PRN Reason Stop Dose Admin Acetaminophen 650 mg 06/26/19 09:47 Tylenol PO Q4H PRN Pain MILD(1-3)/Fever >100.5/CALLEJAS Acetaminophen/Hydrocodone Bitart 1 each 06/26/19 10:39 07/05/19 10:02 [place] 7.5/325 PO 1 each Q6H PRN Administration Pain, Moderate (4-6) Albuterol 2.5 mg 06/27/19 14:12 Proventil IH Q4HRT PRN Shortness Of Breath Albuterol/Ipratropium 1 ampul 07/04/19 20:00 07/05/19 09:27 Duoneb *Not For Prn Use* IH Not Given TIDRT PEPE Arformoterol Tartrate 15 mcg 06/27/19 20:00 07/05/19 09:27 Brovana Nebu IH 15 mcg Q12HRT PEPE Administration Budesonide 0.5 mg 06/27/19 20:00 07/05/19 09:27 Pulmicort IH 0.5 mg Q12HRT PEPE Administration Clonazepam 1 mg 06/26/19 23:00 07/04/19 23:59 Klonopin PO 1 mg QHS PEPE Administration Diltiazem HCl 60 mg 06/27/19 22:00 07/05/19 06:08 Cardizem PO 60 mg Q8HR PEPE Administration Enoxaparin Sodium 40 mg 06/26/19 22:00 07/04/19 23:18 Enoxaparin SUB-Q 40 mg QDAY@2200 PEPE Administration Sodium Chloride 1,000 mls @ 42 mls/hr 06/26/19 10:00 07/05/19 00:53 Nacl 0.9% 1000 Ml IV 75 mls/hr DIRECT PEPE Administration Levothyroxine Sodium 25 mcg 06/30/19 06:00 07/05/19 06:08 Synthroid PO 25 mcg DAILY@0600 PEPE Administration Methylprednisolone Sodium Succinate 40 mg 07/03/19 10:00 07/05/19 09:55 Solu-Medrol IV 40 mg Q12HR PEPE Administration Miscellaneous Medication 1 tab 06/26/19 10:00 06/26/19 11:11 Methscopolamine [place] [Pamine] PO Not Given DAILY PEPE Ondansetron HCl 4 mg 06/26/19 09:47 Zofran IV Q8H PRN Nausea And Vomiting Sodium Chloride 10 ml 06/26/19 10:00 07/05/19 09:56 Sodium Chloride Flush Syringe 10 Ml IV 10 ml BID PEPE Administration Sodium Chloride 10 ml 06/26/19 09:47 07/04/19 23:19 Sodium Chloride Flush Syringe 10 Ml IV 10 ml PRN PRN Administration LINE FLUSH Nutrition/Malnutrition Assess - Dietary Evaluation Nutrition/Malnutrition Findings: Nutrition Notes Start: 06/30/19 12:08 Freq: Status: Active Protocol: Document 07/04/19 09:45 BERT (Rec: 07/04/19 09:50 BERT [id number]) Co-Sign 07/04/19 09:45 LP Nutrition Notes Initial or Follow up Reassessment Current Diagnosis Sepsis,Hypertension Other Pertinent Diagnosis hx of mouth cancer, pneumonia, hypothyroidism Current Diet Pureed Labs/Tests Reviewed Pertinent Medications Solu-Medrol Height 5 ft 4 in Weight 50.2 kg [place] Body Weight (kg) 54.54 BMI 19.0 Weight Status Emaciated Subjective/Other Information F/U for PO and ONS intakes. Pt stated her appetite has been good and about 75% of breakfast. Pt stated eating about 50% of meals yesterday and 3 Ensures. Percent of energy/protein needs met: 100%/100% Burn Absent Trauma Absent GI Symptoms None Difficulty In Swallowing,Chewing Current % PO Good (75-100%) Minimum of two criteria Yes Energy Intake (non-severe) <75% Estimated Energy Requirement >7 days Muscle Mass Mild Depletion (non-severe) Reduced Search Engine Optimization Analyst Strength Measurably Reduced (severe) #1 Nutrition Diagnosis Malnutrition Diagnosis Progress(for reassessment Continues documentation) Is patient on ventilator? No Is Patient Ambulatory and/or Out of Bed Yes REE-([place]-St. Jeor-ambulatory/OOB) [ 1335.100 [id number]] Kcal/Kg value to use for calculation 30 Approximate Energy Requirements Using 1506 kcal/Kg Calculation Used for Recommendations Kcal/kg Additional Notes Protein: 60-75g (1.2-1.5g/kg) Fluid: 1 ml/kcal Nutrition Intervention Change Diet Order: Continue current Add Supplement/Snack (indicate name/kcal Ensure enlive all flavors TID /protein ) Provides kCal: 1,050 Provides Protein (gm) 60 Goal #1 Meet at least 80% of energy and protein needs Goal #2 Weight gain/maintenance Anticipated Discharge Needs: Pureed diet with ONS TID Follow-Up By: 07/08/19 Additional Comments F/U for PO/ONS intakes
--- NOTE | 2019-07-05 15:21 | Progress Note ---
Assessment and Plan Acute hypoxemic respiratory failure Multifocal infiltrates/presumed pneumonia Moderate protein calorie malnutrition Low grade fevers (CXR with significant improvement in bilateral infiltrates) - will need home oxygen evaluation - transitioned to oral steroids - get BMP and address - repeat lactate level and address - sputum C&S grew normal [place] - ABG reviewed and addressed - follow KADY & VENKATA levels - continue supplemental oxygen, wean for O2 sats > 90% (transition off HFNC) - advance diet per FINANCE BROKER rec's - completed empiric CAP AB's - outpatient PFT's - GI & VTE prophylaxis - Optimize nutritional status- BMI 18.9 - continue chronic home medications - Monitor hemodynamics closely - Monitor and trend fever curve - continue other care per attending ... re-evaluate in am & prn Subjective Date of service: 07/05/19 Principal diagnosis: Ac hypoxemic resp failure; Bilateral pneumonia; ? DPLD / Pulm Fibrosis Interval history: Patient is seen today for: Acute hypoxemic respiratory failure; Multifocal infiltrates/presumed pneumonia; Moderate protein calorie malnutrition; Low grade fevers Seen and examined at bedside; 24hour events reviewed; nursing and respiratory care staff consulted; no adverse overnight events reported to me; resting peacefully in bed; looks and feels marisabel; no chest pains; no hemoptysis; RIVERO improved Objective Vital Signs - 12hr 07/05/19 07/05/19 07/05/19 06:08 07:50 09:25 Temperature 98.0 F Pulse Rate 94 H 72 Pulse Rate [ Anterior Bilateral Throughout] Respiratory 18 Rate Respiratory Rate [Anterior Bilateral Throughout] Blood Pressure 126/57 124/49 O2 Sat by Pulse 98 97 Oximetry 07/05/19 07/05/19 09:27 14:05 Temperature 98.7 F Pulse Rate 98 H Pulse Rate [ 76 Anterior Bilateral Throughout] Respiratory 20 Rate Respiratory 20 Rate [Anterior Bilateral Throughout] Blood Pressure 148/53 O2 Sat by Pulse 100 Oximetry Constitutional: no acute distress, other (eldertly looking thin AAF, with normal respiratory effort at rest) Eyes: non-icteric ENT: oropharynx moist, other (s/p oral surgery) Neck: supple, no lymphadenopathy, no JVD Effort: normal Ascultation: Bilateral: diminished breath sounds, rhonchi (scant in bases) Percussion: Bilateral: not dull Cardiovascular: regular rate and rhythm Gastrointestinal: normoactive bowel sounds, soft, non-tender, non-distended Integumentary: normal Extremities: no cyanosis, no edema, pulses normal, no ischemia or petechiae Neurologic: normal mental status, non-focal exam, pupils equal and round, CN II- XII normal, motor strength normal and Psychiatric: mood appropriate, affect normal CBC and BMP: 07/03/19 06:39 06/27/19 05:38 ABG, PT/INR, D-dimer: ABG ABG pH 7.470 pH Units (7.350-7.450) H 07/03/19 09:02 ABG pCO2 38.6 mm Hg 07/03/19 09:02 ABG pO2 59.1 mm Hg (80.0-90.0) L 07/03/19 09:02 ABG O2 Saturation 92.4 % (95.0-99.0) L 07/03/19 09:02 Abnormal lab findings: Abnormal Labs 06/26/19 06/26/19 06/26/19 05:43 05:43 05:43 WBC RBC Hct MCV 100 H MCH 35 H MCHC 35 H Seg Neuts % (Manual) 87.0 H Lymphocytes % (Manual) 6.0 L Nucleated RBC % Seg Neutrophils # Man 9.0 H Lymphocytes # (Manual) 0.6 L ABG pH ABG pO2 ABG HCO3 ABG O2 Saturation ABG Base Excess ABG Hemoglobin Oxyhemoglobin Potassium Chloride 95.9 L Creatinine Glucose 153 H Lactic Acid 6.00 H* Calcium Magnesium AST 100 H Free T4 Thyroxine (T4) 06/26/19 06/26/19 06/26/19 05:43 12:47 12:47 WBC RBC Hct MCV MCH MCHC Seg Neuts % (Manual) Lymphocytes % (Manual) Nucleated RBC % Seg Neutrophils # Man Lymphocytes # (Manual) ABG pH ABG pO2 ABG HCO3 ABG O2 Saturation ABG Base Excess ABG Hemoglobin Oxyhemoglobin Potassium Chloride Creatinine Glucose Lactic Acid 2.20 H* Calcium Magnesium 1.10 L AST Free T4 0.69 L Thyroxine (T4) 06/26/19 06/27/19 06/27/19 12:47 05:38 05:38 WBC 14.3 H RBC 3.13 L Hct MCV 101 H MCH 34 H MCHC Seg Neuts % (Manual) 96.0 H Lymphocytes % (Manual) 3.0 L Nucleated RBC % Seg Neutrophils # Man 13.7 H Lymphocytes # (Manual) 0.4 L ABG pH ABG pO2 ABG HCO3 ABG O2 Saturation ABG Base Excess ABG Hemoglobin Oxyhemoglobin Potassium 3.5 L Chloride Creatinine 0.6 L Glucose 137 H Lactic Acid Calcium 7.5 L D Magnesium AST Free T4 Thyroxine (T4) 3.9 L 06/28/19 06/29/19 07/03/19 17:50 15:04 06:39 WBC RBC 2.92 L Hct 28.9 L MCV 99 H MCH 35 H MCHC 35 H Seg Neuts % (Manual) 91.0 H Lymphocytes % (Manual) 7.0 L Nucleated RBC % 2.0 H Seg Neutrophils # Man 9.0 H Lymphocytes # (Manual) 0.7 L ABG pH ABG pO2 55.7 L ABG HCO3 ABG O2 Saturation 88.5 L ABG Base Excess ABG Hemoglobin 11.1 L Oxyhemoglobin 86.8 L Potassium Chloride Creatinine Glucose Lactic Acid 2.90 H* Calcium Magnesium AST Free T4 Thyroxine (T4) 07/03/19 07/03/19 07/03/19 09:02 09:28 12:44 WBC RBC Hct MCV MCH MCHC Seg Neuts % (Manual) Lymphocytes % (Manual) Nucleated RBC % Seg Neutrophils # Man Lymphocytes # (Manual) ABG pH 7.470 H ABG pO2 59.1 L ABG HCO3 27.5 H ABG O2 Saturation 92.4 L ABG Base Excess 3.6 H ABG Hemoglobin 10.3 L Oxyhemoglobin 90.7 L Potassium Chloride Creatinine Glucose Lactic Acid 2.80 H* 3.10 H* Calcium Magnesium AST Free T4 Thyroxine (T4) 07/03/19 07/03/19 07/04/19 19:20 21:27 04:14 WBC RBC Hct MCV MCH MCHC Seg Neuts % (Manual) Lymphocytes % (Manual) Nucleated RBC % Seg Neutrophils # Man Lymphocytes # (Manual) ABG pH ABG pO2 ABG HCO3 ABG O2 Saturation ABG Base Excess ABG Hemoglobin Oxyhemoglobin Potassium Chloride Creatinine Glucose Lactic Acid 3.30 H* 3.30 H* 2.50 H* Calcium Magnesium AST Free T4 Thyroxine (T4) 07/04/19 07/04/19 07/04/19 06:27 08:32 10:19 WBC RBC Hct MCV MCH MCHC Seg Neuts % (Manual) Lymphocytes % (Manual) Nucleated RBC % Seg Neutrophils # Man Lymphocytes # (Manual) ABG pH ABG pO2 ABG HCO3 ABG O2 Saturation ABG Base Excess ABG Hemoglobin Oxyhemoglobin Potassium Chloride Creatinine Glucose Lactic Acid 2.70 H* 2.90 H* 4.00 H* Calcium Magnesium AST Free T4 Thyroxine (T4) 07/04/19 07/04/19 07/04/19 13:58 15:39 20:08 WBC RBC Hct MCV MCH MCHC Seg Neuts % (Manual) Lymphocytes % (Manual) Nucleated RBC % Seg Neutrophils # Man Lymphocytes # (Manual) ABG pH ABG pO2 ABG HCO3 ABG O2 Saturation ABG Base Excess ABG Hemoglobin Oxyhemoglobin Potassium Chloride Creatinine Glucose Lactic Acid 3.90 H* 3.20 H* 3.40 H* Calcium Magnesium AST Free T4 Thyroxine (T4) Allied health notes reviewed: nursing
[2019-07-05] MEDS: ENOXAPARIN 40 MG/0.4 ML INJ SUB-Q SCH (21:02)
[2019-07-05] MEDS: clonazePAM 0.5 MG TAB PO SCH (21:02)
[2019-07-06] MEDS: SODIUM CHLORIDE 0.9% 1000 ML 1,000 ML IV SCH (01:27)
[2019-07-06] MEDS: LEVOTHYROXINE 25 MCG TAB PO SCH (05:08)
[2019-07-06] MEDS: HYDROcodone/ACETAMINOPHEN 7.5-325MG TAB PO PRN ×3 (05:09→22:39)
[2019-07-06] MEDS: BUDESONIDE 0.5 MG/2 ML NEBU IH SCH ×2 (08:48→21:37)
[2019-07-06] MEDS: ARFORMOTEROL 15 MCG/2 ML NEBU IH SCH ×2 (08:48→21:37)
[2019-07-06] MEDS: IPRATROPIUM/ALBUTEROL SULFATE 3 ML AMPUL.NEB IH SCH ×3 (08:48→21:37)
[2019-07-06] MEDS: methylPREDNISolone Sod Succinate 40 MG/1 ML INJ IV SCH (09:46)
[2019-07-06] MEDS: dilTIAZem 60 MG TAB PO SCH ×3 (09:46→22:43)
--- NOTE | 2019-07-06 12:09 | Progress Note ---
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 Copd exacerbation Patient doing much better on nebulizers and steroids and oxygen Bilateral pneumonia/sepsis?: Resolved Received antibiotics Vanco Rocephin and Zithromax. Completed treatment Monitor off antibiotics per ID ,Pulmonary following . Persistent lactic acidosis : Unknown etiology resolved Hypokalemia Repleted,f/u electrolytes Hypomagnesemia Repleted Hypothyroidism, new onset low-dose Synthroid Hypertension Optimize meds. Mild to moderate malnutrition; dietitian consult, continue Ensure shakes DVT prophylaxis; lovenox Plan of care reviewed with the patient and her nurse Possible discharge home tomorrow if cleared by pulmonary Evaluation for home oxygen History Interval history: I have seen the patient and examined in her room No unusual overnight events reported Hospitalist Physical - Constitutional Vitals: Temp Pulse Resp BP Pulse Ox 97.4 F L 64 20 130/70 98 07/06/19 07:24 07/06/19 08:00 07/06/19 08:00 07/06/19 07:24 07/06/19 08:50 General appearance: Present: no acute distress, well-nourished - EENT Eyes: Present: PERRL, EOM intact - Neck Neck: Present: supple, normal ROM - Respiratory Respiratory effort: normal Respiratory: bilateral: diminished, negative: rales, rhonchi, wheezing - Cardiovascular Rhythm: regular Heart Sounds: Present: S1 & S2 - Extremities Extremities: no ischemia, No edema - Abdominal General gastrointestinal: soft, non-tender, non-distended, normal bowel sounds - Integumentary Integumentary: Present: clear, warm - Psychiatric Psychiatric: appropriate mood/affect, cooperative - Neurologic Neurologic: CNII-XII intact, moves all extremities Results - Labs CBC & Chem 7: 07/03/19 06:39 06/27/19 05:38 Labs: Laboratory Last Values WBC 9.9 K/mm3 (4.5-11.0) 07/03/19 06:39 RBC 2.92 M/mm3 (3.65-5.03) L 07/03/19 06:39 Hgb 10.2 gm/dl (10.1-14.3) 07/03/19 06:39 Hct 28.9 % (30.3-42.9) L 07/03/19 06:39 MCV 99 fl (79-97) H 07/03/19 06:39 MCH 35 pg (28-32) H 07/03/19 06:39 MCHC 35 % (30-34) H 07/03/19 06:39 RDW 14.7 % (13.2-15.2) 07/03/19 06:39 Plt Count 359 K/mm3 (140-440) 07/03/19 06:39 Add Manual Diff Complete 07/03/19 06:39 Total Counted 100 07/03/19 06:39 Seg Neutrophils % Event Operations Manager 07/03/19 06:39 Seg Neuts % (Manual) 91.0 % (40.0-70.0) H 07/03/19 06:39 Band Neutrophils % 0 % 07/03/19 06:39 Lymphocytes % (Manual) 7.0 % (13.4-35.0) L 07/03/19 06:39 Reactive Lymphs % (Man) 1.0 % 07/03/19 06:39 Monocytes % (Manual) 1.0 % (0.0-7.3) 07/03/19 06:39 Eosinophils % (Manual) 0 % (0.0-4.3) 07/03/19 06:39 Basophils % (Manual) 0 % (0.0-1.8) 07/03/19 06:39 Metamyelocytes % 0 % 07/03/19 06:39 Myelocytes % 0 % 07/03/19 06:39 Promyelocytes % 0 % 07/03/19 06:39 Blast Cells % 0 % 07/03/19 06:39 Nucleated RBC % 2.0 % (0.0-0.9) H 07/03/19 06:39 Seg Neutrophils # Man 9.0 K/mm3 (1.8-7.7) H 07/03/19 06:39 Band Neutrophils # 0.0 K/mm3 07/03/19 06:39 Lymphocytes # (Manual) 0.7 K/mm3 (1.2-5.4) L 07/03/19 06:39 Abs React Lymphs (Man) 0.1 K/mm3 07/03/19 06:39 Monocytes # (Manual) 0.1 K/mm3 (0.0-0.8) 07/03/19 06:39 Eosinophils # (Manual) 0.0 K/mm3 (0.0-0.4) 07/03/19 06:39 Basophils # (Manual) 0.0 K/mm3 (0.0-0.1) 07/03/19 06:39 Metamyelocytes # 0.0 K/mm3 07/03/19 06:39 Myelocytes # 0.0 K/mm3 07/03/19 06:39 Promyelocytes # 0.0 K/mm3 07/03/19 06:39 Blast Cells # 0.0 K/mm3 07/03/19 06:39 WBC Morphology Not Reportable 07/03/19 06:39 Hypersegmented Neuts Not Reportable 07/03/19 06:39 Hyposegmented Neuts Not Reportable 07/03/19 06:39 Hypogranular Neuts Not Reportable 07/03/19 06:39 Smudge Cells Not Reportable 07/03/19 06:39 Toxic Granulation Not Reportable 07/03/19 06:39 Toxic Vacuolation Not Reportable 07/03/19 06:39 Dohle Bodies Not Reportable 07/03/19 06:39 Pelger-Huet Anomaly Not Reportable 07/03/19 06:39 Ty Rods Not Reportable 07/03/19 06:39 Platelet Estimate Consistent w auto 07/03/19 06:39 Clumped Platelets Not Reportable 07/03/19 06:39 Plt Clumps, EDTA Not Reportable 07/03/19 06:39 Large Platelets Not Reportable 07/03/19 06:39 Giant Platelets Not Reportable 07/03/19 06:39 Platelet Satelliting Not Reportable 07/03/19 06:39 Plt Morphology Comment Not Reportable 07/03/19 06:39 RBC Morphology Normal 07/03/19 06:39 Dimorphic RBCs Not Reportable 07/03/19 06:39 Polychromasia Not Reportable 07/03/19 06:39 Hypochromasia Not Reportable 07/03/19 06:39 Poikilocytosis Not Reportable 07/03/19 06:39 Anisocytosis Not Reportable 07/03/19 06:39 Microcytosis Not Reportable 07/03/19 06:39 Macrocytosis Not Reportable 07/03/19 06:39 Spherocytes Not Reportable 07/03/19 06:39 Pappenheimer Bodies Not Reportable 07/03/19 06:39 Sickle Cells Not Reportable 07/03/19 06:39 Target Cells Not Reportable 07/03/19 06:39 Tear Drop Cells Not Reportable 07/03/19 06:39 Ovalocytes Not Reportable 07/03/19 06:39 Helmet Cells Not Reportable 07/03/19 06:39 [place] Bodies Not Reportable 07/03/19 06:39 [place] Rings Not Reportable 07/03/19 06:39 Cut Off Cells Not Reportable 07/03/19 06:39 Bite Cells Not Reportable 07/03/19 06:39 Crenated Cell Not Reportable 07/03/19 06:39 Elliptocytes Not Reportable 07/03/19 06:39 Acanthocytes (Spur) Not Reportable 07/03/19 06:39 Rouleaux Not Reportable 07/03/19 06:39 Hemoglobin C Crystals Not Reportable 07/03/19 06:39 Schistocytes Not Reportable 07/03/19 06:39 Malaria parasites Not Reportable 07/03/19 06:39 [place] Bodies Not Reportable 07/03/19 06:39 Hem Pathologist Commnt No 07/03/19 06:39 ABG pH 7.470 pH Units (7.350-7.450) H 07/03/19 09:02 ABG pCO2 38.6 mm Hg 07/03/19 09:02 ABG pO2 59.1 mm Hg (80.0-90.0) L 07/03/19 09:02 ABG HCO3 27.5 mmol/L (20.0-26.0) H 07/03/19 09:02 ABG O2 Saturation 92.4 % (95.0-99.0) L 07/03/19 09:02 ABG O2 Content 13.1 (0.0-44) 07/03/19 09:02 ABG Base Excess 3.6 mmol/L (-2.0-3.0) H 07/03/19 09:02 ABG Hemoglobin 10.3 gm/dl (12.0-16.0) L 07/03/19 09:02 ABG Carboxyhemoglobin 1.4 % (0.0-5.0) 07/03/19 09:02 ABG Methemoglobin 0.5 % (0.0-1.5) 07/03/19 09:02 Oxyhemoglobin 90.7 % (95.0-99.0) L 07/03/19 09:02 FiO2 21 % 07/03/19 09:02 Sodium 139 mmol/L (137-145) 06/27/19 05:38 Potassium 3.5 mmol/L (3.6-5.0) L 06/27/19 05:38 Chloride 104.0 mmol/L (98-107) 06/27/19 05:38 Carbon Dioxide 23 mmol/L (22-30) 06/27/19 05:38 Anion Gap 16 mmol/L 06/27/19 05:38 BUN 9 mg/dL (7-17) 06/27/19 05:38 Creatinine 0.6 mg/dL (0.7-1.2) L 06/27/19 05:38 Estimated GFR > 60 ml/min 06/27/19 05:38 BUN/Creatinine Ratio 15 % 06/27/19 05:38 Glucose 137 mg/dL (65-100) H 06/27/19 05:38 Lactic Acid 1.80 mmol/L (0.7-2.0) 07/05/19 05:44 Calcium 7.5 mg/dL (8.4-10.2) L D 06/27/19 05:38 Magnesium 1.90 mg/dL (1.7-2.3) 06/27/19 05:38 Total Bilirubin 0.40 mg/dL (0.1-1.2) 06/26/19 05:43 AST 100 units/L (5-40) H 06/26/19 05:43 ALT 49 units/L (7-56) 06/26/19 05:43 Alkaline Phosphatase 54 units/L (35-129) 06/26/19 05:43 Troponin T < 0.010 ng/mL (0.00-0.029) 06/26/19 05:43 Total Protein 7.6 g/dL (6.3-8.2) 06/26/19 05:43 Albumin 4.1 g/dL (3.9-5) 06/26/19 05:43 Albumin/Globulin Ratio 1.2 % 06/26/19 05:43 Angiotensin Convert Enz See scanned result 06/29/19 13:50 Procalcitonin 0.90 ng/mL (<0.15) 07/01/19 04:30 TSH 0.939 mlU/mL (0.270-4.200) 06/26/19 12:47 Free T4 0.69 ng/dL (0.76-1.46) L 06/26/19 12:47 Thyroxine (T4) 3.9 ug/dL (4.0-12.0) L 06/26/19 12:47 Urine Color Straw (Yellow) 06/26/19 Unknown Urine Turbidity Clear (Clear) 06/26/19 Unknown Urine pH 6.0 (5.0-7.0) 06/26/19 Unknown Ur Specific [place] 1.006 (1.003-1.030) 06/26/19 Unknown Urine Protein <15 mg/dl mg/dL (Negative) 06/26/19 Unknown Urine Glucose (UA) Neg mg/dL (Negative) 06/26/19 Unknown Urine Ketones Neg mg/dL (Negative) 06/26/19 Unknown Urine Blood Neg (Negative) 06/26/19 Unknown Urine Nitrite Neg (Negative) 06/26/19 Unknown Urine Bilirubin Neg (Negative) 06/26/19 Unknown Urine Urobilinogen < 2.0 mg/dL (<2.0) 06/26/19 Unknown Ur Leukocyte Esterase Neg (Negative) 06/26/19 Unknown Urine WBC (Auto) 1.0 /HPF (0.0-6.0) 06/26/19 Unknown Urine RBC (Auto) 1.0 /HPF (0.0-6.0) 06/26/19 Unknown Urine Bacteria (Auto) 1+ /HPF (Negative) 06/26/19 Unknown Urine Mucus Few /HPF 06/26/19 Unknown Nasal Screen MRSA (PCR) Negative (Negative) 06/30/19 Unknown Vancomycin Trough 8.3 ug/mL (5.0-20.0) 07/02/19 14:33 Urine Opiates Screen Presumptive negative 06/26/19 Unknown Urine Methadone Screen Presumptive negative 06/26/19 Unknown Ur Barbiturates Screen Presumptive negative 06/26/19 Unknown Ur Phencyclidine Scrn Presumptive negative 06/26/19 Unknown Ur Amphetamines Screen Presumptive negative 06/26/19 Unknown U Benzodiazepines Scrn Presumptive negative 06/26/19 Unknown Urine Cocaine Screen Presumptive negative 06/26/19 Unknown U Marijuana (THC) Screen Presumptive negative 06/26/19 Unknown Drugs of Abuse Note Disclamer 06/26/19 Unknown Influenza A (Rapid) Negative (Negative) 06/27/19 03:00 Influenza A (RT-PCR) Negative (Negative) 06/30/19 Unknown Influenza B (Rapid) Negative (Negative) 06/27/19 03:00 Influenza B (RT-PCR) Negative (Negative) 06/30/19 Unknown Active Medications - Current Medications Current Medications: Generic Name Dose Route Start Last Admin Trade Name Freq PRN Reason Stop Dose Admin Acetaminophen 650 mg 06/26/19 09:47 Tylenol PO Q4H PRN Pain MILD(1-3)/Fever >100.5/CALLEJAS Acetaminophen/Hydrocodone Bitart 1 each 06/26/19 10:39 07/06/19 11:29 [place] 7.5/325 PO 1 each Q6H PRN Administration Pain, Moderate (4-6) Albuterol 2.5 mg 06/27/19 14:12 Proventil IH Q4HRT PRN Shortness Of Breath Albuterol/Ipratropium 1 ampul 07/04/19 20:00 07/06/19 08:48 Duoneb *Not For Prn Use* IH 1 ampul TIDRT PEPE Administration Arformoterol Tartrate 15 mcg 06/27/19 20:00 07/06/19 08:48 Brovana Nebu IH 15 mcg Q12HRT PEPE Administration Budesonide 0.5 mg 06/27/19 20:00 07/06/19 08:48 Pulmicort IH 0.5 mg Q12HRT PEPE Administration Clonazepam 1 mg 06/26/19 23:00 07/05/19 21:02 Klonopin PO 1 mg QHS PEPE Administration Diltiazem HCl 60 mg 06/27/19 22:00 07/06/19 09:46 Cardizem PO 60 mg Q8HR PEPE Administration Enoxaparin Sodium 40 mg 06/26/19 22:00 07/05/19 21:02 Enoxaparin SUB-Q 40 mg QDAY@2200 PEPE Administration Sodium Chloride 1,000 mls @ 42 mls/hr 06/26/19 10:00 07/06/19 01:27 Nacl 0.9% 1000 Ml IV 75 mls/hr DIRECT PEPE Administration Levothyroxine Sodium 25 mcg 06/30/19 06:00 07/06/19 05:08 Synthroid PO 25 mcg DAILY@0600 PEPE Administration Methylprednisolone Sodium Succinate 40 mg 07/03/19 10:00 07/06/19 09:46 Solu-Medrol IV 40 mg Q12HR PEPE Administration Miscellaneous Medication 1 tab 06/26/19 10:00 06/26/19 11:11 Methscopolamine [place] [Pamine] PO Not Given DAILY PEPE Ondansetron HCl 4 mg 06/26/19 09:47 Zofran IV Q8H PRN Nausea And Vomiting Sodium Chloride 10 ml 06/26/19 10:00 07/06/19 09:47 Sodium Chloride Flush Syringe 10 Ml IV 10 ml BID PEPE Administration Sodium Chloride 10 ml 06/26/19 09:47 07/04/19 23:19 Sodium Chloride Flush Syringe 10 Ml IV 10 ml PRN PRN Administration LINE FLUSH Nutrition/Malnutrition Assess - Dietary Evaluation Nutrition/Malnutrition Findings: Nutrition Notes Start: 06/30/19 12:08 Freq: Status: Active Protocol: Document 07/04/19 09:45 BERT (Rec: 07/04/19 09:50 BERT [id number]) Co-Sign 07/04/19 09:45 LP Nutrition Notes Initial or Follow up Reassessment Current Diagnosis Sepsis,Hypertension Other Pertinent Diagnosis hx of mouth cancer, pneumonia, hypothyroidism Current Diet Pureed Labs/Tests Reviewed Pertinent Medications Solu-Medrol Height 5 ft 4 in Weight 50.2 kg [place] Body Weight (kg) 54.54 BMI 19.0 Weight Status Emaciated Subjective/Other Information F/U for PO and ONS intakes. Pt stated her appetite has been good and about 75% of breakfast. Pt stated eating about 50% of meals yesterday and 3 Ensures. Percent of energy/protein needs met: 100%/100% Burn Absent Trauma Absent GI Symptoms None Difficulty In Swallowing,Chewing Current % PO Good (75-100%) Minimum of two criteria Yes Energy Intake (non-severe) <75% Estimated Energy Requirement >7 days Muscle Mass Mild Depletion (non-severe) Reduced Inspector Glass Or Mirror Strength Measurably Reduced (severe) #1 Nutrition Diagnosis Malnutrition Diagnosis Progress(for reassessment Continues documentation) Is patient on ventilator? No Is Patient Ambulatory and/or Out of Bed Yes [facility] [ 1335.100 NUTR.[id number]] Kcal/Kg value to use for calculation 30 Approximate Energy Requirements Using 1506 kcal/Kg Calculation Used for Recommendations Kcal/kg Additional Notes Protein: 60-75g (1.2-1.5g/kg) Fluid: 1 ml/kcal Nutrition Intervention Change Diet Order: Continue current Add Supplement/Snack (indicate name/kcal Ensure enlive all flavors TID /protein ) Provides kCal: 1,050 Provides Protein (gm) 60 Goal #1 Meet at least 80% of energy and protein needs Goal #2 Weight gain/maintenance Anticipated Discharge Needs: Pureed diet with ONS TID Follow-Up By: 07/08/19 Additional Comments F/U for PO/ONS intakes
--- NOTE | 2019-07-06 13:37 | Progress Note ---
Assessment and Plan Acute hypoxemic respiratory failure Multifocal infiltrates/presumed pneumonia Moderate protein calorie malnutrition Low grade fevers (CXR with significant improvement in bilateral infiltrates) - needs home oxygen - transitioned to oral steroids (prednisone 40 mg qd) - get BMP and address - repeat lactate level now WNL - sputum C&S grew normal [place] - follow KADY & VENKATA levels - continue supplemental oxygen, wean for O2 sats > 90% (transitioned off HFNC) - advance diet per SUPPLY TECH rec's - completed empiric CAP AB's - outpatient PFT's - GI & VTE prophylaxis - Optimize nutritional status- BMI 18.9 - continue chronic home medications - Monitor hemodynamics closely - Monitor and trend fever curve - continue other care per attending - outpatient pulmonary clinic f/up post discharge ... re-evaluate in am & prn Subjective Date of service: 07/06/19 Principal diagnosis: Ac hypoxemic resp failure; Bilateral pneumonia; ? DPLD / Pulm Fibrosis Interval history: Patient is seen today for: Acute hypoxemic respiratory failure; Multifocal infiltrates/presumed pneumonia; Moderate protein calorie malnutrition; Low grade fevers Seen and examined at bedside; 24hour events reviewed; nursing and respiratory care staff consulted; no adverse overnight events reported to me; resting peacefully in bed; desaturated to 79% on RA with 20 step ambulation; denied chest pains; No N/V/F/C Objective Vital Signs - 12hr 07/06/19 07/06/19 07/06/19 02:13 02:19 07:24 Temperature 97.8 F 100.1 F H 97.4 F L Pulse Rate 114 H 85 Pulse Rate [ Anterior Bilateral Throughout] Respiratory 20 24 20 Rate Respiratory Rate [Anterior Bilateral Throughout] Blood Pressure 126/61 130/70 O2 Sat by Pulse 86 98 Oximetry 07/06/19 07/06/19 08:00 08:50 Temperature Pulse Rate Pulse Rate [ 64 Anterior Bilateral Throughout] Respiratory Rate Respiratory 20 Rate [Anterior Bilateral Throughout] Blood Pressure O2 Sat by Pulse 98 Oximetry Constitutional: no acute distress, other (eldertly looking thin AAF, with normal respiratory effort at rest) Eyes: non-icteric ENT: oropharynx moist, other (s/p oral surgery) Neck: supple, no lymphadenopathy, no JVD Effort: normal Ascultation: Bilateral: diminished breath sounds, rhonchi (scant in bases) Percussion: Bilateral: not dull Cardiovascular: regular rate and rhythm Gastrointestinal: normoactive bowel sounds, soft, non-tender, non-distended Integumentary: normal Extremities: no cyanosis, no edema, pulses normal, no ischemia or petechiae Neurologic: normal mental status, non-focal exam, pupils equal and round, CN II- XII normal, motor strength normal and Psychiatric: mood appropriate, affect normal CBC and BMP: 07/03/19 06:39 06/27/19 05:38 ABG, PT/INR, D-dimer: ABG ABG pH 7.470 pH Units (7.350-7.450) H 07/03/19 09:02 ABG pCO2 38.6 mm Hg 07/03/19 09:02 ABG pO2 59.1 mm Hg (80.0-90.0) L 07/03/19 09:02 ABG O2 Saturation 92.4 % (95.0-99.0) L 07/03/19 09:02 Abnormal lab findings: Abnormal Labs 06/26/19 06/26/19 06/26/19 05:43 05:43 05:43 WBC RBC Hct MCV 100 H MCH 35 H MCHC 35 H Seg Neuts % (Manual) 87.0 H Lymphocytes % (Manual) 6.0 L Nucleated RBC % Seg Neutrophils # Man 9.0 H Lymphocytes # (Manual) 0.6 L ABG pH ABG pO2 ABG HCO3 ABG O2 Saturation ABG Base Excess ABG Hemoglobin Oxyhemoglobin Potassium Chloride 95.9 L Creatinine Glucose 153 H Lactic Acid 6.00 H* Calcium Magnesium AST 100 H Free T4 Thyroxine (T4) 06/26/19 06/26/19 06/26/19 05:43 12:47 12:47 WBC RBC Hct MCV MCH MCHC Seg Neuts % (Manual) Lymphocytes % (Manual) Nucleated RBC % Seg Neutrophils # Man Lymphocytes # (Manual) ABG pH ABG pO2 ABG HCO3 ABG O2 Saturation ABG Base Excess ABG Hemoglobin Oxyhemoglobin Potassium Chloride Creatinine Glucose Lactic Acid 2.20 H* Calcium Magnesium 1.10 L AST Free T4 0.69 L Thyroxine (T4) 06/26/19 06/27/19 06/27/19 12:47 05:38 05:38 WBC 14.3 H RBC 3.13 L Hct MCV 101 H MCH 34 H MCHC Seg Neuts % (Manual) 96.0 H Lymphocytes % (Manual) 3.0 L Nucleated RBC % Seg Neutrophils # Man 13.7 H Lymphocytes # (Manual) 0.4 L ABG pH ABG pO2 ABG HCO3 ABG O2 Saturation ABG Base Excess ABG Hemoglobin Oxyhemoglobin Potassium 3.5 L Chloride Creatinine 0.6 L Glucose 137 H Lactic Acid Calcium 7.5 L D Magnesium AST Free T4 Thyroxine (T4) 3.9 L 06/28/19 06/29/19 07/03/19 17:50 15:04 06:39 WBC RBC 2.92 L Hct 28.9 L MCV 99 H MCH 35 H MCHC 35 H Seg Neuts % (Manual) 91.0 H Lymphocytes % (Manual) 7.0 L Nucleated RBC % 2.0 H Seg Neutrophils # Man 9.0 H Lymphocytes # (Manual) 0.7 L ABG pH ABG pO2 55.7 L ABG HCO3 ABG O2 Saturation 88.5 L ABG Base Excess ABG Hemoglobin 11.1 L Oxyhemoglobin 86.8 L Potassium Chloride Creatinine Glucose Lactic Acid 2.90 H* Calcium Magnesium AST Free T4 Thyroxine (T4) 07/03/19 07/03/19 07/03/19 09:02 09:28 12:44 WBC RBC Hct MCV MCH MCHC Seg Neuts % (Manual) Lymphocytes % (Manual) Nucleated RBC % Seg Neutrophils # Man Lymphocytes # (Manual) ABG pH 7.470 H ABG pO2 59.1 L ABG HCO3 27.5 H ABG O2 Saturation 92.4 L ABG Base Excess 3.6 H ABG Hemoglobin 10.3 L Oxyhemoglobin 90.7 L Potassium Chloride Creatinine Glucose Lactic Acid 2.80 H* 3.10 H* Calcium Magnesium AST Free T4 Thyroxine (T4) 07/03/19 07/03/19 07/04/19 19:20 21:27 04:14 WBC RBC Hct MCV MCH MCHC Seg Neuts % (Manual) Lymphocytes % (Manual) Nucleated RBC % Seg Neutrophils # Man Lymphocytes # (Manual) ABG pH ABG pO2 ABG HCO3 ABG O2 Saturation ABG Base Excess ABG Hemoglobin Oxyhemoglobin Potassium Chloride Creatinine Glucose Lactic Acid 3.30 H* 3.30 H* 2.50 H* Calcium Magnesium AST Free T4 Thyroxine (T4) 07/04/19 07/04/19 07/04/19 06:27 08:32 10:19 WBC RBC Hct MCV MCH MCHC Seg Neuts % (Manual) Lymphocytes % (Manual) Nucleated RBC % Seg Neutrophils # Man Lymphocytes # (Manual) ABG pH ABG pO2 ABG HCO3 ABG O2 Saturation ABG Base Excess ABG Hemoglobin Oxyhemoglobin Potassium Chloride Creatinine Glucose Lactic Acid 2.70 H* 2.90 H* 4.00 H* Calcium Magnesium AST Free T4 Thyroxine (T4) 07/04/19 07/04/19 07/04/19 13:58 15:39 20:08 WBC RBC Hct MCV MCH MCHC Seg Neuts % (Manual) Lymphocytes % (Manual) Nucleated RBC % Seg Neutrophils # Man Lymphocytes # (Manual) ABG pH ABG pO2 ABG HCO3 ABG O2 Saturation ABG Base Excess ABG Hemoglobin Oxyhemoglobin Potassium Chloride Creatinine Glucose Lactic Acid 3.90 H* 3.20 H* 3.40 H* Calcium Magnesium AST Free T4 Thyroxine (T4) Allied health notes reviewed: nursing
[2019-07-06] MEDS: predniSONE 20 MG TAB PO SCH (14:23)
[2019-07-06] MEDS: clonazePAM 0.5 MG TAB PO SCH (21:02)
[2019-07-06 22:10] LABS: ANA Screen, IFA Negative (Negative)
[2019-07-06] MEDS: ENOXAPARIN 40 MG/0.4 ML INJ SUB-Q SCH (22:13)
[2019-07-07] MEDS: LEVOTHYROXINE 25 MCG TAB PO SCH (06:55)
[2019-07-07] MEDS: HYDROcodone/ACETAMINOPHEN 7.5-325MG TAB PO PRN (08:53)
[2019-07-07] MEDS: BUDESONIDE 0.5 MG/2 ML NEBU IH SCH (08:57)
[2019-07-07] MEDS: IPRATROPIUM/ALBUTEROL SULFATE 3 ML AMPUL.NEB IH SCH ×2 (08:57→17:25)
[2019-07-07] MEDS: ARFORMOTEROL 15 MCG/2 ML NEBU IH SCH (08:57)
[2019-07-07] MEDS: predniSONE 20 MG TAB PO SCH (10:49)
[2019-07-07 13:21] VITALS: BP 140/51
--- NOTE | 2019-07-07 13:34 | Progress Note ---
Assessment and Plan Patient awake and resting on Vapotherm 30% with O2 saturation 91%. Patient states breathing slightly better today. Patient is afebrile and has leukocytosis. Patient is on ceftriaxone, and vancomycin. ABGs from 06/28/2019 pH 7.38, pCO2 42, pO2 56, HCO3 24, O2 saturation 89%, FiO2 50% Chest CT from 06/27/2019 reported Moderate patchy airspace disease is identified throughout both lungs. The upper lobes and left lower lobe are most affected. There is no obvious mass given the infiltrate. Bilateral pneumonic infiltrates as described. Chest X-ray 06/26/2019 reported Patchy bilateral airspace disease is concerning for multifocal pneumonia. Follow-up is recommended. Repeat ABGs on room air. Repeat CXR. - Patient Problems (1) Acute hypoxemic respiratory failure Current Visit: Yes Status: Acute Plan to address problem: 1. Vapotherm FIO2 30% 2. Albuterol and atrovent aerosol treatments q 6 hrs PRN for shortness of breath 3. Continue Brovana and Budesonide 4. Continue IV solumedrol 5. Continue rocephin, and vancomycin 6. Continue Lovenox 7. Recommend GI prophylaxis 8. Repeat ABGs on room air 9. Repeat Chest X-ray (2) Multifocal pneumonia Current Visit: Yes Status: Acute Plan to address problem: 1. Vapotherm FIO2 30% 2. Albuterol and atrovent aerosol treatments q 6 hrs PRN for shortness of breath 3. Continue Brovana and Budesonide 4. Continue IV solumedrol 5. Continue rocephin, and vancomycin 6. Continue Lovenox 7. Recommend GI prophylaxis 8. Repeat ABGs on room air 9. Repeat Chest X-ray (3) HTN (hypertension) Current Visit: Yes Status: Chronic Plan to address problem: Management as per Primary Care Subjective Date of service: 07/07/19 Principal diagnosis: Ac hypoxemic resp failure; Bilateral pneumonia; ? DPLD / Pulm Fibrosis Interval history: Patient awake and resting on Vapotherm 30% with O2 saturation 91%. Patient states breathing slightly better today. Patient is afebrile and has leukocytosis. Patient is on ceftriaxone, and vancomycin. ABGs from 06/28/2019 pH 7.38, pCO2 42, pO2 56, HCO3 24, O2 saturation 89%, FiO2 50% Chest CT from 06/27/2019 reported Moderate patchy airspace disease is identified throughout both lungs. The upper lobes and left lower lobe are most affected. There is no obvious mass given the infiltrate . Bilateral pneumonic infiltrates as described. Chest X-ray 06/26/2019 reported Patchy bilateral airspace disease is concerning for multifocal pneumonia. Follow-up is recommended. Repeat ABGs on room air. Repeat CXR Objective Vital Signs - 12hr 07/07/19 07/07/19 07/07/19 01:42 07:44 08:00 Temperature 97.7 F 97.6 F Pulse Rate 85 75 Pulse Rate [ 94 H Anterior Bilateral Throughout] Respiratory 20 20 Rate Respiratory 18 Rate [Anterior Bilateral Throughout] Blood Pressure 132/67 120/42 O2 Sat by Pulse 90 99 Oximetry 07/07/19 07/07/19 07/07/19 09:01 12:36 12:39 Temperature Pulse Rate 82 63 Pulse Rate [ Anterior Bilateral Throughout] Respiratory Rate Respiratory Rate [Anterior Bilateral Throughout] Blood Pressure O2 Sat by Pulse 96 87 83 L Oximetry 07/07/19 07/07/19 12:42 12:57 Temperature 98.7 F Pulse Rate 89 81 Pulse Rate [ Anterior Bilateral Throughout] Respiratory 20 Rate Respiratory Rate [Anterior Bilateral Throughout] Blood Pressure 140/51 O2 Sat by Pulse 99 98 Oximetry Constitutional: no acute distress, other (eldertly looking thin AAF, with normal respiratory effort at rest) Eyes: non-icteric ENT: oropharynx moist, other (s/p oral surgery) Neck: supple, no lymphadenopathy, no JVD Effort: normal Ascultation: Bilateral: diminished breath sounds, rhonchi (scant in bases) Percussion: Bilateral: not dull Cardiovascular: regular rate and rhythm Gastrointestinal: normoactive bowel sounds, soft, non-tender, non-distended Integumentary: normal Extremities: no cyanosis, no edema, pulses normal, no ischemia or petechiae Neurologic: normal mental status, non-focal exam, pupils equal and round, CN II- XII normal, motor strength normal and Psychiatric: mood appropriate, affect normal CBC and BMP: 07/03/19 06:39 06/27/19 05:38 ABG, PT/INR, D-dimer: ABG ABG pH 7.470 pH Units (7.350-7.450) H 07/03/19 09:02 ABG pCO2 38.6 mm Hg 07/03/19 09:02 ABG pO2 59.1 mm Hg (80.0-90.0) L 07/03/19 09:02 ABG O2 Saturation 92.4 % (95.0-99.0) L 07/03/19 09:02 Abnormal lab findings: Abnormal Labs 06/26/19 06/26/19 06/26/19 05:43 05:43 05:43 WBC RBC Hct MCV 100 H MCH 35 H MCHC 35 H Seg Neuts % (Manual) 87.0 H Lymphocytes % (Manual) 6.0 L Nucleated RBC % Seg Neutrophils # Man 9.0 H Lymphocytes # (Manual) 0.6 L ABG pH ABG pO2 ABG HCO3 ABG O2 Saturation ABG Base Excess ABG Hemoglobin Oxyhemoglobin Potassium Chloride 95.9 L Creatinine Glucose 153 H Lactic Acid 6.00 H* Calcium Magnesium AST 100 H Free T4 Thyroxine (T4) 06/26/19 06/26/19 06/26/19 05:43 12:47 12:47 WBC RBC Hct MCV MCH MCHC Seg Neuts % (Manual) Lymphocytes % (Manual) Nucleated RBC % Seg Neutrophils # Man Lymphocytes # (Manual) ABG pH ABG pO2 ABG HCO3 ABG O2 Saturation ABG Base Excess ABG Hemoglobin Oxyhemoglobin Potassium Chloride Creatinine Glucose Lactic Acid 2.20 H* Calcium Magnesium 1.10 L AST Free T4 0.69 L Thyroxine (T4) 06/26/19 06/27/19 06/27/19 12:47 05:38 05:38 WBC 14.3 H RBC 3.13 L Hct MCV 101 H MCH 34 H MCHC Seg Neuts % (Manual) 96.0 H Lymphocytes % (Manual) 3.0 L Nucleated RBC % Seg Neutrophils # Man 13.7 H Lymphocytes # (Manual) 0.4 L ABG pH ABG pO2 ABG HCO3 ABG O2 Saturation ABG Base Excess ABG Hemoglobin Oxyhemoglobin Potassium 3.5 L Chloride Creatinine 0.6 L Glucose 137 H Lactic Acid Calcium 7.5 L D Magnesium AST Free T4 Thyroxine (T4) 3.9 L 06/28/19 06/29/19 07/03/19 17:50 15:04 06:39 WBC RBC 2.92 L Hct 28.9 L MCV 99 H MCH 35 H MCHC 35 H Seg Neuts % (Manual) 91.0 H Lymphocytes % (Manual) 7.0 L Nucleated RBC % 2.0 H Seg Neutrophils # Man 9.0 H Lymphocytes # (Manual) 0.7 L ABG pH ABG pO2 55.7 L ABG HCO3 ABG O2 Saturation 88.5 L ABG Base Excess ABG Hemoglobin 11.1 L Oxyhemoglobin 86.8 L Potassium Chloride Creatinine Glucose Lactic Acid 2.90 H* Calcium Magnesium AST Free T4 Thyroxine (T4) 07/03/19 07/03/19 07/03/19 09:02 09:28 12:44 WBC RBC Hct MCV MCH MCHC Seg Neuts % (Manual) Lymphocytes % (Manual) Nucleated RBC % Seg Neutrophils # Man Lymphocytes # (Manual) ABG pH 7.470 H ABG pO2 59.1 L ABG HCO3 27.5 H ABG O2 Saturation 92.4 L ABG Base Excess 3.6 H ABG Hemoglobin 10.3 L Oxyhemoglobin 90.7 L Potassium Chloride Creatinine Glucose Lactic Acid 2.80 H* 3.10 H* Calcium Magnesium AST Free T4 Thyroxine (T4) 07/03/19 07/03/19 07/04/19 19:20 21:27 04:14 WBC RBC Hct MCV MCH MCHC Seg Neuts % (Manual) Lymphocytes % (Manual) Nucleated RBC % Seg Neutrophils # Man Lymphocytes # (Manual) ABG pH ABG pO2 ABG HCO3 ABG O2 Saturation ABG Base Excess ABG Hemoglobin Oxyhemoglobin Potassium Chloride Creatinine Glucose Lactic Acid 3.30 H* 3.30 H* 2.50 H* Calcium Magnesium AST Free T4 Thyroxine (T4) 07/04/19 07/04/19 07/04/19 06:27 08:32 10:19 WBC RBC Hct MCV MCH MCHC Seg Neuts % (Manual) Lymphocytes % (Manual) Nucleated RBC % Seg Neutrophils # Man Lymphocytes # (Manual) ABG pH ABG pO2 ABG HCO3 ABG O2 Saturation ABG Base Excess ABG Hemoglobin Oxyhemoglobin Potassium Chloride Creatinine Glucose Lactic Acid 2.70 H* 2.90 H* 4.00 H* Calcium Magnesium AST Free T4 Thyroxine (T4) 07/04/19 07/04/19 07/04/19 13:58 15:39 20:08 WBC RBC Hct MCV MCH MCHC Seg Neuts % (Manual) Lymphocytes % (Manual) Nucleated RBC % Seg Neutrophils # Man Lymphocytes # (Manual) ABG pH ABG pO2 ABG HCO3 ABG O2 Saturation ABG Base Excess ABG Hemoglobin Oxyhemoglobin Potassium Chloride Creatinine Glucose Lactic Acid 3.90 H* 3.20 H* 3.40 H* Calcium Magnesium AST Free T4 Thyroxine (T4) Allied health notes reviewed: nursing
[2019-07-07] MEDS: dilTIAZem 60 MG TAB PO SCH (14:12)
--- NOTE | 2019-07-07 16:06 | Discharge Summary ---
Providers - Providers Date of Admission: 06/26/19 06:36 Date of discharge: 07/07/19 Attending physician: DREW GIBSON 06/26/19 09:22 Consult to Physician [CONS] Routine Comment: Consulting Provider: JACKY KIM Physician Instructions: Reason For Exam: CRITICAL CARE 06/27/19 13:29 Physical Therapy Evaluation and Treat [CONS] Urgent Comment: Reason For Exam: weakness; o2 conservation 06/27/19 15:13 Speech Therapy Evaluation and Treat [CONS] Urgent Reason For Exam: aspiration pna, history of oral cancer s/p surgery 06/29/19 13:32 Consult to Dietitian/Nutrition [CONS] Routine Physician Instructions: Reason For Exam: Reason for Consult: Malnutrition 06/29/19 13:36 Consult to Physician [CONS] Routine Comment: Consulting Provider: MOISE GILLESPIE Physician Instructions: Reason For Exam: pna? Primary care physician: DYLAN HE MD Hospitalization Condition: Stable Disposition: DC-01 TO HOME OR SELFCARE Time spent for discharge: 32 min Core Measure Documentation - Palliative Care Palliative Care/ Comfort Measures: Not Applicable - Core Measures Any of the following diagnoses?: none Exam - Constitutional Vitals: Temp Pulse Resp BP Pulse Ox 98.7 F 81 20 140/51 98 07/07/19 12:57 07/07/19 14:12 07/07/19 12:57 07/07/19 14:12 07/07/19 12:57 Plan Activity: advance as tolerated, fall precautions Diet: other (pured diet advance as tolerated) Additional Instructions: Advised to use home oxygen 2-3 L as needed. If you have severe shortness of breath or chest pain, contact M.D. or go to emergency room Follow up with: DYLAN HE MD [Primary Care Provider] - 7 Days MOISE GILLESPIE MD [Staff Physician] - 7 Days BAILEY RODRIGUEZ MD [Staff Physician] - 7 Days Prescriptions: Fluticasone/Salmeterol [Advair Diskus 250-50 mcg] 1 puff IH BID #1 disk.w.dev dilTIAZem [Cardizem] 60 mg PO Q8HR #90 tablet Lactose-Reduced Food [Ensure High Protein] 237 ml PO TID #90 bottle Prednisone [predniSONE 10 mg (6-Day Pack, 21 Tabs)] 10 mg PO .TAPER #1 tab.ds.pk Albuterol INH(or & Nicu Only) [ProAir HFA Inhaler] 2 puff IH QID PRN #8.5 gram PRN Reason: Shortness Of Breath Levothyroxine [Synthroid] 25 mcg PO DAILY@0600 #30 tablet
== END 2019-07-07 17:11 | disposition home health service (06) | DRG 871 ==
LOC: ED 05:03 → CC1 06:36 → 4A 10:14 → 2B-ACE 06-27 14:47
PROVIDERS: ADMIT Internal Medicine Geriatric Medicine; ATTEND Internal Medicine
PROC: 4A033R1 Measurement of Arterial Saturation, Peripheral, Percutaneous Approach (ICD-10-PCS; principal; 2019-06-28)
DX: A41.9 Sepsis, unspecified organism (principal); J96.01 Acute respiratory failure with hypoxia; J18.9 Pneumonia, unspecified organism; E44.0 Moderate protein-calorie malnutrition; Z68.1 Body mass index [BMI] 19.9 or less, adult; J44.1 Chronic obstructive pulmonary disease with (acute) exacerbation; Z99.81 Dependence on supplemental oxygen; E87.6 Hypokalemia; E83.42 Hypomagnesemia; E03.9 Hypothyroidism, unspecified; I10 Essential (primary) hypertension; Z85.819 Personal history of malignant neoplasm of unspecified site of lip, oral cavity, and pharynx; Z90.89 Acquired absence of other organs; Z90.49 Acquired absence of other specified parts of digestive tract; Z82.49 Family history of ischemic heart disease and other diseases of the circulatory system
CPT/HCPCS: 36415; 36600; 71045; 71046; 71250; 80048; 80053; 80202; 80307; 81001; 82140; 82164; 82803; 83735; 84145; 84436; 84439; 84443; 84484; 85007; 85025; 86038; 87040; 87070; 87205; 87400; 87641; 93005; 93010; 93306; 94640; 94760; 96361; 96365; G0378; 87502; J0456; J0692; J0696; J1650; J2920; J2930; J3246; J3370; J3475; J7030; J7050; J7512